=== PATIENT | male | born 1985 | race Caucasian/White ===

== ENCOUNTER 2019-08-29 10:37 | Emergency (ER) | payer MEDICAID ==
[2019-08-29 10:56] VITALS: BP 169/105
[2019-08-29 11:19] LABS: APPEARANCE,URINE SLIGHTLY-CLOUDY; BILIRUBIN,URINE NEGATIVE (NEGATIVE); COLOR,URINE AMBER; GLUCOSE, URINE NEGATIVE (NEGATIVE); KETONES,URINE TRACE mg/dL (NEGATIVE); LEUKOCYTE ESTERASE,URINE NEGATIVE (NEGATIVE); NITRITE,URINE NEGATIVE (NEGATIVE); PROTEIN,URINE 30 mg/dL (NEGATIVE); URINE SPECIFIC GRAVITY 1.034
[2019-08-29 11:44] LABS: ABSOLUTE BASOPHILS # (AUTO) 0.1 10^3/uL (0.0-0.2); ABSOLUTE MONOCYTES (AUTO) 0.5 10^3/uL (0.1-1.4); ABSOLUTE NEUT (AUTO) 3.7 10^3/uL (1.7-8.2); BASOPHILS % (AUTO) 1.1 % (0-2); EOSINOPHILS % (AUTO) 0.6 % (0-6); HEMATOCRIT 36.6 % (37.9-51.0); HEMOGLOBIN 12.3 g/dL (13.5-17.0); LYMPHOCYTES % (AUTO) 31.4 % (13-45); MEAN CORPUSCULAR HEMOGLOBIN 26.5 pg (27.0-33.4); MEAN CORPUSCULAR HGB CONC 33.7 g/dL (32.0-36.0); MEAN CORPUSCULAR VOLUME 79 fl (80-97); MONOCYTES % (AUTO) 8.4 % (3-13); PLATELET COUNT 278 10^3/uL (150-450); RED BLOOD COUNT 4.65 10^6/uL (4.35-5.55); RED CELL DISTRIBUTION WIDTH 13.4 % (11.5-14.0); SEGMENTED NEUTROPHILS % (AUTO) 58.5 % (42-78); TOTAL CELLS COUNTED % (AUTO) 100 %; WHITE BLOOD COUNT 6.3 10^3/uL (4.0-10.5)
[2019-08-29 12:00] LABS: URINE BARBITURATES SCREEN NEGATIVE; URINE BENZODIAZEPINES SCREEN NEGATIVE; URINE COCAINE SCREEN NEGATIVE; URINE MARIJUANA (THC) SCREEN NEGATIVE; URINE PHENCYCLIDINE SCREEN NEGATIVE
[2019-08-29 12:03] LABS: ALBUMIN 4.1 g/dL (3.5-5.0); ALKALINE PHOSPHATASE 97 U/L (38-126); ASPARTATE AMINO TRANSFERASE 21 U/L (17-59); BILIRUBIN,TOTAL 0.4 mg/dL (0.2-1.3); BLOOD UREA NITROGEN 15 mg/dL (7-20); CALCIUM 9.1 mg/dL (8.4-10.2); CARBON DIOXIDE 30 mmol/L (22-30); CHLORIDE 107 mmol/L (98-107); GLUCOSE 103 mg/dL (75-110); TOTAL PROTEIN 7.4 g/dL (6.3-8.2)
[2019-08-29 12:06] LABS: ANION GAP 4 (5-19)
[2019-08-29 12:16] LABS: URINE METHADONE SCREEN UNCONFIRMED POSITIVE
--- NOTE | 2019-08-29 13:00 | ER Document Report ---
Entered by KYA BURTON SCRIBE 08/29/19 1125 Acting as scribe for:MILAGROS WAY MD ED General - General Chief Complaint: Flank Pain Stated Complaint: FLANK PAIN Time Seen by Provider: 08/29/19 11:04 Primary Care Provider: KALYAN KU [NO SILVIA MD] - Follow up as needed Information source: Patient Notes: This 34-year-old male with hypertension presents to the emergency department complaining of his "right kidney being cold to touch" for a year and a half. Patient said that his "whole body can be warm but kidneys are cold". Patient describes the pain as in the lower back bilaterally. Patient reports headache and depression. Patient denies difficulty swallowing, fever and chills. Patient said that he has been depressed, has not taken his medications or seen a physician since his mother 2 years ago. Patient denies suicide ideation. 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 Patient states that he is clean "for the most part". Patient said that he was only here because his girlfriend checked in and told him to get checked for his chronic issue. - Related Data Allergies/Adverse Reactions: Penicillins Allergy (Verified 07/18/12 18:08) Past Medical History - General Information source: Patient - Social History Smoking Status: Current Every Day Smoker Cigarette use (# per day): Yes Chew tobacco use (# tins/day): No Frequency of alcohol use: None Drug Abuse: Heroin Lives with: Spouse/Significant other Family History: None, DM Patient has homicidal ideation: No - Past Medical History Cardiac Medical History: Reports: Hx Hypertension - Not taking medications Psychiatric Medical History: Reports: Hx Depression Surgical Hx: Negative - Immunizations Hx Diphtheria, Pertussis, Tetanus Vaccination: Yes Review of Systems - Review of Systems Constitutional: See HPI. denies: Chills, Fever EENT: See HPI. denies: Difficulty swallowing Cardiovascular: No symptoms reported Respiratory: No symptoms reported Gastrointestinal: No symptoms reported Genitourinary: No symptoms reported Male Genitourinary: No symptoms reported Musculoskeletal: See HPI, Back pain Skin: No symptoms reported Hematologic/Lymphatic: No symptoms reported Neurological/Psychological: See HPI, Depression, Headaches. denies: Suicidal ideation -: Yes All other systems reviewed and negative Physical Exam - Vital signs Vitals: Temp Pulse Resp BP Pulse Ox 98.5 F 108 H 20 169/105 H 99 08/29/19 10:55 08/29/19 10:55 08/29/19 10:55 08/29/19 10:55 08/29/19 10:55 - Notes Notes: Physical Exam: General: Alert, appears well. HEENT: Normocephalic. Atraumatic. PERRL. Extraocular movements intact. Oropharynx clear. Neck: Supple. Non-tender. Respiratory: No respiratory distress. Clear and equal breath sounds bilaterally. Cardiovascular: Regular rate and rhythm. Abdominal: Normal Inspection. Non-tender. No distension. Normal Bowel Sounds. Back: No gross abnormalities. Extremities: Moves all four extremities. Upper extremities: Normal inspection. Normal ROM. Lower extremities: Normal inspection. No edema. Normal ROM. Neurological: Normal cognition. AAOx4. Normal speech. Psychological: Normal affect. Normal Mood. Skin: Warm. Dry. Normal color. Course - Re-evaluation Re-evalutation: 08/29/19 12:46 No signs of distress, resting comfortably. - Vital Signs Vital signs: Temp Pulse Resp BP Pulse Ox 98.5 F 108 H 20 169/105 H 99 08/29/19 11:11 08/29/19 10:55 08/29/19 10:55 08/29/19 10:55 08/29/19 10:55 08/29/19 12:46 Systolic diastolic hypertension. Patient has noncompliance on blood pressure medicine pulse 180 afebrile pulse ox 99% within normal limits. - Laboratory Result Diagrams: 08/29/19 11:30 08/29/19 11:30 Laboratory results interpreted by me: 08/29/19 08/29/19 08/29/19 11:00 11:30 11:30 Hgb 12.3 L Hct 36.6 L MCV 79 L MCH 26.5 L Anion Gap 4 L Urine Protein 30 H Urine Ketones TRACE H Urine Urobilinogen 2.0 H Discharge - Discharge Clinical Impression: Right flank discomfort, Left flank discomfort, Hypertension Disposition: AGAINST MEDICAL ADVICE Referrals: LOCALMD,NO [NO LOCAL MD] - Follow up as needed I personally performed the services described in the documentation, reviewed and edited the documentation which was dictated to the scribe in my presence, and it accurately records my words and actions.
== END 2019-08-29 12:35 | disposition left against medical advice (07) ==
LOC: ER 10:37
DX: R10.9 Unspecified abdominal pain (principal); I10 Essential (primary) hypertension; Z91.14 Patient's other noncompliance with medication regimen; M54.5 Low back pain; R51 Headache; F32.9 Major depressive disorder, single episode, unspecified; F17.210 Nicotine dependence, cigarettes, uncomplicated; F11.10 Opioid abuse, uncomplicated; Z79.891 Long term (current) use of opiate analgesic; Z88.0 Allergy status to penicillin
CPT/HCPCS: 36415; 80053; 80307; 81001; 85025; 99284

== ENCOUNTER 2020-01-15 07:05 | Emergency (ER) | payer MEDICAID ==
--- NOTE | 2020-01-15 08:17 | ER Document Report ---
ED Extremity Problem, Lower - General Chief Complaint: Ankle Pain Stated Complaint: ANKLE PAIN Time Seen by Provider: 01/15/20 08:11 Notes: CHIEF COMPLAINT: Left ankle and left third finger injury 2 days ago HPI: 34-year-old male presenting for evaluation of left ankle and foot pain left third finger pain secondary to fall after tripping in a [place] in his yard. Has been ambulatory despite the discomfort. Has taken ibuprofen at home. ROS: See HPI - all other systems were reviewed and are otherwise negative Constitutional: no fever Eyes: no drainage, no blurred vision ENT: no runny nose, no sore throat Cardiovascular: no chest pain Resp: no SOB, no cough GI: no vomiting, no diarrhea, no abdominal pain : no dysuria Integumentary: no rash Allergy: no hives Musculoskeletal: + extremity pain or swelling Neurological: no numbness/tingling, no weakness MEDICATIONS: I agree with the patient medications as charted by the RN. ALLERGIES: I agree with the allergies as charted by the RN. PAST MEDICAL HISTORY/PAST SURGICAL HISTORY: Reviewed and agree as charted by RN. SOCIAL HISTORY: Reviewed and agree as charted by RN. FAMILY HISTORY: No significant familial comorbid conditions directly related to patient complaint EXAM: Reviewed vital signs as charted by RN. CONSTITUTIONAL: Alert and oriented and responds appropriately to questions. Well-appearing; well-nourished HEAD: Normocephalic; atraumatic EYES: Conjunctivae clear, sclerae non-icteric ENT: normal nose; no rhinorrhea; moist mucous membranes NECK: Supple without meningismus CARD: RRR; no murmurs, no clicks, no rubs, no gallops; symmetric distal pulses RESP: Normal chest excursion without splinting or tachypnea; breath sounds clear and equal bilaterally; no wheezes, no rhonchi, no rales, pulse oximetry 90% on room air not hypoxic ABD/GI: Normal bowel sounds; non-distended; soft, non-tender, no rebound, no guarding; no palpable organomegaly or masses. BACK: The back appears normal and is non-tender to palpation, there is no CVA tenderness EXT: There is 2+ soft tissue edema over the left foot. There is tenderness on palpation over the entire dorsal left foot. No direct tenderness of the medial or lateral malleolus of the left ankle. Dorsalis pedis and posterior tibial pulses are present in the left foot and ankle. Sensation is intact in the toes with capillary refill less than 3 seconds. There is no proximal fibular pain on palpation of the left lower extremity. There is no visible soft tissue swelling of the left third finger, mild tenderness over the proximal phalanx of the left third finger on palpation with no visible bruising. There is no snuffbox tenderness in the left wrist on palpation SKIN: Normal color for age and race; warm; dry; good turgor; no acute lesions noted NEURO: Moves all extremities equally; Motor and sensory function intact PSYCH: The patient's mood and manner are appropriate. Grooming and personal hygiene are appropriate. MDM: 34-year-old male injury to the left ankle and foot left third finger will obtain x-ray for fracture - Related Data Allergies/Adverse Reactions: Penicillins Allergy (Verified 01/15/20 07:52) Past Medical History - Social History Smoking Status: Current Every Day Smoker Chew tobacco use (# tins/day): No Frequency of alcohol use: Rare Drug Abuse: None Family History: None, DM Patient has homicidal ideation: No - Past Medical History Cardiac Medical History: Reports: Hx Hypertension - Not taking medications Psychiatric Medical History: Reports: Hx Depression - Immunizations Hx Diphtheria, Pertussis, Tetanus Vaccination: Yes Physical Exam - Vital signs Vitals: Temp Pulse Resp BP Pulse Ox 98.4 F 115 H 17 121/63 94 01/15/20 07:13 01/15/20 07:13 01/15/20 07:13 01/15/20 07:13 01/15/20 07:13 Course - Re-evaluation Re-evalutation: 01/15/20 09:06 X-ray imaging of the ankle foot and left hand do not show evidence of fracture on my review. Likely an ankle sprain and finger sprain will place in splints for comfort, pain management, follow-up orthopedics - Vital Signs Vital signs: Temp Pulse Resp BP Pulse Ox 98.4 F 115 H 17 121/63 94 01/15/20 07:53 01/15/20 07:13 01/15/20 07:13 01/15/20 07:13 01/15/20 07:13 Procedures - Immobilization Left Ankle Time completed: 09:06 Pre-Proc Neuro Vasc Exam: Normal Immobilizer type: Ankle stirrup, Crutches Performed by: PCT Post-Proc Neuro Vasc Exam: Normal, Unchanged from pre-exam Alignment checked and good: Yes Left Finger 3rd digit Time completed: 09:07 Pre-Proc Neuro Vasc Exam: Normal Immobilizer type: Finger splint (Static) Performed by: PCT Post-Proc Neuro Vasc Exam: Normal, Unchanged from pre-exam Alignment checked and good: Yes Discharge - Discharge Clinical Impression: Fall Qualifiers: Encounter type: initial encounter Qualified Code(s): W19.XXXA - Unspecified fall, initial encounter Left ankle sprain Qualifiers: Encounter type: initial encounter Involved ligament of ankle: unspecified ligament Qualified Code(s): S93.402A - Sprain of unspecified ligament of left ankle, initial encounter Sprain of finger of left hand Qualifiers: Encounter type: initial encounter Finger: middle finger Sprain of finger site: metacarpophalangeal joint Qualified Code(s): S63.653A - Sprain of metacarpophalangeal joint of left middle finger, initial encounter Condition: Stable Disposition: HOME, SELF-CARE Additional Instructions: Ice and elevate the foot and ankle is much as possible. Use the ankle splint and crutches limited weightbearing over the next 3 to 5 days. Then begin weightbearing as tolerated. X-ray imaging did not show definitive evidence of a fracture or broken bone today. Take the Voltaren consistently for pain. Follow-up closely with orthopedics for further evaluation call for appointment Prescriptions: Diclofenac Sodium [Voltaren 50 Mg Tablet.] 50 mg PO BID #20 tablet. Referrals: BNE PRIDE JR, DO [ACTIVE PROVISIONAL STAFF] - Follow up as needed
[2020-01-15] MEDS ORDERED: HYDROCODONE/ACETAMINOPHEN 5-325 MG TABLET PO ONE (09:05)
--- NOTE | 2020-01-15 09:41 | RADIOLOGY REPORT (SQ) ---
EXAM DESCRIPTION: ANKLE LEFT COMPLETE; FOOT LEFT COMPLETE IMAGES COMPLETED DATE/TIME: 01/15/2020 8:47 am REASON FOR STUDY: ankle and foot injury; ankle injury COMPARISON: None. NUMBER OF VIEWS: Six views. TECHNIQUE: AP, lateral, and oblique radiographic images acquired of the left foot ankle. LIMITATIONS: None. FINDINGS: MINERALIZATION: Normal. BONES: No acute fracture or dislocation. No worrisome bone lesions. JOINTS: No effusions. SOFT TISSUES: Ankle swelling. No foreign body. OTHER: No other significant finding. IMPRESSION: No fracture. TECHNICAL DOCUMENTATION: JOB ID: [id number] 2010 [employer]- All Rights Reserved Reading location - IP/workstation name: [email or web address]
--- NOTE | 2020-01-15 09:41 | RADIOLOGY REPORT (SQ) ---
EXAM DESCRIPTION: HAND LEFT 3 VIEWS IMAGES COMPLETED DATE/TIME: 01/15/2020 8:47 am REASON FOR STUDY: ankle foot and hand injury with left hand pain COMPARISON: 02/13/2007 EXAM PARAMETERS: NUMBER OF VIEWS: Three views. TECHNIQUE: AP, lateral and oblique radiographic images acquired of the left hand. LIMITATIONS: None. FINDINGS: MINERALIZATION: Normal. BONES: No acute fracture or dislocation. No worrisome bone lesions. JOINTS: No effusions. SOFT TISSUES: No soft tissue swelling. No foreign body. OTHER: No other significant finding. IMPRESSION: NEGATIVE STUDY OF THE LEFT HAND. NO RADIOGRAPHIC EVIDENCE OF ACUTE INJURY. TECHNICAL DOCUMENTATION: JOB ID: [id number] 2010 [employer]- All Rights Reserved Reading location - IP/workstation name: [email or web address]
--- NOTE | 2020-01-15 09:41 | RADIOLOGY REPORT (SQ) ---
EXAM DESCRIPTION: ANKLE LEFT COMPLETE; FOOT LEFT COMPLETE IMAGES COMPLETED DATE/TIME: 01/15/2020 8:47 am REASON FOR STUDY: ankle and foot injury; ankle injury COMPARISON: None. NUMBER OF VIEWS: Six views. TECHNIQUE: AP, lateral, and oblique radiographic images acquired of the left foot ankle. LIMITATIONS: None. FINDINGS: MINERALIZATION: Normal. BONES: No acute fracture or dislocation. No worrisome bone lesions. JOINTS: No effusions. SOFT TISSUES: Ankle swelling. No foreign body. OTHER: No other significant finding. IMPRESSION: No fracture. TECHNICAL DOCUMENTATION: JOB ID: [id number] 2010 [employer]- All Rights Reserved Reading location - IP/workstation name: [email or web address]
[2020-01-15 09:51] VITALS: BP 117/71
== END 2020-01-15 09:51 | disposition home or self-care (01) ==
LOC: ER 07:05
DX: S93.402A Sprain of unspecified ligament of left ankle, initial encounter (principal); S63.653A Sprain of metacarpophalangeal joint of left middle finger, initial encounter; M79.672 Pain in left foot; W01.0XXA Fall on same level from slipping, tripping and stumbling without subsequent striking against object, initial encounter; F17.200 Nicotine dependence, unspecified, uncomplicated; I10 Essential (primary) hypertension; Z88.0 Allergy status to penicillin
CPT/HCPCS: 99284

== ENCOUNTER 2020-01-22 14:55 | Inpatient (IN) | payer MEDICAID ==
--- NOTE | 2020-01-22 16:24 | ER Document Report ---
ED Extremity Problem, Upper - General Chief Complaint: Flank Pain Stated Complaint: SHOULDER PAIN,LOWER BACK PAIN, Time Seen by Provider: 01/22/20 16:17 Mode of Arrival: Wheelchair Information source: Patient Notes: 34-year-old male presented to ED for complaint of right shoulder and bilateral kidney pain. He also had a fever of 102.7 and EMS they gave him Tylenol 975 and the EMS temperature is now 98.1. He is very diaphoretic from his fever breaking. He states he is very malnourished has not been eating properly. He states he also injured his shoulder right shoulder last night when his girlfriend and her boyfriend came into the house because they knew he was by himself. He states when he swung it them he somehow injured his right shoulder. He states when they found out that he has started going back to the methadone clinic and they want to know if he was really going to the methadone clinic. He states he knew he was by himself so they came in his house and he had to khari them out. I have greeted and performed a rapid initial assessment of this patient. A comprehensive ED assessment and evaluation of the patient, analysis of test results and completion of medical decision making process will be conducted by an additional ED providers. - Related Data Allergies/Adverse Reactions: Penicillins Allergy (Verified 01/15/20 07:52) Past Medical History - Social History Family History: None, DM - Past Medical History Cardiac Medical History: Reports: Hx Hypertension - Not taking medications Psychiatric Medical History: Reports: Hx Depression - Immunizations Hx Diphtheria, Pertussis, Tetanus Vaccination: Yes Physical Exam - Vital signs Vitals: Temp Pulse Resp BP Pulse Ox 98.1 F 101 H 20 110/58 L 97 01/22/20 15:12 01/22/20 15:12 01/22/20 15:12 01/22/20 15:12 01/22/20 15:12 Course - Vital Signs Vital signs: Temp Pulse Resp BP Pulse Ox 98.1 F 101 H 20 110/58 L 97 01/22/20 15:12 01/22/20 15:12 01/22/20 15:12 01/22/20 15:12 01/22/20 15:12
--- NOTE | 2020-01-22 16:25 | ER Document Report ---
ED Medical Screen (RME) - General Chief Complaint: Flank Pain Stated Complaint: SHOULDER PAIN,LOWER BACK PAIN, Time Seen by Provider: 01/22/20 16:17 Mode of Arrival: Wheelchair Notes: 34-year-old male presented to ED for complaint of right shoulder and bilateral kidney pain. He also had a fever of 102.7 and EMS they gave him Tylenol 975 and the EMS temperature is now 98.1. He is very diaphoretic from his fever anthony aking. He states he is very malnourished has not been eating properly. He states he also injured his shoulder right shoulder last night when his girlfriend and her boyfriend came into the house because they knew he was by himself. He states when he swung it them he somehow injured his right shoulder. He states when they found out that he has started going back to the methadone clinic and they want to know if he was really going to the methadone clinic. He states he knew he was by himself so they came in his house and he had to khari them out. I have greeted and performed a rapid initial assessment of this patient. A comprehensive ED assessment and evaluation of the patient, analysis of test results and completion of medical decision making process will be conducted by an additional ED providers. - Related Data Allergies/Adverse Reactions: Penicillins Allergy (Verified 01/15/20 07:52) Past Medical History - Past Medical History Cardiac Medical History: Reports: Hx Hypertension - Not taking medications Psychiatric Medical History: Reports: Hx Depression - Immunizations Hx Diphtheria, Pertussis, Tetanus Vaccination: Yes Physical Exam - Vital signs Vitals: Temp Pulse Resp BP Pulse Ox 98.1 F 101 H 20 110/58 L 97 01/22/20 15:12 01/22/20 15:12 01/22/20 15:12 01/22/20 15:12 01/22/20 15:12 Course - Vital Signs Vital signs: Temp Pulse Resp BP Pulse Ox 98.1 F 101 H 20 110/58 L 97 01/22/20 16:18 01/22/20 15:12 01/22/20 15:12 01/22/20 15:12 01/22/20 15:12
--- NOTE | 2020-01-22 17:46 | RADIOLOGY REPORT (SQ) ---
EXAM DESCRIPTION: CHEST SINGLE VIEW IMAGES COMPLETED DATE/TIME: 01/22/2020 5:04 pm REASON FOR STUDY: fever COMPARISON: None. EXAM PARAMETERS: NUMBER OF VIEWS: One view. TECHNIQUE: Single frontal radiographic view of the chest acquired. RADIATION DOSE: NA LIMITATIONS: None. FINDINGS: LUNGS AND PLEURA: There are patchy areas of opacification in the right mid and lower lung grajeda and to a lesser degree in the left base. MEDIASTINUM AND HILAR STRUCTURES: No masses. Contour normal. HEART AND VASCULAR STRUCTURES: Heart normal in size. Normal vasculature. BONES: No acute findings. HARDWARE: None in the chest. OTHER: No other significant finding. IMPRESSION: Multicentric opacification the lungs. Likely multicentric pneumonia. Recommend follow- up after treatment. TECHNICAL DOCUMENTATION: JOB ID: [id number] 2010 [employer]- All Rights Reserved Reading location - IP/workstation name: [email or web address]
--- NOTE | 2020-01-22 18:03 | EKG REPORT ---
SEVERITY:- NORMAL ECG - SINUS RHYTHM BASELINE ARTEFACT : Confirmed by: Jordi Allison MD 22-Jan-2020 18:02:28
[2020-01-22] MEDS: NORMAL SALINE 1000 ML 1,000 ML IV PRN ×2 (18:19→19:13)
[2020-01-22 18:54] LABS: A TYPE INFLUENZA AG NEGATIVE (NEGATIVE); B INFLUENZA AG NEGATIVE (NEGATIVE)
[2020-01-22 19:05] LABS: INTERNATIONAL RATION (INR) 1.35; PROTHROMBIN TIME 16.8 SEC (11.4-15.4)
[2020-01-22 19:09] LABS: ABSOLUTE LYMPHOCYTES (AUTO) 0.9 10^3/uL (0.5-4.7); ABSOLUTE MONOCYTES (AUTO) 0.9 10^3/uL (0.1-1.4); ABSOLUTE NEUT (AUTO) 8.2 10^3/uL (1.7-8.2); BASOPHILS % (AUTO) 0.3 % (0-2); EOSINOPHILS % (AUTO) 0.4 % (0-6); LYMPHOCYTES % (AUTO) 8.6 % (13-45); MEAN CORPUSCULAR HEMOGLOBIN 26.1 pg (27.0-33.4); MEAN CORPUSCULAR HGB CONC 34.4 g/dL (32.0-36.0); MEAN CORPUSCULAR VOLUME 76 fl (80-97); MONOCYTES % (AUTO) 9.1 % (3-13); PLATELET COUNT 101 10^3/uL (150-450); RED BLOOD COUNT 3.83 10^6/uL (4.35-5.55); RED CELL DISTRIBUTION WIDTH 14.2 % (11.5-14.0); SEGMENTED NEUTROPHILS % (AUTO) 81.6 % (42-78); TOTAL CELLS COUNTED % (AUTO) 100 %
[2020-01-22 19:33] LABS: ALBUMIN 2.4 g/dL (3.5-5.0); ALKALINE PHOSPHATASE 226 U/L (38-126); ANION GAP 9 (5-19); ASPARTATE AMINO TRANSFERASE 109 U/L (17-59); BILIRUBIN,DIRECT 0.4 mg/dL (0.0-0.4); BILIRUBIN,TOTAL 0.9 mg/dL (0.2-1.3); BLOOD UREA NITROGEN 17 mg/dL (7-20); CALCIUM 7.5 mg/dL (8.4-10.2); CARBON DIOXIDE 30 mmol/L (22-30); CHLORIDE 91 mmol/L (98-107); GLUCOSE 100 mg/dL (75-110); POTASSIUM 3.4 mmol/L (3.6-5.0); TOTAL PROTEIN 6.4 g/dL (6.3-8.2)
[2020-01-22] MEDS ORDERED: CALCIUM GLUCONATE 1000 MG/10 ML INJ IV ONE (19:39)
[2020-01-22] MEDS ORDERED: VANCOMYCIN HCL INJ 1000 MG VIAL IV ONE (19:39)
--- NOTE | 2020-01-22 20:43 | RADIOLOGY REPORT (SQ) ---
CT CHEST, ABDOMEN, AND PELVIS HISTORY: Flank pain. Pneumonia. COMPARISON: None. TECHNIQUE: CT scan of the chest, abdomen, and pelvis without IV contrast. This exam was performed according to our departmental dose-optimization program, which includes automated exposure control, adjustment of the mA and/or kV according to patient size and/or use of iterative reconstruction technique. FINDINGS: There are multiple collaterals scattered cavitary nodules throughout both lungs, with the largest lesion in the left lung base measuring 4.7 x 2.9 cm. There are also scattered areas of alteration and groundglass opacity predominantly in the right lower lobe. Trace bilateral pleural effusions but no pneumothorax. Normal heart size without pericardial effusion. The liver, spleen, pancreas, gallbladder, adrenal glands, and kidneys are unremarkable. No obstructing urinary stones are seen. The pelvic organs are also unremarkable. No bowel obstruction or inflammation. No intraperitoneal free fluid, free air, or adenopathy. The aorta is normal in caliber. No acute bony findings are seen. No abnormal body wall hernia. IMPRESSION: 1. Multiple bilateral cavitary nodules throughout both lungs with the largest measuring 4.7 cm and the left lower lobe. This may represent disseminated bacterial or tuberculous infection, immunologic sequela, or neoplastic disease. 2. No urinary stones or hydronephrosis.
[2020-01-22 20:45] LABS: URINE BARBITURATES SCREEN NEGATIVE; URINE BENZODIAZEPINES SCREEN NEGATIVE; URINE COCAINE SCREEN NEGATIVE; URINE MARIJUANA (THC) SCREEN NEGATIVE; URINE METHADONE SCREEN NEGATIVE; URINE PHENCYCLIDINE SCREEN NEGATIVE
[2020-01-22 20:46] LABS: URINE AMPHETAMINES SCREEN UNCONFIRMED POSITIVE
[2020-01-22 20:57] LABS: VENOUS BLOOD BASE EXCESS 3.9 mmol/L; VENOUS BLOOD HCO3 30.4 mmol/L (20-32); VENOUS BLOOD PCO2 52.1 mmHg (35-63); VENOUS BLOOD PH 7.38 (7.30-7.42)
[2020-01-22] MEDS ORDERED: POTASSIUM CHLORIDE 20 MEQ PACKET PO ONE ×2 (21:21→23:06)
[2020-01-22] MEDS ORDERED: ACETAMINOPHEN 325 MG TABLET PO ONE (21:28)
--- NOTE | 2020-01-22 21:33 | ER Document Report ---
ED General - General Chief Complaint: Flank Pain Stated Complaint: SHOULDER PAIN,LOWER BACK PAIN, Time Seen by Provider: 01/22/20 16:17 Mode of Arrival: Wheelchair Notes: Patient is a 34-year-old male who presents emergency department with a chief complaint of right shoulder and bilateral kidney pain. Patient states that he has a history of IV drug use. Patient states that he is currently on methadone. Patient states that he had relapsed and ended up taking some heroin. Denies using it IV. States that he snorted it. Denies any contact with anybody who tested positive for COVID-19. Patient was brought in via EMS. He had a temperature of 102. He was given Tylenol. - Related Data Allergies/Adverse Reactions: Penicillins Allergy (Verified 01/15/20 07:52) Past Medical History - Social History Smoking Status: Current Every Day Smoker Family History: None, DM Patient has homicidal ideation: No - Past Medical History Cardiac Medical History: Reports: Hx Hypertension - Not taking medications Psychiatric Medical History: Reports: Hx Depression - Immunizations Hx Diphtheria, Pertussis, Tetanus Vaccination: Yes Review of Systems - Review of Systems Notes: REVIEW OF SYSTEMS: CONSTITUTIONAL : Denies recent illness. Denies recent unintentional weight loss. Denies fever, chills, or sweats. EENT: Denies eye, ear, throat, or mouth pain, discharge, or symptoms. Denies nasal or sinus congestion. CARDIOVASCULAR: Denies chest pain. RESPIRATORY: See HPI. GASTROINTESTINAL: Denies nausea, vomiting, and diarrhea. Denies abdominal pain. Denies constipation. GENITOURINARY: Denies difficulty urinating, burning, blood in urine, urgency or frequency. MUSCULOSKELETAL: See HPI. Denies joint pain or swelling. SKIN: Denies rash, itchiness, or lesions HEMATOLOGIC : Denies easy bruising or bleeding. LYMPHATIC: Denies swollen, painful, enlarged glands. NEUROLOGICAL: Denies no numbness or tingling denies weakness. Denies headache. Denies altered mental status. Denies alteration in speech. PSYCHIATRIC: Denies stress, anxiety, alteration in sleep patterns, or depression. All other systems reviewed and negative. Physical Exam - Vital signs Vitals: Temp Pulse Resp BP Pulse Ox 98.1 F 101 H 20 110/58 L 97 01/22/20 15:12 01/22/20 15:12 01/22/20 15:12 01/22/20 15:12 01/22/20 15:12 - Notes Notes: PHYSICAL EXAMINATION: GENERAL: Appears well, healthy, well-nourished, no acute distress. HEAD: Normocephalic, atraumatic. EYES: PERRL, conjunctiva normal, all extraocular movements intact, sclera nonicteric ENT: Moist mucous membranes. NECK: Supple, no noticeable swelling, redness, rash. Normal range of motion. LUNGS: Diminished breath sounds throughout all lung grajeda. CARDIOVASCULAR: S1-S2, regular rate, regular rhythm. Radial pulses 2+, normal. ABDOMEN: Normoactive bowel sounds. Soft, nontender, no guarding, no rebound tenderness, and no masses palpated. EXTREMITIES: Normal strength and range of motion, no pitting or edema. No cyanosis. NEUROLOGICAL: Moves all extremities upon command. Strength 5/5 in all extremities. PSYCH: Normal mood, normal affect. SKIN: Warm, dry. No rash, lesions, ulcerations noted. Normal skin turgor. BACK: Bilateral CVA tenderness noted. Course - Re-evaluation Re-evalutation: 01/22/20 21:34 Patient shows cavitary lesions noted on his CT, concerning for tuberculosis. We will also test him for COVID-19. I spoke with Dr. Hensley, the radiologist. I asked him if he was able to see any evidence of an epidural abscess. He states that based off the - Vital Signs Vital signs: Temp Pulse Resp BP Pulse Ox 99.7 F 88 13 123/61 95 01/22/20 22:44 01/22/20 22:44 01/22/20 22:44 01/22/20 22:44 01/22/20 22:44 - Laboratory Result Diagrams: 01/22/20 18:14 01/22/20 18:14 Laboratory results interpreted by me: 01/22/20 01/22/20 01/22/20 18:14 18:14 18:14 RBC 3.83 L Hgb 10.0 L Hct 29.0 L MCV 76 L MCH 26.1 L RDW 14.2 H Plt Count 101 L Lymph % (Auto) 8.6 L Seg Neutrophils % 81.6 H PT 16.8 H Sodium 130.2 L Potassium 3.4 L Chloride 91 L Calcium 7.5 L AST 109 H ALT 82 H Alkaline Phosphatase 226 H Albumin 2.4 L Discharge - Discharge Clinical Impression: Suspected COVID-19 virus infection, Suspected tuberculosis, Malaise and fatigue Fever Qualifiers: Fever type: unspecified Qualified Code(s): R50.9 - Fever, unspecified Condition: Fair Disposition: ADMITTED INPATIENT Admitting Provider: Dr. Nobles Unit Admitted: Medical Floor - Covid rule out
[2020-01-22] MEDS ORDERED: ONDANSETRON HCL INJ/PF 4 MG/2 ML SDV IV PRN (22:27)
[2020-01-22] MEDS ORDERED: FAMOTIDINE 20 MG TABLET PO ONE (23:00)
--- NOTE | 2020-01-22 23:04 | PDOC H&P ---
History of Present Illness Admission Date/PCP: 01/22/20 22:49 Patient complains of: Cough, fever, chest pain. Right shoulder pain History of Present Illness: MARIA L PA is a 34 year old male with a history of IV drug use currently in recovery at methadone clinic now presents to the ER complaining of right shoulder pain after he swung his arm yesterday. On further questioning patient also states that he has been having cough productive of blood-streaked sputum for the past 3 weeks. He also endorses pleuritic chest pain bilaterally with exertional shortness of breath. Patient also has associated subjective fever night sweats, loss of appetite and he states that he lost about 40 pounds in the past 3 weeks. He states that he generally feels weak. He denies any nausea, vomiting, diarrhea, dysuria, hematuria, yellowish discoloration of thigh or any skin rash. Has no orthopnea, PND, leg swelling. Denies any recent sick contact history. He states that he is currently in recovery for opioid use and following up with methadone clinic the past 6-month but he has not relapsed recently and he snorted heroin but denies any IV drug use the past few weeks. Past Medical History Cardiac Medical History: Reports: Hypertension - Not taking medications Psychiatric Medical History: Reports: Depression Social History Information Source: Patient Lives with: Friend Smoking Status: Current Every Day Smoker Hx Recreational Drug Use: Yes Drugs: Heroin - Advance Directive Resuscitation Status: Full Code Family History Family History: None, DM Parental Family History Reviewed: Yes Children Family History Reviewed: Yes Sibling(s) Family History Reviewed.: Yes Medication/Allergy Home Medications: Ibuprofen [Motrin 800 mg Tablet] 800 mg PO TID #30 tablet 07/18/12 No Home Medications 07/18/12 Diclofenac Sodium [Voltaren 50 Mg Tablet.] 50 mg PO BID #20 tablet. 01/15/20 Allergies/Adverse Reactions: Penicillins Allergy (Verified 01/15/20 07:52) Review of Systems Constitutional: PRESENT: as per HPI Eyes: ABSENT: visual disturbances Ears: ABSENT: hearing changes Nose, Mouth, and Throat: ABSENT: as per HPI, headache(s), mouth pain, sore throat, vertigo, other Cardiovascular: ABSENT: chest pain, dyspnea on exertion, edema, orthropnea, palpitations Respiratory: PRESENT: as per HPI Gastrointestinal: ABSENT: abdominal pain, constipation, diarrhea, hematemesis, hematochezia, nausea, vomiting Genitourinary: ABSENT: dysuria, hematuria Musculoskeletal: PRESENT: as per HPI Integumentary: ABSENT: rash, wounds Endocrine: ABSENT: cold intolerance, heat intolerance, polydipsia, polyuria Hematologic/Lymphatic: ABSENT: easy bleeding, easy bruising Physical Exam Vital Signs: Temp Pulse Resp BP Pulse Ox 99.7 F 88 13 123/61 95 01/22/20 22:44 01/22/20 22:44 01/22/20 22:44 01/22/20 22:44 01/22/20 22:44 Intake & Output 01/21/20 01/22/20 01/23/20 06:59 06:59 06:59 Intake Total 189 Balance 189 Weight 74.8 kg Additional comments: GENERAL APPEARANCE: Acutely sick looking but not in respiratory distress HEENT: Normocephalic and atraumatic. No scleral icterus. Dry oral mucosa NECK: Supple. No lymphadenopathy.No carotid bruit. No JVD CHEST: Symmetric. Nontender to palpation. LUNGS: Breath sounds are equal and clear bilaterally. No wheezes, rhonchi, or rales. HEART: Regular rate and rhythm with normal S1 and S2. No murmurs, gallops, or rubs. ABDOMEN: Flat, soft, normoactive bowel sounds, liver palpable 3 cm below right costal margin. No splenomegaly appreciated. Nontender to palpation, no CVA tenderness EXTREMITIES: No cyanosis, clubbing, or edema. MUSCULOSKELETAL: Has right shoulder pain and tenderness with limitation of movement but no swelling or deformity noted PSYCHIATRIC: The patient is awake, alert, and oriented x3. Recent and remote memory is intact. Appropriate mood and affect. SKIN: Warm, dry, and well perfused. No lesions or rashes are noted. NEUROLOGIC: No focal sensory or motor deficits are noted. Results Laboratory Results: 01/22/20 18:14 01/22/20 18:14 01/22/20 01/22/20 01/22/20 18:14 18:14 20:20 WBC 10.0 RBC 3.83 L Hgb 10.0 L Hct 29.0 L MCV 76 L MCH 26.1 L MCHC 34.4 RDW 14.2 H Plt Count 101 L Seg Neutrophils % 81.6 H VBG pH 7.38 VBG pCO2 52.1 VBG HCO3 30.4 VBG Base Excess 3.9 Sodium 130.2 L Potassium 3.4 L Chloride 91 L Carbon Dioxide 30 Anion Gap 9 BUN 17 Creatinine 0.64 Est GFR ( Amer) > 60 Glucose 100 Lactic Acid Calcium 7.5 L Total Bilirubin 0.9 AST 109 H Alkaline Phosphatase 226 H Total Protein 6.4 Albumin 2.4 L 01/22/20 20:20 WBC RBC Hgb Hct MCV MCH MCHC RDW Plt Count Seg Neutrophils % VBG pH VBG pCO2 VBG HCO3 VBG Base Excess Sodium Potassium Chloride Carbon Dioxide Anion Gap BUN Creatinine Est GFR ( Amer) Glucose Lactic Acid 0.8 Calcium Total Bilirubin AST Alkaline Phosphatase Total Protein Albumin 01/22/20 18:14 Troponin I < 0.012 Impressions: Chest X-Ray 01/22/20 16:26 IMPRESSION: Multicentric opacification the lungs. Likely multicentric pneumonia. Recommend follow-up after treatment. Chest CT 01/22/20 19:42 IMPRESSION: 1. Multiple bilateral cavitary nodules throughout both lungs with the largest measuring 4.7 cm and the left lower lobe. This may represent disseminated bacterial or tuberculous infection, immunologic sequela, or neoplastic disease. 2. No urinary stones or hydronephrosis. Abdomen/Pelvis CT 01/22/20 19:43 IMPRESSION: 1. Multiple bilateral cavitary nodules throughout both lungs with the largest measuring 4.7 cm and the left lower lobe. This may represent disseminated bacterial or tuberculous infection, immunologic sequela, or neoplastic disease. 2. No urinary stones or hydronephrosis. Assessment and Plan - Diagnosis (1) Cavitary pneumonia Is this a current diagnosis for this admission?: Yes Plan: Patient presents with 3 weeks duration of cough with streaked sputum Has constitutional symptoms including significant weight loss CT chest with significant for multiple bilateral nodular cavitary lesions with the largest being 4.7 cm on the left lower lobe suggesting possible TB/related bacterial infection/immunologic process Started patient on vancomycin for staph coverage, is also on IV Levaquin We will continue work-up for TB, fungal infection On droplet isolation (2) Suspected tuberculosis Is this a current diagnosis for this admission?: Yes Plan: Patient presents with 3 weeks duration of cough with hemoptysis Has constitutional symptoms including significant weight loss, night sweat and subjective fever CT chest shows multiple bilateral cavitary lesions We will obtain sputum AFB x3 with AFB culture Ordered QuantiFERON gold, Histoplasma antibody and HIV test Patient may need work-up for malignancy, infective endocarditis and/or immunologic phenomenon like granulomatosis with polyangiitis if work-up for TB is negative (3) Hypokalemia Is this a current diagnosis for this admission?: Yes Plan: Serum potassium on presentation was 3.4 Gave oral potassium chloride 40 mEq Continue monitoring serum electrolytes (4) Transaminitis Is this a current diagnosis for this admission?: Yes Plan: Patient has elevated enzymes: AST/ALT/alk phos => 109/82/226 We will obtain hepatitis panel (5) History of intravenous drug use in remission Is this a current diagnosis for this admission?: Yes Plan: Currently in remission per patient report Following up with methadone Encouraged him to continue abstaining from illicit drug use (6) Hypoalbuminemia Is this a current diagnosis for this admission?: Yes - Time Time Spent with patient: 35 or more minutes Total Critical Time (Minutes): 50 Smoking Cessation Education: 3 to 10 minutes Medications reviewed and adjusted accordingly: Yes Anticipated Discharge Disposition: Home, Self Care Anticipated Discharge Timeframe: within 72 hours - Inpatient Certification Medical Necessity: Need Close Monitoring Due to Risk of Patient Decompensation, Need For IV Fluids, Need for IV Antibiotics Post Hospital Care: D/C or Transfer Summary
[2020-01-22] MEDS ORDERED: VANCOMYCIN HCL 0 MG in DEXTROSE 5%-WATER 250 ML IV NR (23:15)
[2020-01-23] MEDS ORDERED: VANCOMYCIN HCL INJ 1000 MG VIAL IV PRN (00:14)
[2020-01-23] MEDS ORDERED: VANCOMYCIN HCL 750 MG in DEXTROSE 5%-WATER 250 ML IV ONE (00:15)
[2020-01-23] MEDS: ACETAMINOPHEN 325 MG TABLET PO PRN ×2 (03:14→22:52)
[2020-01-23 03:41] LABS: ABSOLUTE LYMPHOCYTES (AUTO) 0.7 10^3/uL (0.5-4.7); ABSOLUTE MONOCYTES (AUTO) 0.7 10^3/uL (0.1-1.4); ABSOLUTE NEUT (AUTO) 7.4 10^3/uL (1.7-8.2); BASOPHILS % (AUTO) 0.3 % (0-2); EOSINOPHILS % (AUTO) 0.5 % (0-6); HEMATOCRIT 28.6 % (37.9-51.0); HEMOGLOBIN 9.9 g/dL (13.5-17.0); LYMPHOCYTES % (AUTO) 7.7 % (13-45); MEAN CORPUSCULAR HEMOGLOBIN 26.1 pg (27.0-33.4); MEAN CORPUSCULAR HGB CONC 34.6 g/dL (32.0-36.0); MEAN CORPUSCULAR VOLUME 75 fl (80-97); MONOCYTES % (AUTO) 7.7 % (3-13); SEGMENTED NEUTROPHILS % (AUTO) 83.8 % (42-78); TOTAL CELLS COUNTED % (AUTO) 100 %; WHITE BLOOD COUNT 8.8 10^3/uL (4.0-10.5)
[2020-01-23] MEDS ORDERED: LEVOFLOXACIN 750 MG/D5W RTU 750 MG/150 ML RTUPB IV ONE (04:00)
[2020-01-23 04:05] LABS: PLATELET COUNT 94 10^3/uL (150-450)
[2020-01-23 04:25] LABS: ALBUMIN 2.2 g/dL (3.5-5.0); ALKALINE PHOSPHATASE 198 U/L (38-126); ANION GAP 6 (5-19); ASPARTATE AMINO TRANSFERASE 73 U/L (17-59); BILIRUBIN,DIRECT 0.3 mg/dL (0.0-0.4); BILIRUBIN,TOTAL 0.6 mg/dL (0.2-1.3); BLOOD UREA NITROGEN 14 mg/dL (7-20); CALCIUM 7.5 mg/dL (8.4-10.2); CARBON DIOXIDE 28 mmol/L (22-30); CHLORIDE 99 mmol/L (98-107); GLUCOSE 117 mg/dL (75-110); POTASSIUM 3.5 mmol/L (3.6-5.0); TOTAL PROTEIN 6.1 g/dL (6.3-8.2)
[2020-01-23] MEDS ORDERED: RINGERS SOLUTION,LACTATED 1,000 ML IV ONE (09:00)
--- NOTE | 2020-01-23 09:17 | RADIOLOGY REPORT (SQ) ---
EXAM DESCRIPTION: SHOULDER RIGHT 2 OR MORE VIEWS IMAGES COMPLETED DATE/TIME: 01/23/2020 9:05 am REASON FOR STUDY: Right shoulder pain COMPARISON: None. NUMBER OF VIEWS: Three views. TECHNIQUE: Internal rotation, external rotation, and Y view images acquired of the right shoulder. LIMITATIONS: None. FINDINGS: MINERALIZATION: Normal. BONES: No acute fracture. No worrisome bone lesions. JOINTS: No dislocation. VISUALIZED LUNGS AND RIBS: Numerous bilateral pulmonary nodules as demonstrated on recent CT. SOFT TISSUES: No radiopaque foreign body. OTHER: No other significant finding. IMPRESSION: No acute findings in the shoulder. Numerous right-sided pulmonary nodules. TECHNICAL DOCUMENTATION: JOB ID: [id number] 2010 [employer]- All Rights Reserved Reading location - IP/workstation name: [email or web address]
[2020-01-23] MEDS: FAMOTIDINE 20 MG TABLET PO SCH ×2 (09:39→23:26)
[2020-01-23] MEDS: NICOTINE 21 MG/24 HR PATCH.TD24 TD SCH (09:44)
[2020-01-23] MEDS: ENOXAPARIN SODIUM INJ 40 MG/0.4 ML DISP.SYRIN SUBCUT SCH (09:44)
[2020-01-23] MEDS ORDERED: BUPRENORPHINE HCL 2 MG SUBLINGUAL TABLET SL SCH (10:00)
[2020-01-23] MEDS ORDERED: VANCOMYCIN HCL 0 MG in DEXTROSE 5%-WATER 250 ML IV NR (10:45)
--- NOTE | 2020-01-23 13:03 | Progress Note ---
Provider Note Provider Note: ID Consult Note- I was asked to review the patient's chart and chest x-ray and CT scan of chest and to make recommendations. Patient is a 34 yo male with a history of IVDA. He has blood cultures growing MRSA. CT scan shows multiple small 1-2 cm cavitary lesions in the periphery consistent with septic pulmonary emboli. He is currently receiving vancomycin. Assessment: 1. 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 Blood cultures growing MRSA. 2. History of IVDA. Recommendations: 1. Continue vancomycin. Check vancomycin RICHARD; if RICHARD >1, consider changing to daptomycin. Target trough RICHARD to 15 mcg/ml. 2. Repeat blood cultures to document clearance of bacteremia. 3. TTE to rule out tricuspid valve endocarditis. 4. Monitor for back pain. If he has localized back pain, would get MRI. 5. Plan for at least 4 weeks of antibiotics. Niko Posadas MD Pager: [phone]
[2020-01-23] MEDS ORDERED: VANCOMYCIN HCL 1,250 MG in DEXTROSE 5%-WATER 250 ML IV SCH (14:00)
[2020-01-23] MEDS: VANCOMYCIN HCL 1,250 MG in DEXTROSE 5%-WATER 250 ML IV SCH ×2 (15:00→22:55)
--- NOTE | 2020-01-23 16:42 | XCELERA REPORT ---
[address] [address] Transthoracic Echocardiogram Report Name: MARIA L PA Age: 34 yrs Gender: Male : 1985 Patient Status: Inpatient Patient Location: [facility]^A Study Date: 01/23/2020 02:36 PM Height: 68 in Weight: 164 lb BSA: 1.9 m2 Procedure: A complete two-dimensional transthoracic echocardiogram was performed (2D, M-mode, spectral and color flow Doppler). The study was technically adequate with some images being suboptimal in quality. Reason For Study: Ssupect infectious endocarditis Ordering Physician: MADDIE AMOS Performed By: Julissa Butcher Interpretation Summary The left ventricle is grossly normal size. Left ventricular systolic function is normal. The Ejection Fraction estimate is 60-65%. Doppler measurements suggest normal left ventricular diastolic function. The left ventricular wall motion is normal. There is a mobile, echo dense mass measuring 3.12 cm x 1.98 cm localized to the ventricular side of the tricuspid valve consistent with a vegetation. Trace MR, mild to moderate TR, trace PI. Mild pulmonary hypertension with pressures between 44 and 49 mmHg. Minimal, hemodynamically insignificant pericardial effusion. No prior studies for comparison. MMode/2D Measurements & Calculations RVDd: 3.4 cm LVIDd: 4.8 cm FS: 46.3 % Ao root diam: 2.9 cm IVSd: 2.2 cm LVIDs: 2.6 cm EDV(Teich): 106.9 ml Ao root area: 6.6 cm2 LVPWd: 1.0 cm ESV(Teich): 24.0 ml LA dimension: 3.6 cm EF(Teich): 77.6 % Doppler Measurements & Calculations MV E max amparo: MV P1/2t max amparo: Ao V2 max: LV V1 max P.9 cm/sec 80.2 cm/sec 122.8 cm/sec 5.1 mmHg MV A max amparo: MV P1/2t: 73.1 msec Ao max PG: LV V1 max: 64.8 cm/sec MVA(P1/2t): 3.0 cm2 6.0 mmHg 112.6 cm/sec MV E/A: 1.2 MV dec slope: 321.3 cm/sec2 MV dec time: 0.24 sec PA V2 max: PI end-d amparo: TR max amparo: MV P1/2t-pr_phl: 109.1 cm/sec 157.5 cm/sec 310.8 cm/sec 73.1 msec PA max PG: TR max P.8 mmHg 38.6 mmHg Left Ventricle The left ventricle is grossly normal size. Left ventricular systolic function is normal. The Ejection Fraction estimate is 60-65%. Doppler measurements suggest normal left ventricular diastolic function. The left ventricular wall motion is normal. Right Ventricle The right ventricle is mildly dilated. The right ventricular systolic function is normal. Atria The right atrium is normal. The left atrial size is normal. There is no Doppler evidence for an interatrial shunt. Mitral Valve The mitral valve is normal in structure and function. There is no vegetation seen on the mitral valve. There is no mitral valve stenosis. There is a trace amount of mitral regurgitation. Aortic Valve The aortic valve is normal in structure and functions normally. There is no aortic valvular vegetation. There is no aortic valve stenosis. No aortic regurgitation is present. Tricuspid Valve There is a mobile, echo dense mass measuring 3.12 cm x 1.98 cm localized to the ventricular side of the tricuspid valve consistent with a vegetation. There is no tricuspid stenosis. There is a mild to moderate amount of tricuspid regurgitation. Mild pulmonary hypertension with pressures between 44 and 49 mmHg. Pulmonic Valve The pulmonic valve is not well seen, but is grossly normal. There is a trace or physiologic amount of pulmonic regurgitation. Great Vessels The inferior vena cava appeared normal and decreased > 50% with respiration (RAP 5-10 mmHg). Effusions Minimal pericardial effusion. There is no pleural effusion. : MADDIE AMOS Antonio
--- NOTE | 2020-01-23 17:38 | PDOC PROGRESS REPORT ---
Subjective Progress Note for:: 01/23/20 Subjective:: Patient is resting in bed, complains of diffuse body aches and states that he cannot get comfortable. He tells me that he has a history of drug and use. Narcotic use previously treated with methadone and more recently with Subutex. Admits to non-compliance with Subutex noting recent methadone use 01/22/2020. Last IV drug use 01/14/2020. Father admits to sharing needles with his girlfriend. Denies cough, hemoptysis, SOB, CP at this time. Discussed case with patient's nurse. Pt's blood pressures have been steady around 100/60s. O2 sat 100% on room air. His only complaint to her thus far has been pain. No further complaints or concerns. Reason For Visit: PNEUMONIA,RULE OUT TB,RIGHT SHOULDER PAIN Physical Exam Vital Signs: Temp Pulse Resp BP Pulse Ox 98.1 F 81 13 108/62 100 01/23/20 08:51 01/23/20 08:51 01/22/20 22:44 01/23/20 08:51 01/23/20 08:51 Intake & Output 01/22/20 01/23/20 01/24/20 06:59 06:59 06:59 Intake Total 2399 Output Total 200 Balance 2199 Weight 74.8 kg General appearance: PRESENT: well-developed, other - Patient's appears acutely ill without respiratory distress. Head exam: PRESENT: atraumatic, normocephalic Eye exam: PRESENT: conjunctiva pink, EOMI, PERRLA. ABSENT: scleral icterus Mouth exam: PRESENT: dry mucosa, tongue midline Teeth exam: PRESENT: dental caries, poor dentation Neck exam: PRESENT: full ROM. ABSENT: JVD, tenderness Respiratory exam: PRESENT: clear to auscultation jany, symmetrical, unlabored. ABSENT: chest wall tenderness, tachypnea, wheezes Cardiovascular exam: PRESENT: RRR, +S1, +S2. ABSENT: diastolic murmur, systolic murmur Pulses: PRESENT: normal radial pulses GI/Abdominal exam: PRESENT: normal bowel sounds, soft. ABSENT: firm, tenderness Extremities exam: PRESENT: full ROM. ABSENT: clubbing, tenderness Musculoskeletal exam: PRESENT: ambulatory, full ROM, tenderness - Right shoulder pain and tenderness with movement. No deformity noted.. ABSENT: deformity, dislocation Neurological exam: PRESENT: alert, awake, oriented to person, oriented to place, oriented to time, oriented to situation, CN II-XII grossly intact. ABSENT: altered Psychiatric exam: PRESENT: unusual affect Focused psych exam: PRESENT: restlessness Skin exam: PRESENT: dry, intact, warm Results Laboratory Results: 01/23/20 03:30 01/23/20 03:30 01/22/20 01/22/20 01/22/20 18:14 18:14 20:20 WBC 10.0 RBC 3.83 L Hgb 10.0 L Hct 29.0 L MCV 76 L MCH 26.1 L MCHC 34.4 RDW 14.2 H Plt Count 101 L Seg Neutrophils % 81.6 H VBG pH 7.38 VBG pCO2 52.1 VBG HCO3 30.4 VBG Base Excess 3.9 Sodium 130.2 L Potassium 3.4 L Chloride 91 L Carbon Dioxide 30 Anion Gap 9 BUN 17 Creatinine 0.64 Est GFR ( Amer) > 60 Glucose 100 Lactic Acid Calcium 7.5 L Total Bilirubin 0.9 AST 109 H Alkaline Phosphatase 226 H Total Protein 6.4 Albumin 2.4 L 01/22/20 01/22/20 01/23/20 20:20 22:35 03:30 WBC RBC Hgb Hct MCV MCH MCHC RDW Plt Count Seg Neutrophils % VBG pH VBG pCO2 VBG HCO3 VBG Base Excess Sodium Potassium Chloride Carbon Dioxide Anion Gap BUN Creatinine Est GFR ( Amer) Glucose Lactic Acid 0.8 1.5 1.4 Calcium Total Bilirubin AST Alkaline Phosphatase Total Protein Albumin 01/23/20 01/23/20 03:30 03:30 WBC 8.8 RBC 3.80 L Hgb 9.9 L Hct 28.6 L MCV 75 L MCH 26.1 L MCHC 34.6 RDW 14.0 Plt Count 94 L Seg Neutrophils % 83.8 H VBG pH VBG pCO2 VBG HCO3 VBG Base Excess Sodium 132.8 L Potassium 3.5 L Chloride 99 Carbon Dioxide 28 Anion Gap 6 BUN 14 Creatinine 0.51 L Est GFR ( Amer) > 60 Glucose 117 H Lactic Acid Calcium 7.5 L Total Bilirubin 0.6 AST 73 H Alkaline Phosphatase 198 H Total Protein 6.1 L Albumin 2.2 L 01/22/20 22:35 Blood Blood Culture (PCR) - Final Staphylococcus Aureus 01/22/20 20:20 Blood Blood Culture (PCR) - Final Staphylococcus Aureus 01/22/20 18:14 Troponin I < 0.012 Impressions: Chest X-Ray 01/22/20 16:26 IMPRESSION: Multicentric opacification the lungs. Likely multicentric pneumonia. Recommend follow-up after treatment. Chest CT 01/22/20 19:42 IMPRESSION: 1. Multiple bilateral cavitary nodules throughout both lungs with the largest measuring 4.7 cm and the left lower lobe. This may represent disseminated bacterial or tuberculous infection, immunologic sequela, or neoplastic disease. 2. No urinary stones or hydronephrosis. Abdomen/Pelvis CT 01/22/20 19:43 IMPRESSION: 1. Multiple bilateral cavitary nodules throughout both lungs with the largest measuring 4.7 cm and the left lower lobe. This may represent disseminated bacterial or tuberculous infection, immunologic sequela, or neoplastic disease. 2. No urinary stones or hydronephrosis. Shoulder X-Ray 01/23/20 09:00 IMPRESSION: No acute findings in the shoulder. Numerous right-sided pulmonary nodules. Assessment and Plan - Diagnosis (1) Infectious endocarditis Qualifiers: Infective endocarditis organism: bacterial Chronicity: acute Qualified Code(s): I33.0 - Acute and subacute infective endocarditis Is this a current diagnosis for this admission?: Yes Plan: History of IVDU Meets modified Adam criteria with 2 major - 01/22/2020 positive blood culture MRSA x2. - Echocardiogram normal for tricuspid valve vegetation measuring 3.12 cm x 1.9 cm with mild to moderate tricuspid regurg. ID consulted, appreciate recommendations notes reviewed case discussed. - Continue vancomycin at least 4 weeks. (Therapy initiated 01/23/2020) - Target trough 15. - Consider Daptomycin if RICHARD >1 (2) Bacteremia due to Staphylococcus aureus Is this a current diagnosis for this admission?: Yes Plan: 01/22/2020 positive blood culture MRSA x2. Cnt vanc as above (3) Right shoulder pain Qualifiers: Chronicity: acute Qualified Code(s): M25.511 - Pain in right shoulder Is this a current diagnosis for this admission?: Yes Plan: Initial c/o on presentation R shoulder pain Without deformity or swelling Limited ROM on exam secondary to pain R upper extremity MRI pending - R/o osteomylitis given hx IVDU, endocarditis, septic pulmonary emboli (4) Cavitary pneumonia Is this a current diagnosis for this admission?: Yes Plan: ID consulted, appreciate recommendations, note reviewed, case discussed. 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 Blood cultures positive MRSA with history of IV drug abuse. Continue with vancomycin as above. (5) Suspected tuberculosis Is this a current diagnosis for this admission?: Yes Plan: Tuberculosis less likely due to findings discussed above. AFB culture and smear pending TB Gold pending Otherwise no further TB workup indicated at this time (6) Malaise and fatigue Is this a current diagnosis for this admission?: Yes Plan: Likely secondary to infective endocarditis. Treat as above. (7) Hypokalemia Is this a current diagnosis for this admission?: Yes Plan: Serum potassium on presentation was 3.4 Tx'd with 60 meq potassium PO Continue monitoring serum electrolytes (8) Transaminitis Is this a current diagnosis for this admission?: Yes Plan: Patient has elevated enzymes: AST/ALT/alk phos => 109/82/226 Hepatitis panel pending (9) Hypoalbuminemia Is this a current diagnosis for this admission?: Yes (10) IVDU (intravenous drug user) Is this a current diagnosis for this admission?: Yes Plan: History of IV drug use most recently used 01/13. Likely cause of tricuspid infective endocarditis, positive MRSA blood cultures. (11) Opioid dependence Qualifiers: Substance use status: uncomplicated Qualified Code(s): F11.20 - Opioid dependence, uncomplicated Is this a current diagnosis for this admission?: Yes Plan: Historically treated with methadone, more recently Subutex 10mg SL daily. - Cnt Subutex therapy (12) Tobacco abuse Is this a current diagnosis for this admission?: Yes Plan: Smokes 1 pack/day. Nicotine patches provided daily. Educated and encouraged patient tobacco cessation. (13) Suspected COVID-19 virus infection Is this a current diagnosis for this admission?: Yes Plan: Less likely given laboratory findings. COVID pending. Remain under isolation precautions - Time Time Spent with patient: 35 or more minutes Smoking Cessation Education: 3 to 10 minutes Medications reviewed and adjusted accordingly: Yes Anticipated Discharge Disposition: Home, Self Care Anticipated Discharge Timeframe: At least 4 week abx therapy
[2020-01-23] MEDS: BUPRENORPHINE HCL 2 MG SUBLINGUAL TABLET SL SCH (17:49)
[2020-01-23] MEDS ORDERED: LEVOFLOXACIN 750 MG/D5W RTU 750 MG/150 ML RTUPB IV SCH (22:00)
--- NOTE | 2020-01-23 22:27 | RADIOLOGY REPORT (SQ) ---
Skull series x-ray three views on 01/23/2020 at 10:04 PM Clinical indications: Evaluate for foreign body pre-MRI COMPARISON: CT head from 09/09/2010 FINDINGS: There is small round radiopaque foreign body lateral to the left inferior orbit. In correlation with the CT this BB is along the superior aspect of the left zygomatic arch. This is close enough to the left eye that this should likely be surgically removed prior to MRI out of an abundance of precautions. No other radiopaque foreign body is noted. There are no fractures. IMPRESSION: Radiopaque foreign body in the left face as above.
[2020-01-24] MEDS: ACETAMINOPHEN 325 MG TABLET PO PRN ×3 (04:59→20:32)
[2020-01-24] MEDS: VANCOMYCIN HCL 1,250 MG in DEXTROSE 5%-WATER 250 ML IV SCH ×3 (04:59→21:07)
[2020-01-24 05:38] LABS: HEPATITS B SURFACE ANTIGEN Negative (Negative)
[2020-01-24] MEDS ORDERED: LEVOFLOXACIN 750 MG/D5W RTU 750 MG/150 ML RTUPB IV SCH (06:00)
[2020-01-24 07:19] LABS: HEPATITIS C VIRUS ANTIBODY 0.2 s/co ratio (0.0-0.9)
[2020-01-24] MEDS ORDERED: POTASSIUM CHLORIDE 10 MEQ TABLET.ER PO ONE (07:52)
[2020-01-24] MEDS ORDERED: INFLUENZA QUAD (6MOS+) 2020-21 VAC 0.5 ML SYR IM ONE (08:00)
[2020-01-24] MEDS: ENOXAPARIN SODIUM INJ 40 MG/0.4 ML DISP.SYRIN SUBCUT SCH (09:20)
[2020-01-24] MEDS: BUPRENORPHINE HCL 2 MG SUBLINGUAL TABLET SL SCH (10:22)
[2020-01-24] MEDS: FAMOTIDINE 20 MG TABLET PO SCH ×2 (10:23→21:05)
[2020-01-24] MEDS: NICOTINE 21 MG/24 HR PATCH.TD24 TD SCH (10:23)
[2020-01-24 12:59] LABS: HEMATOCRIT 29.9 % (37.9-51.0); MEAN CORPUSCULAR HEMOGLOBIN 25.4 pg (27.0-33.4); MEAN CORPUSCULAR HGB CONC 33.4 g/dL (32.0-36.0); MEAN CORPUSCULAR VOLUME 76 fl (80-97); PLATELET COUNT 119 10^3/uL (150-450); RED BLOOD COUNT 3.94 10^6/uL (4.35-5.55); RED CELL DISTRIBUTION WIDTH 14.2 % (11.5-14.0); WHITE BLOOD COUNT 14.3 10^3/uL (4.0-10.5)
[2020-01-24 13:06] LABS: ANION GAP 8 (5-19); BLOOD UREA NITROGEN 20 mg/dL (7-20); CALCIUM 7.8 mg/dL (8.4-10.2); CARBON DIOXIDE 29 mmol/L (22-30); CHLORIDE 96 mmol/L (98-107); GLUCOSE 117 mg/dL (75-110)
[2020-01-24] MEDS ORDERED: NORMAL SALINE 1000 ML 1,000 ML IV ONE (13:53)
[2020-01-24] MEDS: METHADONE HCL 10 MG TABLET PO SCH ×3 (13:58→23:31)
[2020-01-24 15:25] LABS: VANCOMYCIN,TROUGH 16.2 ug/mL (5.0-20.0)
--- NOTE | 2020-01-24 19:18 | PDOC PROGRESS REPORT ---
Subjective Progress Note for:: 01/24/20 Subjective:: Patient is seen on morning rounds. He reports right shoulder pain and back pain. Rates pain 5/5. Pain exacerbated with movement. Pain so significant he is unable to move his right shoulder. Patient tells me that he had an appointment to change subutex rx to methadone this past Sunday (01/20/2020) but was unable to attend due to feeling ill. He tells me the nurse has the providers name and contact number and requests I contact her and change his suboxone to methadone. Historically on 50mg methadone daily. Reports symptoms of withdrawal including full body aches, restlessness, and diaphoresis. Additionally reports multiple episodes of hemoptysis. Otherwise denies chest pain, abdominal pain, NVD, or constipation. Reason For Visit: PNEUMONIA,RULE OUT TB,RIGHT SHOULDER PAIN Physical Exam Vital Signs: Temp Pulse Resp BP Pulse Ox 100.7 F H 96 26 H 130/76 H 94 01/24/20 12:00 01/24/20 12:00 01/24/20 12:00 01/24/20 12:00 01/24/20 12:00 Intake & Output 01/23/20 01/24/20 01/25/20 06:59 06:59 06:59 Intake Total 2399 2990 1510 Output Total 200 925 425 Balance 2199 2065 1085 Weight 74.8 kg 74.8 kg Additional comments: General appearance: PRESENT: well-developed, in moderate distress/pain. Without respiratory distress. Acutely ill. Head exam: PRESENT: atraumatic, normocephalic Eye exam: PRESENT: conjunctiva pink, EOMI, PERRLA. ABSENT: scleral icterus Mouth exam: PRESENT: dry mucosa, tongue midline Teeth exam: PRESENT: dental caries, poor dentation with multiple teeth missing Neck exam: PRESENT: full ROM. ABSENT: JVD, tenderness Respiratory exam: PRESENT: clear to auscultation jany, symmetrical, unlabored. ABSENT: chest wall tenderness, tachypnea, wheezes Cardiovascular exam: PRESENT: RRR, +S1, +S2. ABSENT: diastolic murmur, systolic murmur Pulses: PRESENT: normal radial pulses GI/Abdominal exam: PRESENT: normal bowel sounds, soft. ABSENT: firm, tenderness Extremities exam: PRESENT: full ROM. ABSENT: clubbing, tenderness Musculoskeletal exam: PRESENT: ambulatory, full ROM, tenderness - Right shoulder pain and tenderness with movement. No bruising noted. Pt unable to complete active ROM. Reports pain with passive ROM. ABSENT: deformity, dislocation Back exam: Paraspinal tenderness to palpation. No spinal process TTP. Decreased ROM due to pain. Full ROM all extremities with full strength against resistance. Patient guards all movements secondary to pain. Neurological exam: PRESENT: alert, awake, oriented to person, oriented to place, oriented to time, oriented to situation, CN II-XII grossly intact. ABSENT: altered Psychiatric exam: PRESENT: agitated, cursing and crying during exam Focused psych exam: PRESENT: restlessness Skin exam: PRESENT: intact, warm Results Laboratory Results: 01/24/20 10:05 01/24/20 10:05 01/24/20 01/24/20 01/24/20 10:05 10:05 10:05 WBC 14.3 H RBC 3.94 L Hgb 10.0 L Hct 29.9 L MCV 76 L MCH 25.4 L MCHC 33.4 RDW 14.2 H Plt Count 119 L Sodium Potassium Chloride Carbon Dioxide Anion Gap BUN Creatinine 0.74 Est GFR ( Amer) > 60 Glucose Calcium Magnesium 2.2 01/24/20 10:05 WBC RBC Hgb Hct MCV MCH MCHC RDW Plt Count Sodium 133.2 L Potassium 4.0 Chloride 96 L Carbon Dioxide 29 Anion Gap 8 BUN 20 Creatinine 0.75 Est GFR ( Amer) > 60 Glucose 117 H Calcium 7.8 L Magnesium 01/23/20 17:33 Blood Blood Culture (PCR) - Final Staphylococcus Aureus 01/23/20 17:56 Blood Blood Culture (PCR) - Final Staphylococcus Aureus 01/22/20 17:10 Throat Throat Culture - Final NORMAL ALEX 01/22/20 20:20 Blood Blood Culture (PCR) - Final Staphylococcus Aureus 01/22/20 22:35 Blood Blood Culture (PCR) - Final Staphylococcus Aureus 01/22/20 18:14 Troponin I < 0.012 Impressions: Chest X-Ray 01/22/20 16:26 IMPRESSION: Multicentric opacification the lungs. Likely multicentric pneumonia. Recommend follow-up after treatment. Chest CT 01/22/20 19:42 IMPRESSION: 1. Multiple bilateral cavitary nodules throughout both lungs with the largest measuring 4.7 cm and the left lower lobe. This may represent disseminated bacterial or tuberculous infection, immunologic sequela, or neoplastic disease. 2. No urinary stones or hydronephrosis. Abdomen/Pelvis CT 01/22/20 19:43 IMPRESSION: 1. Multiple bilateral cavitary nodules throughout both lungs with the largest measuring 4.7 cm and the left lower lobe. This may represent disseminated bacterial or tuberculous infection, immunologic sequela, or neoplastic disease. 2. No urinary stones or hydronephrosis. Skull X-Ray 01/23/20 00:00 IMPRESSION: Radiopaque foreign body in the left face as above. Shoulder X-Ray 01/23/20 09:00 IMPRESSION: No acute findings in the shoulder. Numerous right-sided pulmonary nodules. Assessment and Plan - Diagnosis (1) Infectious endocarditis Qualifiers: Infective endocarditis organism: bacterial Chronicity: acute Qualified Code(s): I33.0 - Acute and subacute infective endocarditis Is this a current diagnosis for this admission?: Yes Plan: History of IVDU Meets modified Adam criteria with 2 major - 01/22/2020 positive blood culture MRSA x2. - Echocardiogram normal for tricuspid valve vegetation measuring 3.12 cm x 1.9 cm with mild to moderate tricuspid regurg. ID consulted, appreciate recommendations notes reviewed case discussed. - Continue vancomycin at least 4 weeks. (Therapy initiated 01/23/2020) - Target trough 15. - Consider Daptomycin if RICHARD >1 - Daily BMP for monitoring (2) Bacteremia due to Staphylococcus aureus Is this a current diagnosis for this admission?: Yes Plan: 01/22/2020 positive blood culture MRSA x2. 01/23/2020 positive blood culture MRSA x2. 01/24/2020 BC pending. Cnt vanc as above (3) Right shoulder pain Qualifiers: Chronicity: acute Qualified Code(s): M25.511 - Pain in right shoulder Is this a current diagnosis for this admission?: Yes Plan: Initial c/o on presentation R shoulder pain Without deformity or swelling Limited ROM on exam secondary to pain Unable to obtain MRI (BB in skull) CT RUE with contrast with understanding that imaging will provide limited information - R/o osteomylitis given hx IVDU, endocarditis, septic pulmonary emboli (4) Back pain Qualifiers: Back pain location: low back pain Chronicity: acute Back pain laterality: bilateral Sciatica presence: without sciatica Qualified Code(s): M54.5 - Low back pain Is this a current diagnosis for this admission?: Yes Plan: Lumbar and thoracic CT for evaluation as above Resulting pending. (5) Cavitary pneumonia Is this a current diagnosis for this admission?: Yes Plan: ID consulted, appreciate recommendations, note reviewed, case discussed. 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 Blood cultures positive MRSA with history of IV drug abuse. Continue with vancomycin as above. (6) Suspected tuberculosis Is this a current diagnosis for this admission?: Yes Plan: Tuberculosis less likely due to findings discussed above. AFB culture and smear pending TB Gold pending Otherwise no further TB workup indicated at this time (7) Malaise and fatigue Is this a current diagnosis for this admission?: Yes Plan: Likely secondary to infective endocarditis. Treat as above. (8) IVDU (intravenous drug user) Is this a current diagnosis for this admission?: Yes Plan: History of IV drug use most recently used 01/13. Likely cause of tricuspid infective endocarditis, positive MRSA blood cultures. (9) Opioid dependence Qualifiers: Substance use status: uncomplicated Qualified Code(s): F11.20 - Opioid dependence, uncomplicated Is this a current diagnosis for this admission?: Yes Plan: Historically treated with methadone, more recently Subutex 10mg SL daily. Discontinued Suboxone. Initiate Methadone 20gm PO q6. - Initiate bowel regimen to prevent constipation - Discussed risk of QT prolongation with pt. He is aware and understanding of risk. Patient and myself both agree that benefit > risk. Baseline EKG 01/21 rev iewed. QTc 468. Repeat EKG tomorrow, if stable repeat EKG once weekly. (10) Opioid withdrawal Is this a current diagnosis for this admission?: Yes Plan: Treatment as above. Monitor. (11) Hypokalemia Is this a current diagnosis for this admission?: Yes Plan: Resolved. Monitor daily electrolytes. (12) Transaminitis Is this a current diagnosis for this admission?: Yes Plan: Patient has elevated enzymes: AST/ALT/alk phos => 109/82/226 Hepatitis panel negative. (13) Hypoalbuminemia Is this a current diagnosis for this admission?: Yes (14) Tobacco abuse Is this a current diagnosis for this admission?: Yes Plan: Smokes 1 pack/day. Nicotine patches provided daily. Educated and encouraged patient tobacco cessation. (15) Suspected COVID-19 virus infection Is this a current diagnosis for this admission?: Yes Plan: Less likely given laboratory findings. COVID pending. Remain under isolation precautions - Time Time Spent with patient: 35 or more minutes Smoking Cessation Education: 3 to 10 minutes Medications reviewed and adjusted accordingly: Yes Anticipated Discharge Disposition: Home, Self Care Anticipated Discharge Timeframe: After 4-6 weeks of abx
[2020-01-24] MEDS: NORMAL SALINE 1000 ML 1,000 ML IV PRN (20:30)
--- NOTE | 2020-01-25 02:54 | RADIOLOGY REPORT (SQ) ---
EXAM: CT Lumbar Spine Without Intravenous Contrast EXAM DATE/TIME: 01/25/2020 00:00 CLINICAL HISTORY: The patient is 34 years old and is Male; r/o osteo hx endocarditis back pain TECHNIQUE: Axial computed tomography images of the lumbar spine without intravenous contrast. Sagittal and coronal reformatted images were created and reviewed. This CT exam was performed using one or more of the following dose reduction techniques: automated exposure control, adjustment of the mA and/or kV according to patient size, and/or use of iterative reconstruction technique. COMPARISON: No relevant prior studies available. FINDINGS: VERTEBRAE: Schmorl's nodes visualized at several levels. No acute fracture. Vertebral body alignment is well-maintained. There is no CT evidence of osteomyelitis or discitis. DISCS/SPINAL CANAL/NEURAL FORAMINA: There is mild intervertebral disc height loss and posterior osteophytosis at L5-S1. There is also suggestion of a small broad-based posterior disc bulge at this level, with mild spinal canal narrowing and moderate to severe bilateral neural foraminal narrowing. No significant spinal canal or neural foraminal stenosis appreciated at the remaining levels. Remaining intervertebral disc heights are well-maintained. SOFT TISSUES: No acute findings appreciated in the paravertebral soft tissues. PLEURAL SPACE: Small left pleural effusion noted. KIDNEYS AND URETERS: Small hypodense lesion in the upper pole of the left kidney is suggestive of a cyst. There is nonspecific bilateral perinephric stranding. IMPRESSION: 1. No acute findings visualized in the lumbar spine. No CT evidence of osteomyelitis or discitis. 2. Degenerative changes at L5-S1 with suggestion of mild spinal canal narrowing and moderate to severe bilateral neural foraminal narrowing.
--- NOTE | 2020-01-25 03:05 | RADIOLOGY REPORT (SQ) ---
EXAM: CT Thoracic Spine Without Intravenous Contrast EXAM DATE/TIME: 01/25/2020 1:12 AM CLINICAL HISTORY: The patient is 34 years old and is Male; r/o osteo hx endocarditis back pain TECHNIQUE: Axial computed tomography images of the thoracic spine without intravenous contrast. Sagittal and coronal reformatted images were created and reviewed. This CT exam was performed using one or more of the following dose reduction techniques: automated exposure control, adjustment of the mA and/or kV according to patient size, and/or use of iterative reconstruction technique. COMPARISON: CT chest from 01/22/2020 FINDINGS: VERTEBRAE: Schmorl's nodes visualized at several levels. No acute fractures visualized. Vertebral body alignment is well-maintained. No CT evidence of osteomyelitis. DISCS/SPINAL CANAL/NEURAL FORAMINA: Intervertebral disk heights are well-maintained. There is no CT evidence of discitis. No significant spinal canal stenosis appreciated. SOFT TISSUES: No acute findings visualized in the paravertebral soft tissues. PLEURAL SPACE: Cavitary pulmonary nodules again noted bilaterally, with small bilateral pleural effusions. SPLEEN: There is a partially visualized hypodense lesion in the posteromedial aspect of the spleen, measuring 3.2 cm. This has density of 20 Hounsfield units and is not significantly changed compared to the prior exam. IMPRESSION: 1. No acute findings visualized in the thoracic spine. 2. Hypodense lesion in the spleen which is nonspecific on this exam. Given the history of endocarditis, splenic abscess cannot be excluded. If indicated, contrasted CT could be performed for further evaluation.
--- NOTE | 2020-01-25 03:13 | RADIOLOGY REPORT (SQ) ---
EXAM: CT Right Upper Extremity With Intravenous Contrast EXAM DATE/TIME: 01/25/2020 1:28 AM CLINICAL HISTORY: The patient is 34 years old and is Male; r/o osteo hx endocarditis rt shoulder pain TECHNIQUE: Axial computed tomography images of the right upper extremity with intravenous contrast. Sagittal and coronal reformatted images were created and reviewed. This CT exam was performed using one or more of the following dose reduction techniques: automated exposure control, adjustment of the mA and/or kV according to patient size, and/or use of iterative reconstruction technique. COMPARISON: CT chest from 01/22/2020 FINDINGS: BONES/JOINTS: Mild degenerative change at the acromioclavicular joint. No CT evidence of osteomyelitis. No acute fracture or dislocation. SOFT TISSUES: No significant inflammatory changes appreciated within the soft tissues about the shoulder. No obvious abscess visualized. Gynecomastia is noted on the right. PLEURAL SPACE: Multiple cavitary nodules again visualized in the right lung. Compared to the prior study, there is interval worsening of areas of consolidation in the right lower lobe. There is a small right pleural effusion. IMPRESSION: 1. No acute findings visualized at the right shoulder. 2. Multiple cavitary nodules again visualized in the right lung. Compared to the prior study, there is interval worsening of areas of consolidation in the right lower lobe. There is also a small right pleural effusion.
[2020-01-25] MEDS: VANCOMYCIN HCL 1,250 MG in DEXTROSE 5%-WATER 250 ML IV SCH (05:23)
[2020-01-25] MEDS: METHADONE HCL 10 MG TABLET PO SCH ×4 (05:23→23:39)
[2020-01-25] MEDS: NORMAL SALINE 1000 ML 1,000 ML IV PRN ×2 (07:07→22:47)
[2020-01-25 07:30] LABS: HEMATOCRIT 25.8 % (37.9-51.0); HEMOGLOBIN 8.8 g/dL (13.5-17.0); MEAN CORPUSCULAR HEMOGLOBIN 25.6 pg (27.0-33.4); MEAN CORPUSCULAR HGB CONC 34.1 g/dL (32.0-36.0); MEAN CORPUSCULAR VOLUME 75 fl (80-97); PLATELET COUNT 148 10^3/uL (150-450); RED BLOOD COUNT 3.43 10^6/uL (4.35-5.55); RED CELL DISTRIBUTION WIDTH 14.6 % (11.5-14.0); WHITE BLOOD COUNT 15.6 10^3/uL (4.0-10.5)
[2020-01-25 07:50] LABS: ANION GAP 8 (5-19); BLOOD UREA NITROGEN 30 mg/dL (7-20); CALCIUM 7.3 mg/dL (8.4-10.2); CARBON DIOXIDE 25 mmol/L (22-30); CHLORIDE 98 mmol/L (98-107); GLUCOSE 90 mg/dL (75-110); POTASSIUM 4.3 mmol/L (3.6-5.0)
[2020-01-25] MEDS ORDERED: NORMAL SALINE 1000 ML 1,000 ML IV PRN (08:17)
[2020-01-25] MEDS: ACETAMINOPHEN 325 MG TABLET PO PRN ×2 (08:38→18:46)
[2020-01-25] MEDS: SENNOSIDES/DOCUSATE 8.6-50 MG 1 EACH TABLET PO SCH (11:06)
[2020-01-25] MEDS: FAMOTIDINE 20 MG TABLET PO SCH (11:06)
[2020-01-25] MEDS: NICOTINE 21 MG/24 HR PATCH.TD24 TD SCH (11:07)
[2020-01-25] MEDS: POLYETHYLENE GLYCOL 3350 POWDER 17 GM/1 PACKET PO SCH (11:07)
[2020-01-25] MEDS: HEPARIN SOD (PORCINE) 5,000 UNIT/ML 1 ML VIAL SUBCUT SCH ×3 (14:29→22:46)
[2020-01-25] MEDS ORDERED: NORMAL SALINE 1000 ML 1,000 ML IV ONE (16:01)
[2020-01-25 16:57] LABS: AMORPHOUS SEDIMENT,URINE TRACE /HPF; APPEARANCE,URINE CLOUDY; BILIRUBIN,URINE NEGATIVE (NEGATIVE); COLOR,URINE AMBER; GLUCOSE, URINE NEGATIVE (NEGATIVE); KETONES,URINE NEGATIVE (NEGATIVE); LEUKOCYTE ESTERASE,URINE NEGATIVE (NEGATIVE); NITRITE,URINE NEGATIVE (NEGATIVE); PROTEIN,URINE 30 mg/dL (NEGATIVE); URINE SPECIFIC GRAVITY 1.026; UROBILINOGEN,URINE NEGATIVE mg/dL (<2.0)
[2020-01-25] MEDS: LIDOCAINE 5% (700 MG) TRANSDERMAL ADH..PATCH TP SCH (17:22)
[2020-01-25] MEDS ORDERED: VANCOMYCIN HCL 1,250 MG in DEXTROSE 5%-WATER 250 ML IV SCH ×2 (18:00→22:00)
[2020-01-25 18:20] LABS: URINE CREATININE 110.1 mg/dL (24-392)
[2020-01-25 18:22] LABS: URINE SODIUM < 5 mmol/L (30-90)
[2020-01-25] MEDS ORDERED: NORMAL SALINE 1000 ML 2,000 ML IV ONE (18:34)
--- NOTE | 2020-01-25 19:09 | PDOC PROGRESS REPORT ---
Subjective Progress Note for:: 01/25/20 Subjective:: Patient resting in bed. Reports relief of withdrawal symptoms with methadone. Continues to have back pain but not as severe. Chest pain, cough and shortness of breath persist though improved. Denies hemoptysis. Last bowel movement x3 days ago. Requests suppository for treatment. Producing urine frequently. No concerns per nursing. Reason For Visit: PNEUMONIA,RULE OUT TB,RIGHT SHOULDER PAIN Physical Exam Vital Signs: Temp Pulse Resp BP Pulse Ox 98.3 F 98 20 120/66 98 01/25/20 16:00 01/25/20 16:00 01/25/20 16:00 01/25/20 16:00 01/25/20 16:00 Intake & Output 01/24/20 01/25/20 01/26/20 06:59 06:59 06:59 Intake Total 2990 3676 1225 Output Total 925 1150 175 Balance 2065 2526 1050 Weight 74.8 kg 74.8 kg Additional comments: General appearance: PRESENT: well-developed, in moderate distress/pain. Without respiratory distress. Acutely ill. Head exam: PRESENT: atraumatic, normocephalic Eye exam: PRESENT: conjunctiva pink, EOMI, PERRLA. ABSENT: scleral icterus Mouth exam: PRESENT: dry mucosa, tongue midline Teeth exam: PRESENT: dental caries, poor dentation with multiple teeth missing Neck exam: PRESENT: full ROM. ABSENT: JVD, tenderness Respiratory exam: PRESENT: clear to auscultation jany, symmetrical, unlabored. ABSENT: chest wall tenderness, tachypnea, wheezes Cardiovascular exam: PRESENT: RRR, +S1, +S2. ABSENT: diastolic murmur, systolic murmur Pulses: PRESENT: normal radial pulses GI/Abdominal exam: PRESENT: normal bowel sounds, soft. ABSENT: firm, tenderness Extremities exam: PRESENT: full ROM. ABSENT: clubbing, tenderness Musculoskeletal exam: PRESENT: ambulatory, full ROM, tenderness - Right shoulder pain and tenderness with movement. No bruising noted. Pt able to complete passive and active ROM with pain, though less than previous. ABSENT: deformity, dislocation Back exam: Paraspinal tenderness to palpation. No spinal process TTP. Improved ROM. No deformity noted. No warmth. Full ROM all extremities with full strength against resistance. Patient guards all movements secondary to pain. Neurological exam: PRESENT: alert, awake, oriented to person, oriented to place, oriented to time, oriented to situation, CN II-XII grossly intact. ABSENT: altered Psychiatric exam: PRESENT: agitated Focused psych exam: PRESENT: restlessness Skin exam: PRESENT: intact, warm Results Laboratory Results: 01/25/20 06:45 01/25/20 06:45 01/25/20 01/25/20 01/25/20 06:45 06:45 09:27 WBC 15.6 H RBC 3.43 L Hgb 8.8 L Hct 25.8 L MCV 75 L MCH 25.6 L MCHC 34.1 RDW 14.6 H Plt Count 148 L Sodium 131.0 L Potassium 4.3 Chloride 98 Carbon Dioxide 25 Anion Gap 8 BUN 30 H Creatinine 1.27 H Est GFR ( Amer) > 60 Glucose 90 Lactic Acid 0.9 Calcium 7.3 L Magnesium 2.1 Urine Color Urine Appearance Urine pH Ur Specific [place] Urine Protein Urine Glucose (UA) Urine Ketones Urine Blood Urine Nitrite Ur Leukocyte Esterase Urine WBC (Auto) 01/25/20 16:34 WBC RBC Hgb Hct MCV MCH MCHC RDW Plt Count Sodium Potassium Chloride Carbon Dioxide Anion Gap BUN Creatinine Est GFR ( Amer) Glucose Lactic Acid Calcium Magnesium Urine Color AKIL Urine Appearance CLOUDY Urine pH 5.0 Ur Specific [place] 1.026 Urine Protein 30 H Urine Glucose (UA) NEGATIVE Urine Ketones NEGATIVE Urine Blood SMALL H Urine Nitrite NEGATIVE Ur Leukocyte Esterase NEGATIVE Urine WBC (Auto) 1 01/22/20 20:20 Blood Blood Culture (PCR) - Final Staphylococcus Aureus 01/22/20 22:35 Blood Blood Culture (PCR) - Final Staphylococcus Aureus 01/22/20 22:35 Blood Blood Culture - Final Staphylococcus Aureus 01/23/20 17:56 Blood Blood Culture (PCR) - Final Staphylococcus Aureus 01/23/20 17:33 Blood Blood Culture (PCR) - Final Staphylococcus Aureus 01/24/20 14:35 Blood Blood Culture (PCR) - Final Staphylococcus Aureus 01/24/20 14:45 Blood Blood Culture (PCR) - Final Staphylococcus Aureus 01/22/20 18:14 Troponin I < 0.012 Impressions: Chest X-Ray 01/22/20 16:26 IMPRESSION: Multicentric opacification the lungs. Likely multicentric pneumonia. Recommend follow-up after treatment. Chest CT 01/22/20 19:42 IMPRESSION: 1. Multiple bilateral cavitary nodules throughout both lungs with the largest measuring 4.7 cm and the left lower lobe. This may represent disseminated bacterial or tuberculous infection, immunologic sequela, or neoplastic disease. 2. No urinary stones or hydronephrosis. Abdomen/Pelvis CT 01/22/20 19:43 IMPRESSION: 1. Multiple bilateral cavitary nodules throughout both lungs with the largest measuring 4.7 cm and the left lower lobe. This may represent disseminated bacterial or tuberculous infection, immunologic sequela, or neoplastic disease. 2. No urinary stones or hydronephrosis. Skull X-Ray 01/23/20 00:00 IMPRESSION: Radiopaque foreign body in the left face as above. Shoulder X-Ray 01/23/20 09:00 IMPRESSION: No acute findings in the shoulder. Numerous right-sided pulmonary nodules. Lumbar Spine CT 01/25/20 00:00 IMPRESSION: 1. No acute findings visualized in the lumbar spine. No CT evidence of osteomyelitis or discitis. 2. Degenerative changes at L5-S1 with suggestion of mild spinal canal narrowing and moderate to severe bilateral neural foraminal narrowing. Thoracic Spine CT 01/25/20 00:00 IMPRESSION: 1. No acute findings visualized in the thoracic spine. 2. Hypodense lesion in the spleen which is nonspecific on this exam. Given the history of endocarditis, splenic abscess cannot be excluded. If indicated, contrasted CT could be performed for further evaluation. Upper Extremity CT 01/25/20 00:00 IMPRESSION: 1. No acute findings visualized at the right shoulder. 2. Multiple cavitary nodules again visualized in the right lung. Compared to the prior study, there is interval worsening of areas of consolidation in the right lower lobe. There is also a small right pleural effusion. Assessment and Plan - Diagnosis (1) Infectious endocarditis Qualifiers: Infective endocarditis organism: bacterial Chronicity: acute Qualified Code(s): I33.0 - Acute and subacute infective endocarditis Is this a current diagnosis for this admission?: Yes Plan: History of IVDU Meets modified Adam criteria with 2 major - 01/22/2020 positive blood culture MRSA x2. - Echocardiogram normal for tricuspid valve vegetation measuring 3.12 cm x 1.9 cm with mild to moderate tricuspid regurg. Pt with persistent bactermia and climbing WBC count regardless of current vanc therapy (1250mg q8hr) Case discussed with Dr. Posadas, infectious disease. - Susceptible to Vanc, with RICHARD 1 - Vanc trough 16.2, peak 44.3 - Acute onset ALANIS - Hold vanc. Repeat trough. If <20 restart vanc at current dose of 1250mg, change frequency to q12hr. - Continue vancomycin at least 4 weeks. (Therapy initiated 01/23/2020) - Monitor daily BMP. Infectious disease to place consult note tomorrow. (2) Bacteremia due to Staphylococcus aureus Is this a current diagnosis for this admission?: Yes Plan: 01/22/2020 positive blood culture MSSA x2. 01/23/2020 positive blood culture MSSA x2. 01/24/2020 positive blood culture MSSA x2 01/25/2020 culture pending (3) Acute kidney injury Is this a current diagnosis for this admission?: Yes Plan: BUN/Creatinine 17/04.. Pt continues to produce urine. Strict I&Os. Hx recent contrast and vanc therapy. Initiate and continue with aggressive IVF. - Vanc therapy as discussed above. Repeat BMP this evening. Continue daily BMP. Avoid all nephritoxic medications. (4) Right shoulder pain Qualifiers: Chronicity: acute Qualified Code(s): M25.511 - Pain in right shoulder Is this a current diagnosis for this admission?: Yes Plan: Initial c/o on presentation R shoulder pain Without deformity or swelling Limited ROM on exam secondary to pain Unable to obtain MRI (BB in skull) CT RUE without signs osteo (5) Back pain Qualifiers: Back pain location: low back pain Chronicity: acute Back pain laterality: bilateral Sciatica presence: without sciatica Qualified Code(s): M54.5 - Low back pain Is this a current diagnosis for this admission?: Yes Plan: Lumbar and thoracic CT witohut evidence osteo Lidocaine patch Tylenol KPad (6) Cavitary pneumonia Is this a current diagnosis for this admission?: Yes Plan: ID consulted, appreciate recommendations, note reviewed, case discussed. 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 Blood cultures positive MRSA with history of IV drug abuse. Continue with vancomycin as above. (7) Suspected tuberculosis Is this a current diagnosis for this admission?: Yes Plan: Tuberculosis less likely due to findings discussed above. AFB culture and smear pending TB Gold pending Otherwise no further TB workup indicated at this time (8) Malaise and fatigue Is this a current diagnosis for this admission?: Yes Plan: Improving. Likely secondary to infective endocarditis. Treat as above. (9) IVDU (intravenous drug user) Is this a current diagnosis for this admission?: Yes Plan: History of IV drug use most recently used 01/13. Likely cause of tricuspid infective endocarditis, positive MRSA blood cultures. (10) Opioid dependence Qualifiers: Substance use status: uncomplicated Qualified Code(s): F11.20 - Opioid dependence, uncomplicated Is this a current diagnosis for this admission?: Yes Plan: Historically treated with methadone, more recently Subutex 10mg SL daily. Discontinued Suboxone. Continue Methadone 20gm PO q6. - Initiate bowel regimen to prevent constipation - Discussed risk of QT prolongation with pt. He is aware and understanding of risk. Patient and myself both agree that benefit > risk. Baseline EKG 01/21 reviewed. QTc 468. Repeat EKG tomorrow, if stable repeat EKG once weekly. (11) Opioid withdrawal Is this a current diagnosis for this admission?: Yes Plan: Treatment as above. Monitor. (12) Hypokalemia Is this a current diagnosis for this admission?: Yes Plan: Resolved. Monitor daily electrolytes. (13) Transaminitis Is this a current diagnosis for this admission?: Yes Plan: Patient has elevated enzymes: AST/ALT/alk phos => 109/82/226 Hepatitis panel negative. (14) Hypoalbuminemia Is this a current diagnosis for this admission?: Yes (15) Tobacco abuse Is this a current diagnosis for this admission?: Yes Plan: Smokes 1 pack/day. Nicotine patches provided daily. Educated and encouraged patient tobacco cessation. (16) Suspected COVID-19 virus infection Is this a current diagnosis for this admission?: Yes Plan: COVID negative. - Time Time Spent with patient: 35 or more minutes Smoking Cessation Education: 3 to 10 minutes Medications reviewed and adjusted accordingly: Yes Anticipated Discharge Disposition: Home, Self Care Anticipated Discharge Timeframe: 4-6 weeks
[2020-01-25 19:21] LABS: ANION GAP 7 (5-19); BLOOD UREA NITROGEN 35 mg/dL (7-20); CARBON DIOXIDE 24 mmol/L (22-30); CHLORIDE 98 mmol/L (98-107); GLUCOSE 111 mg/dL (75-110); POTASSIUM 4.4 mmol/L (3.6-5.0)
[2020-01-25 19:26] LABS: VANCOMYCIN,TROUGH 26.2 ug/mL (5.0-20.0)
[2020-01-26] MEDS: NORMAL SALINE 1000 ML 1,000 ML IV PRN ×3 (03:26→22:39)
[2020-01-26] MEDS: ACETAMINOPHEN 325 MG TABLET PO PRN ×3 (04:15→22:34)
[2020-01-26] MEDS: METHADONE HCL 10 MG TABLET PO SCH ×4 (05:34→23:02)
[2020-01-26] MEDS: HEPARIN SOD (PORCINE) 5,000 UNIT/ML 1 ML VIAL SUBCUT SCH ×3 (05:35→22:34)
[2020-01-26 05:58] LABS: HEMATOCRIT 22.7 % (37.9-51.0); MEAN CORPUSCULAR HEMOGLOBIN 25.5 pg (27.0-33.4); MEAN CORPUSCULAR HGB CONC 33.9 g/dL (32.0-36.0); MEAN CORPUSCULAR VOLUME 75 fl (80-97); PLATELET COUNT 175 10^3/uL (150-450); RED BLOOD COUNT 3.01 10^6/uL (4.35-5.55); RED CELL DISTRIBUTION WIDTH 14.3 % (11.5-14.0); WHITE BLOOD COUNT 13.7 10^3/uL (4.0-10.5)
[2020-01-26 06:14] LABS: HEMOGLOBIN 7.7 g/dL (13.5-17.0)
[2020-01-26 06:21] LABS: ANION GAP 8 (5-19); BLOOD UREA NITROGEN 37 mg/dL (7-20); CARBON DIOXIDE 19 mmol/L (22-30); CHLORIDE 105 mmol/L (98-107); GLUCOSE 95 mg/dL (75-110); POTASSIUM 4.3 mmol/L (3.6-5.0)
[2020-01-26 09:07] LABS: ABSOLUTE RETICS # 0.023 10^6/uL (0.028-0.122); RETICULOCYTE COUNT (AUTO) 0.68 % (0.66-2.85)
[2020-01-26 09:29] LABS: VANCOMYCIN,TROUGH 14.2 ug/mL (5.0-20.0)
[2020-01-26 09:31] LABS: ALBUMIN 1.9 g/dL (3.5-5.0); ALKALINE PHOSPHATASE 217 U/L (38-126); ASPARTATE AMINO TRANSFERASE 41 U/L (17-59); BILIRUBIN,DIRECT 0.4 mg/dL (0.0-0.4); BILIRUBIN,TOTAL 0.8 mg/dL (0.2-1.3); TOTAL PROTEIN 5.8 g/dL (6.3-8.2)
[2020-01-26] MEDS: NICOTINE 21 MG/24 HR PATCH.TD24 TD SCH (09:42)
[2020-01-26 09:43] LABS: ERYTHROCYTE SEDIMENTATION RATE 67 mm/hr (0-15)
[2020-01-26] MEDS: POLYETHYLENE GLYCOL 3350 POWDER 17 GM/1 PACKET PO SCH (09:49)
[2020-01-26] MEDS: LIDOCAINE 5% (700 MG) TRANSDERMAL ADH..PATCH TP SCH (09:49)
[2020-01-26] MEDS: SENNOSIDES/DOCUSATE 8.6-50 MG 1 EACH TABLET PO SCH (09:49)
[2020-01-26] MEDS ORDERED: VANCOMYCIN HCL INJ 1000 MG VIAL IV SCH (10:00)
[2020-01-26 10:10] LABS: C-REACTIVE PROTEIN 310.4 mg/L (<10.0); IRON(TIBC) < 10.1 ug/dL (49-181)
[2020-01-26] MEDS ORDERED: CALCIUM GLUC IN NACL, ISO-OSM 1 GM/50 ML RTUPB IV ONE (10:15)
[2020-01-26] MEDS ORDERED: BISACODYL 10 MG SUPP.RECT PR PRN (10:20)
[2020-01-26 10:34] LABS: FOLATE 8.89 ng/mL (>2.76)
[2020-01-26] MEDS ORDERED: VANCOMYCIN HCL 1,250 MG in DEXTROSE 5%-WATER 250 ML IV SCH (14:00)
[2020-01-26] MEDS ORDERED: NAFCILLIN SODIUM INJ 2 GM VIAL IV SCH (17:15)
--- NOTE | 2020-01-26 17:16 | Progress Note ---
Provider Note Provider Note: [facility] ID follow-up note: Patient not examined. Chart reviewed, including previous ID consultation by my colleague Dr. Niko Posadas. Since last ID evaluation patient continues to spike low-grade temperatures and has a rising leukocytosis to 13,000 as well as an ALANIS to 1.5 after IV contrast and elevated vancomycin levels. He has had imaging of the right shoulder that has been limited as an MRI cannot be done but CT scan with contrast without significant findings aside from impressive pulmonary septic emboli and inc reasing consolidation with effusion. His blood cultures actually demonstrate MSSA after final speciation and sensitivity. Initially called as MRSA on rapid molecular, but this does not appear to be the case. Assessment/recommendations: 1. High-grade persistent MSSA bacteremia and tricuspid valve endocarditis in a patient with injection drug use. No signs of heart failure but impressive embolic burden in the lungs. 2. Diffuse joint pain most notably in the right shoulder and lower lumbar region with negative CT imaging of these areas. 3. Rising leukocytosis 4. ALANIS and elevated vancomycin levels At this juncture would discontinue vancomycin and inquire about penicillin allergy. If this allergy is remote would challenge with nafcillin 12 g/day continuous infusion. If this is described as a rash during adulthood would challenge with amoxicillin 250 mg p.o. x1 and if tolerates after 2 hours would challenge with nafcillin 12 g/day continuous infusion. If patient develops a rash on nafcillin would change to cefazolin 2 g IV every 8 hours. If this was a type I mediated hypersensitivity reaction (anaphylaxis) would recommend daptomycin 8 mg/kg IV daily after checking baseline CPK. If bacteremia is persisted on daptomycin, would need to add ceftaroline. Please obtain a CBC with differential to better describe his leukocytosis as eosinophilic AIN due to vancomycin is possible. If leukocytosis increases further would repeat CT chest to evaluate for empyema necessitans which he is at high risk for. If this is unrevealing he may end up needing a tagged WBC scan. MRI imaging c annot be done. He will need 6 weeks of IV therapy after blood cultures clear.
[2020-01-26] MEDS ORDERED: NORMAL SALINE 1000 ML 3,000 ML IV ONE (18:38)
--- NOTE | 2020-01-26 18:46 | PDOC PROGRESS REPORT ---
Subjective Date:: 01/26/20 Subjective:: Patient in bed. Continues to complain of full body aches with focused pain in the right shoulder and lower back. Continues to experience hemoptysis. Continues to produce urine though denies bowel movement. He is requesting suppository laxative. Otherwise denies fever, chills, chest pain, shortness of breath, abdominal pain, nausea vomiting diarrhea. No concerns per nursing. Reason For Visit: PNEUMONIA,RULE OUT TB,RIGHT SHOULDER PAIN Physical Exam Vital Signs: Temp Pulse Resp BP Pulse Ox 99.0 F 84 19 111/96 H 100 01/26/20 10:00 01/26/20 08:55 01/26/20 08:55 01/26/20 08:55 01/26/20 08:55 Intake & Output 01/25/20 01/26/20 01/27/20 06:59 06:59 06:59 Intake Total 3676 5425 Output Total 1150 575 Balance 2526 4850 Weight 74.8 kg 68.8 kg Additional comments: General appearance: PRESENT: well-developed, in moderate distress/pain. Without respiratory distress. Acutely ill. Head exam: PRESENT: atraumatic, normocephalic Eye exam: PRESENT: conjunctiva pink, EOMI, PERRLA. ABSENT: scleral icterus Mouth exam: PRESENT: dry mucosa, tongue midline Teeth exam: PRESENT: dental caries, poor dentation with multiple teeth missing Neck exam: PRESENT: full ROM. ABSENT: JVD, tenderness Respiratory exam: PRESENT: clear to auscultation jany, symmetrical, unlabored. ABSENT: chest wall tenderness, tachypnea, wheezes Cardiovascular exam: PRESENT: RRR, +S1, +S2. ABSENT: diastolic murmur, systolic murmur Pulses: PRESENT: normal radial pulses GI/Abdominal exam: PRESENT: normal bowel sounds, soft. ABSENT: firm, tenderness Extremities exam: PRESENT: full ROM. ABSENT: clubbing, tenderness Musculoskeletal exam: PRESENT: ambulatory, full ROM, right shoulder is TTP consistent with muscular skeletal pain. No bruising noted. Pt able to complete passive and active ROM with pain, though less than previous. ABSENT: deformity, dislocation Back exam: Full range of motion all extremities the patient limits this second milagros to full body aches. Neurological exam: PRESENT: alert, awake, oriented to person, oriented to place, oriented to time, oriented to situation, CN II-XII grossly intact. ABSENT: altered Psychiatric exam: PRESENT: agitated Focused psych exam: PRESENT: restlessness Skin exam: PRESENT: intact, warm Results Laboratory Results: 01/26/20 05:35 01/25/20 01/26/20 01/26/20 18:45 05:35 05:35 WBC 13.7 H RBC 3.01 L Hgb 7.7 L Hct 22.7 L MCV 75 L MCH 25.5 L MCHC 33.9 RDW 14.3 H Plt Count 175 Retic Count (auto) Sodium 129.2 L 132.4 L Potassium 4.4 4.3 Chloride 98 105 Carbon Dioxide 24 19 L Anion Gap 7 8 BUN 35 H 37 H Creatinine 1.60 H 1.51 H Est GFR ( Amer) 59 L > 60 Glucose 111 H 95 Calcium 7.0 L* 7.0 L* Ionized Calcium Jean Phosphorus Magnesium 2.1 Iron TIBC Ferritin Total Bilirubin AST Alkaline Phosphatase C-Reactive Protein Total Protein Albumin Vitamin B12 Folate PTH Intact Blood Type Antibody Screen 01/26/20 01/26/20 01/26/20 08:50 08:50 08:50 WBC RBC Hgb Hct MCV MCH MCHC RDW Plt Count Retic Count (auto) Sodium Potassium Chloride Carbon Dioxide Anion Gap BUN Creatinine Est GFR ( Amer) Glucose Calcium Ionized Calcium Jean 1.08 L Phosphorus Magnesium Iron < 10.1 L TIBC 138 L Ferritin 541.00 H Total Bilirubin 0.8 AST 41 Alkaline Phosphatase 217 H C-Reactive Protein 310.4 H Total Protein 5.8 L Albumin 1.9 L Vitamin B12 458.0 Folate 8.89 PTH Intact Blood Type Antibody Screen 01/26/20 01/26/20 01/26/20 08:50 08:50 08:50 WBC RBC Hgb Hct MCV MCH MCHC RDW Plt Count Retic Count (auto) 0.68 Sodium Potassium Chloride Carbon Dioxide Anion Gap BUN Creatinine Est GFR ( Amer) Glucose Calcium Ionized Calcium Jean Phosphorus 5.5 H Magnesium Iron TIBC Ferritin Total Bilirubin AST Alkaline Phosphatase C-Reactive Protein Total Protein Albumin Vitamin B12 Folate PTH Intact Blood Type A POSITIVE Antibody Screen NEGATIVE 01/26/20 13:41 WBC RBC Hgb Hct MCV MCH MCHC RDW Plt Count Retic Count (auto) Sodium Potassium Chloride Carbon Dioxide Anion Gap BUN Creatinine Est GFR ( Amer) Glucose Calcium Ionized Calcium Jean Phosphorus Magnesium Iron TIBC Ferritin Total Bilirubin AST Alkaline Phosphatase C-Reactive Protein Total Protein Albumin Vitamin B12 Folate PTH Intact 34.7 Blood Type Antibody Screen 01/22/20 20:20 Blood Blood Culture (PCR) - Final Staphylococcus Aureus 01/25/20 18:45 Blood Blood Culture (PCR) - Final Staphylococcus Aureus 01/24/20 14:35 Blood Blood Culture (PCR) - Final Staphylococcus Aureus 01/24/20 14:45 Blood Blood Culture (PCR) - Final Staphylococcus Aureus 01/23/20 17:56 Blood Blood Culture (PCR) - Final Staphylococcus Aureus 01/23/20 17:56 Blood Blood Culture - Final Staphylococcus Aureus 01/23/20 17:33 Blood Blood Culture (PCR) - Final Staphylococcus Aureus 01/23/20 17:33 Blood Blood Culture - Final Staphylococcus Aureus 01/22/20 22:35 Blood Blood Culture (PCR) - Final Staphylococcus Aureus 01/22/20 22:35 Blood Blood Culture - Final Staphylococcus Aureus 01/22/20 18:14 Troponin I < 0.012 Impressions: Chest X-Ray 01/22/20 16:26 IMPRESSION: Multicentric opacification the lungs. Likely multicentric pneumonia. Recommend follow-up after treatment. Chest CT 01/22/20 19:42 IMPRESSION: 1. Multiple bilateral cavitary nodules throughout both lungs with the largest measuring 4.7 cm and the left lower lobe. This may represent disseminated bacterial or tuberculous infection, immunologic sequela, or neoplastic disease. 2. No urinary stones or hydronephrosis. Abdomen/Pelvis CT 01/22/20 19:43 IMPRESSION: 1. Multiple bilateral cavitary nodules throughout both lungs with the largest measuring 4.7 cm and the left lower lobe. This may represent disseminated bacterial or tuberculous infection, immunologic sequela, or neoplastic disease. 2. No urinary stones or hydronephrosis. Skull X-Ray 01/23/20 00:00 IMPRESSION: Radiopaque foreign body in the left face as above. Shoulder X-Ray 01/23/20 09:00 IMPRESSION: No acute findings in the shoulder. Numerous right-sided pulmonary nodules. Lumbar Spine CT 01/25/20 00:00 IMPRESSION: 1. No acute findings visualized in the lumbar spine. No CT evidence of osteomyelitis or discitis. 2. Degenerative changes at L5-S1 with suggestion of mild spinal canal narrowing and moderate to severe bilateral neural foraminal narrowing. Thoracic Spine CT 01/25/20 00:00 IMPRESSION: 1. No acute findings visualized in the thoracic spine. 2. Hypodense lesion in the spleen which is nonspecific on this exam. Given the history of endocarditis, splenic abscess cannot be excluded. If indicated, contrasted CT could be performed for further evaluation. Upper Extremity CT 01/25/20 00:00 IMPRESSION: 1. No acute findings visualized at the right shoulder. 2. Multiple cavitary nodules again visualized in the right lung. Compared to the prior study, there is interval worsening of areas of consolidation in the right lower lobe. There is also a small right pleural effusion. Assessment and Plan - Diagnosis (1) Infectious endocarditis Qualifiers: Infective endocarditis organism: bacterial Chronicity: acute Qualified Code(s): I33.0 - Acute and subacute infective endocarditis Is this a current diagnosis for this admission?: Yes Plan: History of IVDU Meets modified Adam criteria with 2 major - Consistently positive blood MSSA cultures admission date 01/22/2020 - Echocardiogram normal for tricuspid valve vegetation measuring 3.12 cm x 1.9 cm with mild to moderate tricuspid regurg. - Evidence of multiple septic emboli lungs Received treatment with vancomycin with dosing as per pharmacy 01/22/2020 to 01/25/2020. - Stopped vanc therapy due to elvated vanc trough and onset of ALANIS Pt with persistent bactermia, low-grade fever and climbing WBC count regardless of vanc therapy (1250mg q8hr) Case discussed with Dr. Rodriguez, infectious disease. Note reviewed. - Discontinue vanc - Initiate Nafcillin 12g/day IV q4 (Date initiated 01/26/2020) - Continue therapy for 6 weeks after blood culture cleared (2) Bacteremia due to Staphylococcus aureus Is this a current diagnosis for this admission?: Yes Plan: 01/22/2020 positive blood culture MSSA x2. 01/23/2020 positive blood culture MSSA x2. 01/24/2020 positive blood culture MSSA x2 01/25/2020 culture blood culture MSSA x2 01/25 Repeat culture pending Treatment as above (3) Cavitary pneumonia Is this a current diagnosis for this admission?: Yes Plan: ID consulted, appreciate recommendations, note reviewed, case discussed. 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 Consider repeat CT chest to evaluate for empyema if leukocytosis continues to increase. If unrevealing consider tagged WBC scan. (4) Acute kidney injury Is this a current diagnosis for this admission?: Yes Plan: BUN/Creatinine 30/1.27 -> 37/1.51 Producing urine. Strict I&Os. Hx recent contrast and vanc therapy. Initiate and continue with aggressive IVF. Continue daily BMP. Avoid all nephritoxic medications. (5) Right shoulder pain Qualifiers: Chronicity: acute Qualified Code(s): M25.511 - Pain in right shoulder Is this a current diagnosis for this admission?: Yes Plan: Unable to obtain MRI (BB in skull) CT RUE without signs osteo. Consider tagged WBC. (6) Back pain Qualifiers: Back pain location: low back pain Chronicity: acute Back pain laterality: bilateral Sciatica presence: without sciatica Qualified Code(s): M54.5 - Low back pain Is this a current diagnosis for this admission?: Yes Plan: Lumbar and thoracic CT witohut evidence osteo. Lidocaine patch. Tylenol. KPad (7) Microcytic hypochromic anemia Is this a current diagnosis for this admission?: Yes Plan: Hgb downward trend since admission. HGB 7.7 morning labs. Type and screen ordered. Iron studies ordered. Transfuse if <7.0. (8) Hypovitaminosis D Is this a current diagnosis for this admission?: Yes Plan: Vitamin D <12.8. Cause of hypocalcemia 7.0. Tx Vitamin D 50,000 once weekly. (9) Hypocalcemia Is this a current diagnosis for this admission?: Yes Plan: Secondary to above. Value corrected due to low albumin = 8.4. Tx: 1gm calcium gluconate IV (10) IVDU (intravenous drug user) Is this a current diagnosis for this admission?: Yes Plan: History of IV drug use most recently used 01/13. Cause of tricuspid infective endocarditis, positive MSSA blood cultures. (11) Opioid dependence Qualifiers: Substance use status: uncomplicated Qualified Code(s): F11.20 - Opioid dependence, uncomplicated Is this a current diagnosis for this admission?: Yes Plan: Historically treated with methadone, more recently Subutex 10mg SL daily. Discontinued Suboxone. Increased methadone to 30 mg every 6 hours. - SR laxative provided for constipation. - Discussed risk of QT prolongation with pt. He is aware and understanding of risk. Patient and myself both agree that benefit > risk. Baseline EKG 01/21 reviewed. QTc 468. Repeat EKG tomorrow, if stable repeat EKG once weekly. (12) Opioid withdrawal Is this a current diagnosis for this admission?: Yes Plan: Resolved. (13) Hypokalemia Is this a current diagnosis for this admission?: Yes Plan: Resolved. Monitor daily electrolytes. (14) Transaminitis Is this a current diagnosis for this admission?: Yes Plan: Patient has elevated enzymes: AST/ALT/alk phos => 109/82/226. Hepatitis panel negative. (15) Hypoalbuminemia Is this a current diagnosis for this admission?: Yes (16) Tobacco abuse Is this a current diagnosis for this admission?: Yes (17) Malaise and fatigue Is this a current diagnosis for this admission?: Yes Plan: As above. (18) Suspected COVID-19 virus infection Is this a current diagnosis for this admission?: Yes (19) Suspected tuberculosis Is this a current diagnosis for this admission?: Yes Plan: Ruled out. No further attention needed at this time. - Time Time Spent with patient: 35 or more minutes Smoking Cessation Education: 3 to 10 minutes Medications reviewed and adjusted accordingly: Yes Anticipated Discharge Disposition: Home, Self Care Anticipated Discharge Timeframe: >4 weeks
[2020-01-26] MEDS: NAFCILLIN SODIUM 2 GM in DEXTROSE 5%-WATER 100 ML IV SCH (22:35)
[2020-01-26] MEDS: PHARMACY COMMUNICATION ORDER MC SCH (22:35)
[2020-01-27] MEDS: NAFCILLIN SODIUM 2 GM in DEXTROSE 5%-WATER 100 ML IV SCH ×6 (02:39→22:02)
[2020-01-27] MEDS: NORMAL SALINE 1000 ML 1,000 ML IV PRN ×2 (05:59→22:02)
[2020-01-27] MEDS: METHADONE HCL 10 MG TABLET PO SCH ×3 (06:00→16:59)
[2020-01-27] MEDS: HEPARIN SOD (PORCINE) 5,000 UNIT/ML 1 ML VIAL SUBCUT SCH ×3 (06:00→22:02)
[2020-01-27] MEDS: ACETAMINOPHEN 325 MG TABLET PO PRN ×3 (06:01→22:01)
[2020-01-27 06:15] LABS: ABSOLUTE BASOPHILS # (AUTO) 0.1 10^3/uL (0.0-0.2); ABSOLUTE EOSINOPHILS # (AUTO) 0.1 10^3/uL (0.0-0.6); ABSOLUTE LYMPHOCYTES (AUTO) 1.2 10^3/uL (0.5-4.7); ABSOLUTE MONOCYTES (AUTO) 0.9 10^3/uL (0.1-1.4); ABSOLUTE NEUT (AUTO) 10.9 10^3/uL (1.7-8.2); BASOPHILS % (AUTO) 0.5 % (0-2); EOSINOPHILS % (AUTO) 0.4 % (0-6); HEMATOCRIT 24.3 % (37.9-51.0); HEMOGLOBIN 8.2 g/dL (13.5-17.0); LYMPHOCYTES % (AUTO) 9.3 % (13-45); MEAN CORPUSCULAR HEMOGLOBIN 25.7 pg (27.0-33.4); MEAN CORPUSCULAR HGB CONC 33.6 g/dL (32.0-36.0); MEAN CORPUSCULAR VOLUME 76 fl (80-97); MONOCYTES % (AUTO) 7.1 % (3-13); PLATELET COUNT 242 10^3/uL (150-450); RED BLOOD COUNT 3.18 10^6/uL (4.35-5.55); RED CELL DISTRIBUTION WIDTH 14.6 % (11.5-14.0); SEGMENTED NEUTROPHILS % (AUTO) 82.7 % (42-78); TOTAL CELLS COUNTED % (AUTO) 100 %; WHITE BLOOD COUNT 13.2 10^3/uL (4.0-10.5)
[2020-01-27 06:36] LABS: ANION GAP 6 (5-19); BLOOD UREA NITROGEN 40 mg/dL (7-20); CALCIUM 7.1 mg/dL (8.4-10.2); CARBON DIOXIDE 22 mmol/L (22-30); CHLORIDE 107 mmol/L (98-107); GLUCOSE 81 mg/dL (75-110); POTASSIUM 4.8 mmol/L (3.6-5.0)
[2020-01-27] MEDS ORDERED: ERGOCALCIFEROL (VITAMIN D2) 50000 UNIT (1.25 MG) CAPSULE PO SCH (08:00)
[2020-01-27] MEDS: NICOTINE 21 MG/24 HR PATCH.TD24 TD SCH (09:55)
[2020-01-27] MEDS: LIDOCAINE 5% (700 MG) TRANSDERMAL ADH..PATCH TP SCH (11:10)
--- NOTE | 2020-01-27 11:30 | PDOC PROGRESS REPORT ---
Subjective Date:: 01/27/20 Subjective:: Patient does not appear to be comfortable. He reports that he feels poorly in g eneral. He is still having hemoptysis. Reason For Visit: PNEUMONIA,RULE OUT TB,RIGHT SHOULDER PAIN Physical Exam Vital Signs: Temp Pulse Resp BP Pulse Ox 99.1 F 71 16 123/68 97 01/27/20 08:52 01/27/20 06:59 01/27/20 06:59 01/27/20 06:59 01/27/20 06:59 Intake & Output 01/26/20 01/27/20 01/28/20 06:59 06:59 06:59 Intake Total 5425 7571 Output Total 575 1175 Balance 4850 6396 Weight 68.8 kg 73.6 kg General appearance: PRESENT: cooperative, mild distress - Mild to moderate distress, well-developed Head exam: PRESENT: atraumatic, normocephalic Eye exam: PRESENT: conjunctiva pink. ABSENT: scleral icterus Ear exam: PRESENT: normal external ear exam. ABSENT: bleeding, drainage Respiratory exam: PRESENT: decreased breath sounds - At bases, symmetrical, unlabored. ABSENT: rales, rhonchi, tachypnea, wheezes Cardiovascular exam: PRESENT: RRR, +S1, +S2. ABSENT: bradycardia, diastolic murmur, irregular rhythm, systolic murmur, tachycardia GI/Abdominal exam: PRESENT: normal bowel sounds, soft. ABSENT: distended, guarding, tenderness Rectal exam: PRESENT: deferred Gentrourinary exam: ABSENT: indwelling catheter Extremities exam: ABSENT: pedal edema Musculoskeletal exam: PRESENT: ambulatory. ABSENT: deformity Neurological exam: PRESENT: alert, awake, oriented to person, oriented to place, oriented to time, oriented to situation, CN II-XII grossly intact. ABSENT: altered Psychiatric exam: PRESENT: flat affect. ABSENT: agitated, anxious Focused psych exam: ABSENT: delusional, paranoid, restlessness Skin exam: PRESENT: dry, normal color, warm. ABSENT: rash Results Laboratory Results: 01/27/20 05:49 01/27/20 05:49 01/26/20 01/26/20 01/26/20 08:50 13:41 17:39 WBC RBC Hgb Hct MCV MCH MCHC RDW Plt Count Seg Neutrophils % Sodium Potassium Chloride Carbon Dioxide Anion Gap BUN Creatinine 1.64 H Est GFR ( Amer) 58 L Glucose Calcium Phosphorus 5.5 H Magnesium PTH Intact 34.7 01/27/20 01/27/20 05:49 05:49 WBC 13.2 H RBC 3.18 L Hgb 8.2 L Hct 24.3 L MCV 76 L MCH 25.7 L MCHC 33.6 RDW 14.6 H Plt Count 242 Seg Neutrophils % 82.7 H Sodium 135.0 L Potassium 4.8 Chloride 107 Carbon Dioxide 22 Anion Gap 6 BUN 40 H Creatinine 1.54 H Est GFR ( Amer) > 60 Glucose 81 Calcium 7.1 L Phosphorus Magnesium 2.3 PTH Intact 01/24/20 14:45 Blood Blood Culture (PCR) - Final Staphylococcus Aureus 01/24/20 14:45 Blood Blood Culture - Final Staphylococcus Aureus 01/24/20 14:35 Blood Blood Culture (PCR) - Final Staphylococcus Aureus 01/24/20 14:35 Blood Blood Culture - Final Staphylococcus Aureus 01/25/20 18:45 Blood Blood Culture (PCR) - Final Staphylococcus Aureus 01/25/20 18:30 Blood Blood Culture (PCR) - Final Staphylococcus Aureus 01/22/20 20:20 Blood Blood Culture (PCR) - Final Staphylococcus Aureus 01/22/20 20:20 Blood Blood Culture - Final Staphylococcus Aureus 01/23/20 17:56 Blood Blood Culture (PCR) - Final Staphylococcus Aureus 01/23/20 17:56 Blood Blood Culture - Final Staphylococcus Aureus 01/23/20 17:33 Blood Blood Culture (PCR) - Final Staphylococcus Aureus 01/23/20 17:33 Blood Blood Culture - Final Staphylococcus Aureus 01/22/20 18:14 Troponin I < 0.012 Impressions: Chest X-Ray 01/22/20 16:26 IMPRESSION: Multicentric opacification the lungs. Likely multicentric pneumonia. Recommend follow-up after treatment. Chest CT 01/22/20 19:42 IMPRESSION: 1. Multiple bilateral cavitary nodules throughout both lungs with the largest measuring 4.7 cm and the left lower lobe. This may represent disseminated bacterial or tuberculous infection, immunologic sequela, or neoplastic disease. 2. No urinary stones or hydronephrosis. Abdomen/Pelvis CT 01/22/20 19:43 IMPRESSION: 1. Multiple bilateral cavitary nodules throughout both lungs with the largest measuring 4.7 cm and the left lower lobe. This may represent disseminated bacterial or tuberculous infection, immunologic sequela, or neoplastic disease. 2. No urinary stones or hydronephrosis. Skull X-Ray 01/23/20 00:00 IMPRESSION: Radiopaque foreign body in the left face as above. Shoulder X-Ray 01/23/20 09:00 IMPRESSION: No acute findings in the shoulder. Numerous right-sided pulmonary nodules. Lumbar Spine CT 01/25/20 00:00 IMPRESSION: 1. No acute findings visualized in the lumbar spine. No CT evidence of osteomyelitis or discitis. 2. Degenerative changes at L5-S1 with suggestion of mild spinal canal narrowing and moderate to severe bilateral neural foraminal narrowing. Thoracic Spine CT 01/25/20 00:00 IMPRESSION: 1. No acute findings visualized in the thoracic spine. 2. Hypodense lesion in the spleen which is nonspecific on this exam. Given the history of endocarditis, splenic abscess cannot be excluded. If indicated, contrasted CT could be performed for further evaluation. Upper Extremity CT 01/25/20 00:00 IMPRESSION: 1. No acute findings visualized at the right shoulder. 2. Multiple cavitary nodules again visualized in the right lung. Compared to the prior study, there is interval worsening of areas of consolidation in the right lower lobe. There is also a small right pleural effusion. Assessment and Plan - Diagnosis (1) Infectious endocarditis Qualifiers: Infective endocarditis organism: bacterial Chronicity: acute Qualified Code(s): I33.0 - Acute and subacute infective endocarditis Is this a current diagnosis for this admission?: Yes (2) Bacteremia due to Staphylococcus aureus Is this a current diagnosis for this admission?: Yes (3) Cavitary pneumonia Is this a current diagnosis for this admission?: Yes (4) Acute kidney injury Is this a current diagnosis for this admission?: Yes (5) Back pain Qualifiers: Back pain location: low back pain Chronicity: acute Back pain laterality: bilateral Sciatica presence: without sciatica Qualified Code(s): M54.5 - Low back pain Is this a current diagnosis for this admission?: Yes (6) Right shoulder pain Qualifiers: Chronicity: acute Qualified Code(s): M25.511 - Pain in right shoulder Is this a current diagnosis for this admission?: Yes (7) Microcytic hypochromic anemia Is this a current diagnosis for this admission?: Yes (8) Hypocalcemia Is this a current diagnosis for this admission?: Yes (9) Hypovitaminosis D Is this a current diagnosis for this admission?: Yes (10) Hypokalemia Is this a current diagnosis for this admission?: Yes (11) IVDU (intravenous drug user) Is this a current diagnosis for this admission?: Yes (12) Opioid dependence Qualifiers: Substance use status: uncomplicated Qualified Code(s): F11.20 - Opioid dependence, uncomplicated Is this a current diagnosis for this admission?: Yes (13) Opioid withdrawal Is this a current diagnosis for this admission?: Yes (14) Hypoalbuminemia Is this a current diagnosis for this admission?: Yes (15) Transaminitis Is this a current diagnosis for this admission?: Yes (16) Tobacco abuse Is this a current diagnosis for this admission?: Yes (17) Malaise and fatigue Is this a current diagnosis for this admission?: Yes (18) Suspected COVID-19 virus infection Is this a current diagnosis for this admission?: Yes (19) Suspected tuberculosis Is this a current diagnosis for this admission?: Yes - Plan Summary Summary: (1) Infectious endocarditis Qualifiers: Infective endocarditis organism: bacterial Chronicity: acute Qualified Code(s): I33.0 - Acute and subacute infective endocarditis Is this a current diagnosis for this admission?: Yes Plan: History of IVDU Meets modified Adam criteria with 2 major - Consistently positive blood MSSA cultures admission date 01/22/2020 - Echocardiogram normal for tricuspid valve vegetation measuring 3.12 cm x 1.9 cm with mild to moderate tricuspid regurg. - Evidence of multiple septic emboli lungs Received treatment with vancomycin with dosing as per pharmacy 01/22/2020 to 01/25/2020. - Stopped vanc therapy due to elvated vanc trough and onset of ALANIS Pt with persistent bactermia, low-grade fever and climbing WBC count regardless of vanc therapy (1250mg q8hr) Case discussed with Dr. Rodriguez, infectious disease. Note reviewed. - Discontinue vanc - Initiate Nafcillin 12g/day IV q4 (Date initiated 01/26/2020) - Continue therapy for 6 weeks after blood culture cleared With septic emboli the patient may need a longer course of antibiotic treatment (2) Bacteremia due to Staphylococcus aureus Is this a current diagnosis for this admission?: Yes Plan: 01/22/2020 positive blood culture MSSA x2. 01/23/2020 positive blood culture MSSA x2. 01/24/2020 positive blood culture MSSA x2 01/25/2020 culture blood culture MSSA x2 01/25 Repeat culture pending Treatment as above Tolerating nafcillin (3) Cavitary pneumonia Is this a current diagnosis for this admission?: Yes Plan: ID consulted, appreciate recommendations, note reviewed, case discussed. 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 Consider repeat CT chest to evaluate for empyema if leukocytosis continues to increase. If unrevealing consider tagged WBC scan. Will order CT scan today as patient continues to have hemoptysis (4) Acute kidney injury Is this a current diagnosis for this admission?: Yes Plan: BUN/Creatinine 30/1.27 -> 37/1.51 Producing urine. Strict I&Os. Hx recent contrast and vanc therapy. Initiate and continue with aggressive IVF. Continue daily BMP. Avoid all nephritoxic medications. Creatinine improving. Monitor labs. (5) Right shoulder pain Qualifiers: Chronicity: acute Qualified Code(s): M25.511 - Pain in right shoulder Is this a current diagnosis for this admission?: Yes Plan: Unable to obtain MRI (BB in skull) CT RUE without signs osteo. Consider tagged WBC. (6) Back pain Qualifiers: Back pain location: low back pain Chronicity: acute Back pain laterality: bilateral Sciatica presence: without sciatica Qualified Code(s): M54.5 - Low back pain Is this a current diagnosis for this admission?: Yes Plan: Lumbar and thoracic CT witohut evidence osteo. Lidocaine patch. Tylenol. KPad (7) Microcytic hypochromic anemia Is this a current diagnosis for this admission?: Yes Plan: Hgb downward trend since admission. HGB 7.7 morning labs. Type and screen ordered. Iron studies ordered. Transfuse if <7.0. Hemoglobin is slightly lower today. With increasing hemoptysis will reconsider transfusion. (8) Hypovitaminosis D Is this a current diagnosis for this admission?: Yes Plan: Vitamin D <12.8. Cause of hypocalcemia 7.0. Tx Vitamin D 50,000 once weekly. (9) Hypocalcemia Is this a current diagnosis for this admission?: Yes Plan: Secondary to above. Value corrected due to low albumin = 8.4. Tx: 1gm calcium gluconate IV Continue to monitor calcium. Also consider low albumin (10) IVDU (intravenous drug user) Is this a current diagnosis for this admission?: Yes Plan: History of IV drug use most recently used 01/13. Cause of tricuspid infective endocarditis, positive MSSA blood cultures. (11) Opioid dependence Qualifiers: Substance use status: uncomplicated Qualified Code(s): F11.20 - Opioid dependence, uncomplicated Is this a current diagnosis for this admission?: Yes Plan: Historically treated with methadone, more recently Subutex 10mg SL daily. Discontinued Suboxone. Increased methadone to 30 mg every 6 hours. - SR laxative provided for constipation. - Discussed risk of QT prolongation with pt. He is aware and understanding of risk. Patient and myself both agree that benefit > risk. Baseline EKG 01/21 reviewed. QTc 468. Repeat EKG tomorrow, if stable repeat EKG once weekly. (12) Opioid withdrawal Is this a current diagnosis for this admission?: Yes Plan: Resolved. (13) Hypokalemia Is this a current diagnosis for this admission?: Yes Plan: Resolved. Monitor daily electrolytes. (14) Transaminitis Is this a current diagnosis for this admission?: Yes Plan: Patient has elevated enzymes: AST/ALT/alk phos => 109/82/226. Hepatitis panel negative. (15) Hypoalbuminemia Is this a current diagnosis for this admission?: Yes (16) Tobacco abuse Is this a current diagnosis for this admission?: Yes (17) Malaise and fatigue Is this a current diagnosis for this admission?: Yes Plan: As above. (18) Suspected COVID-19 virus infection Is this a current diagnosis for this admission?: Yes Serology negative. COVID-19 ruled out. (19) Suspected tuberculosis Is this a current diagnosis for this admission?: Yes Plan: Ruled out. No further attention needed at this time. - Time Time Spent with patient: 15-24 minutes Medications reviewed and adjusted accordingly: Yes Anticipated Discharge Disposition: Home with Home Health Anticipated Discharge Timeframe: At least 1 more week
--- NOTE | 2020-01-27 14:47 | RADIOLOGY REPORT (SQ) ---
EXAM DESCRIPTION: CT CHEST WITHOUT IMAGES COMPLETED DATE/TIME: 01/27/2020 2:08 pm REASON FOR STUDY: Worsening hemoptysis COMPARISON: 01/22/2020 TECHNIQUE: CT scan performed of the chest without intravenous contrast. Images reviewed with lung, soft tissue and bone windows. Reconstructed coronal and sagittal MPR images reviewed. All images st ored on PACS. All CT scanners at this facility use dose modulation, iterative reconstruction, and/or weight based d osing when appropriate to reduce radiation dose to as low as reasonably achievable (ALARA). [facility]: Dose Right [facility]: CareDose [facility]: Dose Right [facility]: Teradose 4D [facility]: Smart EPIS RADIATION DOSE: CT Rad equipment meets quality standard of care and radiation dose reduction techniq ues were employed. CTDIvol: 12.9 mGy. DLP: 562 mGy-cm. mGy. LIMITATIONS: No technical limitations. FINDINGS: LUNGS AND PLEURA: Multiple pulmonary nodules are once again seen. Most of these exhibit l ess cavitation than on the earlier study. These are peripheral generally. There is a solid pleural- based nodule on the right on image 49 that measures 19 x 18 mm. This is unchanged. There is an irre gular partially solid pleural base mass on the left that measures 19.2 x 24.8 mm that is larger. The re is a large right pleural effusion and a moderate left pleural effusion. There appears to be consi derable airspace disease in the right lower lobe. HILAR AND MEDIASTINAL STRUCTURES: No identified masses or abnormal nodes. No obvious aneurysm. HEART AND VASCULAR STRUCTURES: No aneurysm. No pericardial effusion. UPPER ABDOMEN: Hepatosplenomegaly. THYROID AND OTHER SOFT TISSUES: No masses. No adenopathy. BONES: No significant finding. HARDWARE: None in the chest. OTHER: No other significant findings. IMPRESSION: 1. Multiple generally peripheral pulmonary nodules are seen. These are less cavitary t pascal on the earlier study. Many of these are larger. There is a large right pleural effusion and mod erate left pleural effusion. There is considerable airspace disease in the right lower lobe, pneumon ia versus atelectasis. The overall appearance suggests an atypical infectious/ inflammatory process versus neoplasm. 2. Hepatosplenomegaly. TECHNICAL DOCUMENTATION: JOB ID: [id number] Quality ID # [id number]: Final reports with documentation of one or more dose reduction techniques (e.g., Au tomated exposure control, adjustment of the mA and/or kV according to patient size, use of iterative reconstruction technique) 2010 [employer]- All Rights Reserved Reading location - IP/workstation name: [email or web address]
[2020-01-27] MEDS: PHARMACY COMMUNICATION ORDER MC SCH (22:03)
[2020-01-28] MEDS: METHADONE HCL 10 MG TABLET PO SCH ×4 (00:21→17:05)
[2020-01-28] MEDS: NAFCILLIN SODIUM 2 GM in DEXTROSE 5%-WATER 100 ML IV SCH ×6 (02:46→21:40)
[2020-01-28] MEDS: ACETAMINOPHEN 325 MG TABLET PO PRN ×2 (06:31→18:08)
[2020-01-28] MEDS: HEPARIN SOD (PORCINE) 5,000 UNIT/ML 1 ML VIAL SUBCUT SCH ×3 (06:31→21:39)
[2020-01-28] MEDS: NORMAL SALINE 1000 ML 1,000 ML IV PRN ×3 (06:32→17:11)
[2020-01-28 07:45] LABS: HEMATOCRIT 22.5 % (37.9-51.0); MEAN CORPUSCULAR HEMOGLOBIN 25.8 pg (27.0-33.4); MEAN CORPUSCULAR HGB CONC 33.8 g/dL (32.0-36.0); MEAN CORPUSCULAR VOLUME 76 fl (80-97); PLATELET COUNT 300 10^3/uL (150-450); RED BLOOD COUNT 2.95 10^6/uL (4.35-5.55); RED CELL DISTRIBUTION WIDTH 14.6 % (11.5-14.0)
[2020-01-28 08:02] LABS: ANION GAP 10 (5-19); BLOOD UREA NITROGEN 36 mg/dL (7-20); CALCIUM 7.1 mg/dL (8.4-10.2); CARBON DIOXIDE 17 mmol/L (22-30); CHLORIDE 109 mmol/L (98-107); GLUCOSE 83 mg/dL (75-110); POTASSIUM 4.6 mmol/L (3.6-5.0)
[2020-01-28 08:51] LABS: ABSOLUTE LYMPHOCYTES# (MANUAL) 1.7 10^3/uL (0.5-4.7); ABSOLUTE MONOCYTES # (MANUAL) 0.5 10^3/uL (0.1-1.4); BAND NEUTROPHILS % (MANUAL) 1 % (3-5); BASOPHILS % (MANUAL) 0 % (0-2); EOSINOPHILS % (MANUAL) 0 % (0-6); LYMPHOCYTES % (MANUAL) 14 % (13-45); MONOCYTES % (MANUAL) 4 % (3-13); SEGMENTED NEUTROPHILS % (MAN) 81 % (42-78); TOTAL CELLS COUNTED 100
[2020-01-28 08:54] LABS: ANISOCYTOSIS SLIGHT; HYPOCHROMASIA 1+
[2020-01-28 08:56] LABS: PLATELET COMMENT ADEQUATE; POLYCHROMASIA 1+
[2020-01-28 09:00] LABS: HEMOGLOBIN 7.6 g/dL (13.5-17.0)
[2020-01-28] MEDS: LIDOCAINE 5% (700 MG) TRANSDERMAL ADH..PATCH TP SCH (10:14)
[2020-01-28] MEDS: NICOTINE 21 MG/24 HR PATCH.TD24 TD SCH (10:15)
--- NOTE | 2020-01-28 13:38 | PDOC PROGRESS REPORT ---
Subjective Date:: 01/28/20 Subjective:: Patient complaining of significant pain with coughing or movement. Reason For Visit: PNEUMONIA,RULE OUT TB,RIGHT SHOULDER PAIN Physical Exam Vital Signs: Temp Pulse Resp BP Pulse Ox 97.8 F 98 20 128/62 H 98 01/28/20 09:00 01/28/20 12:00 01/28/20 12:00 01/28/20 12:00 01/28/20 12:00 Intake & Output 01/27/20 01/28/20 01/29/20 06:59 06:59 06:59 Intake Total 7571 3498 1000 Output Total 1175 1450 Balance 6396 2048 1000 Weight 73.6 kg 76.4 kg General appearance: PRESENT: other - Well-developed 34-year-old male in moderate distress resting in bed Head exam: PRESENT: atraumatic, normocephalic Eye exam: PRESENT: conjunctiva pale. ABSENT: scleral icterus Ear exam: PRESENT: normal external ear exam. ABSENT: bleeding, drainage Mouth exam: PRESENT: moist, tongue midline Respiratory exam: PRESENT: chest wall tenderness, decreased breath sounds - At bases right greater than left, symmetrical, tachypnea. ABSENT: rales, rhonchi, wheezes Cardiovascular exam: PRESENT: RRR, +S1, +S2. ABSENT: bradycardia, diastolic murmur, irregular rhythm, systolic murmur, tachycardia GI/Abdominal exam: PRESENT: normal bowel sounds, soft. ABSENT: distended, guarding, tenderness Rectal exam: PRESENT: deferred Gentrourinary exam: ABSENT: indwelling catheter Extremities exam: ABSENT: pedal edema Musculoskeletal exam: PRESENT: ambulatory, other - Clearly in significant discomfort with moving and coughing.. ABSENT: deformity, dislocation Neurological exam: PRESENT: alert, awake, oriented to person, oriented to place, oriented to time, oriented to situation, CN II-XII grossly intact. ABSENT: altered Psychiatric exam: PRESENT: appropriate affect. ABSENT: agitated, anxious Focused psych exam: ABSENT: delusional, paranoid, restlessness Skin exam: PRESENT: dry, pallor, warm Results Laboratory Results: 01/28/20 07:20 01/28/20 07:20 01/26/20 01/28/20 01/28/20 08:50 07:20 07:20 WBC 12.0 H RBC 2.95 L Hgb 7.6 L Hct 22.5 L MCV 76 L MCH 25.8 L MCHC 33.8 RDW 14.6 H Plt Count 300 Seg Neutrophils % Not Reportable Sodium 135.7 L Potassium 4.6 Chloride 109 H Carbon Dioxide 17 L Anion Gap 10 BUN 36 H Creatinine 1.71 H Est GFR ( Amer) 55 L Glucose 83 Calcium 7.1 L Magnesium 2.3 Blood Type A POSITIVE Antibody Screen NEGATIVE 01/25/20 05:46 Sputum AFB Smear Concentration - Final 01/25/20 05:46 Sputum Acid Fast Bacilli Smear - Final 01/25/20 18:30 Blood Blood Culture (PCR) - Final Staphylococcus Aureus 01/25/20 18:30 Blood Blood Culture - Final Staphylococcus Aureus 01/25/20 18:45 Blood Blood Culture (PCR) - Final Staphylococcus Aureus 01/25/20 18:45 Blood Blood Culture - Final Staphylococcus Aureus 01/24/20 14:45 Blood Blood Culture (PCR) - Final Staphylococcus Aureus 01/24/20 14:45 Blood Blood Culture - Final Staphylococcus Aureus 01/24/20 14:35 Blood Blood Culture (PCR) - Final Staphylococcus Aureus 01/24/20 14:35 Blood Blood Culture - Final Staphylococcus Aureus 01/22/20 18:14 Troponin I < 0.012 Impressions: Chest X-Ray 01/22/20 16:26 IMPRESSION: Multicentric opacification the lungs. Likely multicentric pneumonia. Recommend follow-up after treatment. Abdomen/Pelvis CT 01/22/20 19:43 IMPRESSION: 1. Multiple bilateral cavitary nodules throughout both lungs with the largest measuring 4.7 cm and the left lower lobe. This may represent disseminated bacterial or tuberculous infection, immunologic sequela, or neoplastic disease. 2. No urinary stones or hydronephrosis. Skull X-Ray 01/23/20 00:00 IMPRESSION: Radiopaque foreign body in the left face as above. Shoulder X-Ray 01/23/20 09:00 IMPRESSION: No acute findings in the shoulder. Numerous right-sided pulmonary nodules. Lumbar Spine CT 01/25/20 00:00 IMPRESSION: 1. No acute findings visualized in the lumbar spine. No CT evidence of osteomyelitis or discitis. 2. Degenerative changes at L5-S1 with suggestion of mild spinal canal narrowing and moderate to severe bilateral neural foraminal narrowing. Thoracic Spine CT 01/25/20 00:00 IMPRESSION: 1. No acute findings visualized in the thoracic spine. 2. Hypodense lesion in the spleen which is nonspecific on this exam. Given the history of endocarditis, splenic abscess cannot be excluded. If indicated, contrasted CT could be performed for further evaluation. Upper Extremity CT 01/25/20 00:00 IMPRESSION: 1. No acute findings visualized at the right shoulder. 2. Multiple cavitary nodules again visualized in the right lung. Compared to the prior study, there is interval worsening of areas of consolidation in the right lower lobe. There is also a small right pleural effusion. Chest CT 01/27/20 00:00 IMPRESSION: 1. Multiple generally peripheral pulmonary nodules are seen. These are less cavitary than on the earlier study. Many of these are larger. There is a large right pleural effusion and moderate left pleural effusion. There is considerable airspace disease in the right lower lobe, pneumonia versus atelectasis. The overall appearance suggests an atypical infectious/ in flammatory process versus neoplasm. 2. Hepatosplenomegaly. Assessment and Plan - Diagnosis (1) Infectious endocarditis Qualifiers: Infective endocarditis organism: bacterial Chronicity: acute Qualified Code(s): I33.0 - Acute and subacute infective endocarditis Is this a current diagnosis for this admission?: Yes (2) Bacteremia due to Staphylococcus aureus Is this a current diagnosis for this admission?: Yes (3) Cavitary pneumonia Is this a current diagnosis for this admission?: Yes (4) Acute kidney injury Is this a current diagnosis for this admission?: Yes (5) Back pain Qualifiers: Back pain location: low back pain Chronicity: acute Back pain laterality: bilateral Sciatica presence: without sciatica Qualified Code(s): M54.5 - Low back pain Is this a current diagnosis for this admission?: Yes (6) Right shoulder pain Qualifiers: Chronicity: acute Qualified Code(s): M25.511 - Pain in right shoulder Is this a current diagnosis for this admission?: Yes (7) Microcytic hypochromic anemia Is this a current diagnosis for this admission?: Yes (8) Hypocalcemia Is this a current diagnosis for this admission?: Yes (9) Hypovitaminosis D Is this a current diagnosis for this admission?: Yes (10) Hypokalemia Is this a current diagnosis for this admission?: Yes (11) IVDU (intravenous drug user) Is this a current diagnosis for this admission?: Yes (12) Opioid dependence Qualifiers: Substance use status: uncomplicated Qualified Code(s): F11.20 - Opioid dependence, uncomplicated Is this a current diagnosis for this admission?: Yes (13) Opioid withdrawal Is this a current diagnosis for this admission?: Yes (14) Hypoalbuminemia Is this a current diagnosis for this admission?: Yes (15) Transaminitis Is this a current diagnosis for this admission?: Yes (16) Tobacco abuse Is this a current diagnosis for this admission?: Yes (17) Malaise and fatigue Is this a current diagnosis for this admission?: Yes (18) Suspected COVID-19 virus infection Is this a current diagnosis for this admission?: Yes (19) Suspected tuberculosis Is this a current diagnosis for this admission?: Yes - Plan Summary Summary: (1) Infectious endocarditis Qualifiers: Infective endocarditis organism: bacterial Chronicity: acute Qualified Code(s): I33.0 - Acute and subacute infective endocarditis Is this a current diagnosis for this admission?: Yes Plan: History of IVDU Meets modified Adam criteria with 2 major - Consistently positive blood MSSA cultures admission date 01/22/2020 - Echocardiogram normal for tricuspid valve vegetation measuring 3.12 cm x 1.9 cm with mild to moderate tricuspid regurg. - Evidence of multiple septic emboli lungs Received treatment with vancomycin with dosing as per pharmacy 01/22/2020 to 01/25/2020. - Stopped vanc therapy due to elvated vanc trough and onset of ALANIS Pt with persistent bactermia, low-grade fever and climbing WBC count regardless of vanc therapy (1250mg q8hr) Case discussed with Dr. Rodriguez, infectious disease. Note reviewed. - Discontinue vanc - Initiate Nafcillin 12g/day IV q4 (Date initiated 01/26/2020) - Continue therapy for 6 weeks after blood culture cleared With septic emboli the patient may need a longer course of antibiotic treatment 01/28/2020-tolerating nafcillin. (2) Bacteremia due to Staphylococcus aureus Is this a current diagnosis for this admission?: Yes Plan: 01/22/2020 positive blood culture MSSA x2. 01/23/2020 positive blood culture MSSA x2. 01/24/2020 positive blood culture MSSA x2 01/25/2020 culture blood culture MSSA x2 01/25 Repeat culture pending Treatment as above Tolerating nafcillin 01/28/2020-plus positive blood cultures 01/25/2020. Multiple cultures drawn since then. None have been positive. (3) Cavitary pneumonia Is this a current diagnosis for this admission?: Yes Plan: ID consulted, appreciate recommendations, note reviewed, case discussed. 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 Consider repeat CT chest to evaluate for empyema if leukocytosis continues to increase. If unrevealing consider tagged WBC scan. Will order CT scan today as patient continues to have hemoptysis 01/28/2020-CT scan revealed bilateral effusions. Much larger on the right. Discussed with Dr. Lake. Patient will be getting a chest tube in the morning. We will know if it is a parapneumonic effusion or empyema. (4) Acute kidney injury Is this a current diagnosis for this admission?: Yes Plan: BUN/Creatinine 30/1.27 -> 37/1.51 Producing urine. Strict I&Os. Hx recent contrast and vanc therapy. Initiate and continue with aggressive IVF. Continue daily BMP. Avoid all nephritoxic medications. Creatinine improving. Monitor labs. 01/28/2020-serum creatinine bumped slightly. We will continue IV fluids but encourage the patient to drink more liquids. (5) Right shoulder pain Qualifiers: Chronicity: acute Qualified Code(s): M25.511 - Pain in right shoulder Is this a current diagnosis for this admission?: Yes Plan: Unable to obtain MRI (BB in skull) CT RUE without signs osteo. Consider tagged WBC. 01/28/2020-once chest tube is in place and the patient has some relief that we will likely order a tagged white cell study. (6) Back pain Qualifiers: Back pain location: low back pain Chronicity: acute Back pain laterality: bilateral Sciatica presence: without sciatica Qualified Code(s): M54.5 - Low back pain Is this a current diagnosis for this admission?: Yes Plan: Lumbar and thoracic CT witohut evidence osteo. Lidocaine patch. Tylenol. KPad 01/28/2020-K pad ineffective. Some lumbar disc disease especially at L5-S1 with significant narrowing of the bilateral foramen. Certainly not a surgical candidate or candidate for any intervention at this time due to his infection. (7) Microcytic hypochromic anemia Is this a current diagnosis for this admission?: Yes Plan: Hgb downward trend since admission. HGB 7.7 morning labs. Type and screen ordered. Iron studies ordered. Transfuse if <7.0. Hemoglobin is slightly lower today. With increasing hemoptysis will reconsider transfusion. 01/28/2020-hemoglobin was 7.6 with ongoing hemoptysis. The patient will be having a procedure tomorrow. At this time I did opt to transfuse 1 unit of packed red blood cells. (8) Hypovitaminosis D Is this a current diagnosis for this admission?: Yes Plan: Vitamin D <12.8. Cause of hypocalcemia 7.0. Tx Vitamin D 50,000 once weekly. 01/28/2020-continue vitamin D (9) Hypocalcemia Is this a current diagnosis for this admission?: Yes Plan: Secondary to above. Value corrected due to low albumin = 8.4. Tx: 1gm calcium gluconate IV Continue to monitor calcium. Also consider low albumin 01/28/2020-calcium bicarbonate added at this time. Monitor electrolytes. (10) IVDU (intravenous drug user) Is this a current diagnosis for this admission?: Yes Plan: History of IV drug use most recently used 01/13. Cause of tricuspid infective endocarditis, positive MSSA blood cultures. (11) Opioid dependence Qualifiers: Substance use status: uncomplicated Qualified Code(s): F11.20 - Opioid dependence, uncomplicated Is this a current diagnosis for this admission?: Yes Plan: Historically treated with methadone, more recently Subutex 10mg SL daily. Discontinued Suboxone. Increased methadone to 30 mg every 6 hours. - SR laxative provided for constipation. - Discussed risk of QT prolongation with pt. He is aware and understanding of risk. Patient and myself both agree that benefit > risk. Baseline EKG 01/21 reviewed. QTc 468. Repeat EKG tomorrow, if stable repeat EKG once weekly. 01/28/2020-due to multiple cofactors contributing to his pain I did initiate 1 mg of Dilaudid IV every 6 hours if needed. (12) Opioid withdrawal Is this a current diagnosis for this admission?: Yes Plan: Resolved. (13) Hypokalemia Is this a current diagnosis for this admission?: Yes Plan: Resolved. Monitor daily electrolytes. (14) Transaminitis Is this a current diagnosis for this admission?: Yes Plan: Patient has elevated enzymes: AST/ALT/alk phos => 109/82/226. Hepatitis panel negative. (15) Hypoalbuminemia Is this a current diagnosis for this admission?: Yes (16) Tobacco abuse Is this a current diagnosis for this admission?: Yes (17) Malaise and fatigue Is this a current diagnosis for this admission?: Yes Plan: As above. (18) Suspected COVID-19 virus infection Is this a current diagnosis for this admission?: Yes Serology negative. COVID-19 ruled out. (19) Suspected tuberculosis Is this a current diagnosis for this admission?: Yes Plan: Ruled out. No further attention needed at this time. 01/28/2020- The patient requested that I go back up to his room to further discuss his current condition. In fact brought a computer on wheels into the room and we reviewed his imaging studies. This included the most recent CT scan of the chest as well as elbow x-ray and lumbar spine films. He truly appreciates the depth of his illness. We discussed the multiple treatment options and at this point insertion of the chest tube is primary. Once that is in and helping resolve the fluid collection then consider a tagged white blood cell study. He cannot have an MRI due to foreign object in his eye. Certainly the changes on imaging of the lumbar spine would account for significant back pain. I did increase the pain medicine as noted above. - Time Time Spent with patient: 25-34 minutes Medications reviewed and adjusted accordingly: Yes Anticipated Discharge Disposition: Unknown Anticipated Discharge Timeframe: Likely 1-2 more weeks
[2020-01-28] MEDS ORDERED: ONDANSETRON HCL INJ/PF 4 MG/2 ML SDV IV PRN (15:00)
--- NOTE | 2020-01-28 16:25 | RADIOLOGY REPORT (SQ) ---
EXAM DESCRIPTION: PICC INSERTION IMAGES COMPLETED DATE/TIME: 01/28/2020 3:54 pm REASON FOR STUDY: Lost access COMPARISON: None. FLUOROSCOPY TIME: 0.17 minutes 2 images saved to PACS. TECHNIQUE: Fluoroscopic and ultrasound guided PICC placement. LIMITATIONS: None. PROCEDURE: After written consent and assessment were obtained, the patient was brought into the fluo roscopy room and placed supine on the table. Ultrasound evaluation of potential access sites were per formed. After successfully identifying a patent left basilic vein, the left arm was prepped and drape d in a sterile fashion along with the ultrasound probe. The entry site was anesthetized with 1% lidoc stepan. A 21 gauge 7 cm needle was advanced through the skin and into the basilic vein under live ultra sound guidance. An ultrasound image was saved to PACS confirming access site. A .018 guide wire was then inserted through the needle and into the venous system. The needle was then removed and an 11 b lade scalpel was used to make a 1cm skin incision. A 5 fr peel-away sheath was advanced over the wir e and into the venous system. A measurement was then made using the existing wire and live fluoroscop ic guidance. The wire was then removed and trimmed. The PICC was advanced through the peel-away sheat h and into the venous system. The peel-away sheath was removed and the catheter was adhered to the pa tients arm with a stat lock. The catheter was then aspirated and flushed and a sterile bandage was pl aced over the access site. A fluoroscopic spot image was saved to PACS confirming the catheter tip w ithin the superior vena cava. IMPRESSION: SUCCESSFUL PLACEMENT OF A 5 FR DUAL LUMEN 37 cm CM PICC IN THE LEFT BASILIC VEIN. COMMENT: Patient medication list reviewed: Yes- Quality ID# [id number]:Eligible professional attests to doc umenting in the medical record they obtained, updated, or reviewed the patient's current medications. . Quality ID 145: Final reports for procedures using fluoroscopy that document radiation exposure josé mary, or exposure time and number of fluorographic images (if radiation exposure indices are not avail able) Quality ID #[id number]: The patient was prepped and draped using maximum sterile barrier technique including cap, mask, sterile gown, sterile gloves, a large sterile sheet, hand hygiene, and 2% Chlorhexidine fo r cutaneous antisepsis. When ultrasound is used, sterile ultrasound techniques are followed requiring sterile gel and sterile probes. TECHNICAL DOCUMENTATION: JOB ID: [id number] 2010 [employer]- All Rights Reserved Reading location - IP/workstation name: [email or web address]
[2020-01-28] MEDS: FERROUS SULFATE 325 MG TABLET PO SCH (17:05)
[2020-01-28] MEDS: HYDROMORPHONE HCL INJ/PF 2 MG/ML AMPULE IV PRN (18:07)
[2020-01-28] MEDS ORDERED: RINGERS SOLUTION,LACTATED 1,000 ML IV PRN (18:25)
--- NOTE | 2020-01-28 18:58 | Progress Note ---
Provider Note Provider Note: 01/28/2020 6:57 PM Patient just spiked a fever of over 102F. I have ordered new blood cultures and will give a single dose of ibuprofen (still with renal insufficiency) and add IV fluids.
[2020-01-28] MEDS: RINGERS SOLUTION,LACTATED 1,000 ML IV PRN ×2 (19:02→21:44)
[2020-01-28] MEDS ORDERED: IBUPROFEN 800 MG TABLET PO ONE (19:30)
[2020-01-28] MEDS: NORMAL SALINE 10 ML SDV (SCHEDULED) IV SCH (21:40)
[2020-01-28] MEDS: CALCIUM CARBONATE 500 MG TAB.CHEW PO SCH (21:41)
[2020-01-28] MEDS: PHARMACY COMMUNICATION ORDER MC SCH (21:41)
[2020-01-28 22:40] LABS: HEMATOCRIT 21.3 % (37.9-51.0); MEAN CORPUSCULAR HGB CONC 31.9 g/dL (32.0-36.0); PLATELET COUNT 280 10^3/uL (150-450); RED BLOOD COUNT 2.62 10^6/uL (4.35-5.55); RED CELL DISTRIBUTION WIDTH 15.3 % (11.5-14.0); WHITE BLOOD COUNT 11.6 10^3/uL (4.0-10.5)
[2020-01-28 22:44] LABS: MEAN CORPUSCULAR VOLUME 82 fl (80-97)
[2020-01-28 23:03] LABS: ABSOLUTE LYMPHOCYTES# (MANUAL) 1.3 10^3/uL (0.5-4.7); BAND NEUTROPHILS % (MANUAL) 2 % (3-5); BASOPHILS % (MANUAL) 0 % (0-2); EOSINOPHILS % (MANUAL) 1 % (0-6); LYMPHOCYTES % (MANUAL) 11 % (13-45); MONOCYTES % (MANUAL) 9 % (3-13); SEGMENTED NEUTROPHILS % (MAN) 77 % (42-78); TOTAL CELLS COUNTED 100
[2020-01-28 23:04] LABS: ANISOCYTOSIS 1+; BURR CELLS 2+; PLATELET COMMENT ADEQUATE; POIKILOCYTOSIS 2+
[2020-01-28 23:23] LABS: HEMOGLOBIN 6.8 g/dL (13.5-17.0)
[2020-01-29] MEDS: ACETAMINOPHEN 325 MG TABLET PO PRN (00:27)
[2020-01-29] MEDS: METHADONE HCL 10 MG TABLET PO SCH ×5 (00:27→18:26)
[2020-01-29] MEDS: NAFCILLIN SODIUM 2 GM in DEXTROSE 5%-WATER 100 ML IV SCH ×6 (04:03→21:37)
[2020-01-29] MEDS: RINGERS SOLUTION,LACTATED 1,000 ML IV PRN ×3 (05:14→21:38)
[2020-01-29] MEDS: HEPARIN SOD (PORCINE) 5,000 UNIT/ML 1 ML VIAL SUBCUT SCH ×3 (07:33→21:36)
[2020-01-29 08:42] LABS: HEMATOCRIT 24.3 % (37.9-51.0); MEAN CORPUSCULAR HEMOGLOBIN 26.3 pg (27.0-33.4); MEAN CORPUSCULAR HGB CONC 32.8 g/dL (32.0-36.0); MEAN CORPUSCULAR VOLUME 80 fl (80-97); PLATELET COUNT 307 10^3/uL (150-450); RED BLOOD COUNT 3.02 10^6/uL (4.35-5.55); RED CELL DISTRIBUTION WIDTH 15.6 % (11.5-14.0); WHITE BLOOD COUNT 13.1 10^3/uL (4.0-10.5)
[2020-01-29 09:18] LABS: ABSOLUTE LYMPHOCYTES# (MANUAL) 0.8 10^3/uL (0.5-4.7); ABSOLUTE MONOCYTES # (MANUAL) 0.5 10^3/uL (0.1-1.4); BASOPHILS % (MANUAL) 0 % (0-2); EOSINOPHILS % (MANUAL) 0 % (0-6); LYMPHOCYTES % (MANUAL) 6 % (13-45); MONOCYTES % (MANUAL) 4 % (3-13); PLATELET COMMENT ADEQUATE; SEGMENTED NEUTROPHILS % (MAN) 90 % (42-78); TOTAL CELLS COUNTED 100
[2020-01-29 09:19] LABS: ANISOCYTOSIS SLIGHT; TOXIC VACUOLATION PRESENT
[2020-01-29 09:20] LABS: PLATELET LARGE PRESENT
[2020-01-29 09:38] LABS: ANION GAP 8 (5-19); BLOOD UREA NITROGEN 31 mg/dL (7-20); CALCIUM 7.1 mg/dL (8.4-10.2); CARBON DIOXIDE 19 mmol/L (22-30); CHLORIDE 109 mmol/L (98-107); GLUCOSE 72 mg/dL (75-110); POTASSIUM 4.4 mmol/L (3.6-5.0)
[2020-01-29] MEDS: NICOTINE 21 MG/24 HR PATCH.TD24 TD SCH (10:06)
[2020-01-29] MEDS: FERROUS SULFATE 325 MG TABLET PO SCH ×2 (10:07→17:29)
[2020-01-29] MEDS: LIDOCAINE 5% (700 MG) TRANSDERMAL ADH..PATCH TP SCH (10:07)
[2020-01-29] MEDS: CALCIUM CARBONATE 500 MG TAB.CHEW PO SCH ×4 (10:07→21:36)
[2020-01-29] MEDS: NORMAL SALINE 10 ML SDV (SCHEDULED) IV SCH ×2 (10:07→21:37)
[2020-01-29] MEDS: HYDROMORPHONE HCL INJ/PF 2 MG/ML AMPULE IV PRN ×2 (10:23→21:36)
--- NOTE | 2020-01-29 10:57 | PDOC PROGRESS REPORT ---
Subjective Date:: 01/29/20 Subjective:: Patient reports getting good relief with 1 mg Dilaudid as needed dosing. Currently on nasal cannula oxygen. Still feels poorly. The patient will be having a chest tube placed later today. He remains with extremely poor appetite. Reason For Visit: PNEUMONIA,RULE OUT TB,RIGHT SHOULDER PAIN Physical Exam Vital Signs: Temp Pulse Resp BP Pulse Ox 98.7 F 73 16 132/79 H 97 01/29/20 06:31 01/29/20 06:31 01/29/20 06:31 01/29/20 06:31 01/29/20 06:31 Intake & Output 01/28/20 01/29/20 01/30/20 06:59 06:59 06:59 Intake Total 3498 4360 Output Total 1450 400 Balance 2048 3960 Weight 76.4 kg 79.3 kg General appearance: PRESENT: cooperative, mild distress - Mild to moderate distress, well-developed Head exam: PRESENT: atraumatic, normocephalic Eye exam: PRESENT: conjunctiva pale. ABSENT: scleral icterus Ear exam: PRESENT: normal external ear exam. ABSENT: bleeding, drainage Respiratory exam: PRESENT: decreased breath sounds - Right base to mid lung and left base, symmetrical, unlabored. ABSENT: rales, rhonchi, tachypnea, wheezes Cardiovascular exam: PRESENT: RRR, +S1, +S2, systolic murmur - 2/6. ABSENT: bradycardia, diastolic murmur, irregular rhythm, tachycardia GI/Abdominal exam: PRESENT: normal bowel sounds, soft. ABSENT: distended, guarding, tenderness Rectal exam: PRESENT: deferred Gentrourinary exam: ABSENT: indwelling catheter Extremities exam: ABSENT: joint swelling, pedal edema Musculoskeletal exam: PRESENT: ambulatory, normal inspection. ABSENT: deformity, dislocation Neurological exam: PRESENT: alert, awake, oriented to person, oriented to place, oriented to time, oriented to situation, CN II-XII grossly intact. ABSENT: altered Psychiatric exam: PRESENT: appropriate affect - Affect reflects his current discomfort. ABSENT: agitated, anxious Focused psych exam: ABSENT: delusional, paranoid, restlessness Skin exam: PRESENT: dry, pallor, warm. ABSENT: rash Results Laboratory Results: 01/29/20 07:34 01/29/20 08:05 01/26/20 01/28/20 01/29/20 08:50 22:20 00:30 WBC 11.6 H RBC 2.62 L Hgb 6.8 L Hct 21.3 L MCV 82 D MCH 26.0 L MCHC 31.9 L RDW 15.3 H Plt Count 280 Seg Neutrophils % Not Reportable Sodium Potassium Chloride Carbon Dioxide Anion Gap BUN Creatinine Est GFR ( Amer) Glucose Calcium Magnesium Blood Type A POSITIVE A POSITIVE Antibody Screen NEGATIVE NEGATIVE 01/29/20 01/29/20 07:34 08:05 WBC 13.1 H RBC 3.02 L Hgb 8.0 L Hct 24.3 L MCV 80 MCH 26.3 L MCHC 32.8 RDW 15.6 H Plt Count 307 Seg Neutrophils % Not Reportable Sodium 135.6 L Potassium 4.4 Chloride 109 H Carbon Dioxide 19 L Anion Gap 8 BUN 31 H Creatinine 1.69 H Est GFR ( Amer) 56 L Glucose 72 L Calcium 7.1 L Magnesium 2.1 Blood Type Antibody Screen 01/25/20 05:46 Sputum AFB Smear Concentration - Final 01/25/20 05:46 Sputum Acid Fast Bacilli Smear - Final 01/25/20 18:30 Blood Blood Culture (PCR) - Final Staphylococcus Aureus 01/25/20 18:30 Blood Blood Culture - Final Staphylococcus Aureus 01/25/20 18:45 Blood Blood Culture (PCR) - Final Staphylococcus Aureus 01/25/20 18:45 Blood Blood Culture - Final Staphylococcus Aureus 01/22/20 18:14 Troponin I < 0.012 Impressions: Chest X-Ray 01/22/20 16:26 IMPRESSION: Multicentric opacification the lungs. Likely multicentric p neumonia. Recommend follow-up after treatment. Abdomen/Pelvis CT 01/22/20 19:43 IMPRESSION: 1. Multiple bilateral cavitary nodules throughout both lungs with the largest measuring 4.7 cm and the left lower lobe. This may represent disseminated bacterial or tuberculous infection, immunologic sequela, or neoplastic disease. 2. No urinary stones or hydronephrosis. Skull X-Ray 01/23/20 00:00 IMPRESSION: Radiopaque foreign body in the left face as above. Shoulder X-Ray 01/23/20 09:00 IMPRESSION: No acute findings in the shoulder. Numerous right-sided pulmonary nodules. Lumbar Spine CT 01/25/20 00:00 IMPRESSION: 1. No acute findings visualized in the lumbar spine. No CT evidence of osteomyelitis or discitis. 2. Degenerative changes at L5-S1 with suggestion of mild spinal canal narrowing and moderate to severe bilateral neural foraminal narrowing. Thoracic Spine CT 01/25/20 00:00 IMPRESSION: 1. No acute findings visualized in the thoracic spine. 2. Hypodense lesion in the spleen which is nonspecific on this exam. Given the history of endocarditis, splenic abscess cannot be excluded. If indicated, contrasted CT could be performed for further evaluation. Upper Extremity CT 01/25/20 00:00 IMPRESSION: 1. No acute findings visualized at the right shoulder. 2. Multiple cavitary nodules again visualized in the right lung. Compared to the prior study, there is interval worsening of areas of consolidation in the right lower lobe. There is also a small right pleural effusion. Chest CT 01/27/20 00:00 IMPRESSION: 1. Multiple generally peripheral pulmonary nodules are seen. These are less cavitary than on the earlier study. Many of these are larger. T here is a large right pleural effusion and moderate left pleural effusion. There is considerable airspace disease in the right lower lobe, pneumonia versus atelectasis. The overall appearance suggests an atypical infectious/ inflammatory process versus neoplasm. 2. Hepatosplenomegaly. PICC Line Insertion 01/28/20 00:00 IMPRESSION: SUCCESSFUL PLACEMENT OF A 5 FR DUAL LUMEN 37 cm CM PICC IN THE LEFT BASILIC VEIN. Assessment and Plan - Diagnosis (1) Parapneumonic effusion Is this a current diagnosis for this admission?: Yes (2) Infectious endocarditis Qualifiers: Infective endocarditis organism: bacterial Chronicity: acute Qualified Code(s): I33.0 - Acute and subacute infective endocarditis Is this a current diagnosis for this admission?: Yes (3) Bacteremia due to Staphylococcus aureus Is this a current diagnosis for this admission?: Yes (4) Cavitary pneumonia Is this a current diagnosis for this admission?: Yes (5) Acute kidney injury Is this a current diagnosis for this admission?: Yes (6) Back pain Qualifiers: Back pain location: low back pain Chronicity: acute Back pain laterality: bilateral Sciatica presence: without sciatica Qualified Code(s): M54.5 - Low back pain Is this a current diagnosis for this admission?: Yes (7) Right shoulder pain Qualifiers: Chronicity: acute Qualified Code(s): M25.511 - Pain in right shoulder Is this a current diagnosis for this admission?: Yes (8) Microcytic hypochromic anemia Is this a current diagnosis for this admission?: Yes (9) Hypocalcemia Is this a current diagnosis for this admission?: Yes (10) Hypovitaminosis D Is this a current diagnosis for this admission?: Yes (11) Hypokalemia Is this a current diagnosis for this admission?: Yes (12) IVDU (intravenous drug user) Is this a current diagnosis for this admission?: Yes (13) Opioid dependence Qualifiers: Substance use status: uncomplicated Qualified Code(s): F11.20 - Opioid dependence, uncomplicated Is this a current diagnosis for this admission?: Yes (14) Opioid withdrawal Is this a current diagnosis for this admission?: Yes (15) Hypoalbuminemia Is this a current diagnosis for this admission?: Yes (16) Transaminitis Is this a current diagnosis for this admission?: Yes (17) Tobacco abuse Is this a current diagnosis for this admission?: Yes (18) Malaise and fatigue Is this a current diagnosis for this admission?: Yes (19) Suspected COVID-19 virus infection Is this a current diagnosis for this admission?: Yes (20) Suspected tuberculosis Is this a current diagnosis for this admission?: Yes - Plan Summary Summary: End of treatment 03/08/2020 (1) Infectious endocarditis Qualifiers: Infective endocarditis organism: bacterial Chronicity: acute Qualified Code(s): I33.0 - Acute and subacute infective endocarditis Is this a current diagnosis for this admission?: Yes Plan: History of IVDU Meets modified Adam criteria with 2 major - Consistently positive blood MSSA cultures admission date 01/22/2020 - Echocardiogram normal for tricuspid valve vegetation measuring 3.12 cm x 1.9 cm with mild to moderate tricuspid regurg. - Evidence of multiple septic emboli lungs Received treatment with vancomycin with dosing as per pharmacy 01/22/2020 to 01/25/2020. - Stopped vanc therapy due to elvated vanc trough and onset of ALANIS Pt with persistent bactermia, low-grade fever and climbing WBC count regardless of vanc therapy (1250mg q8hr) Case discussed with Dr. Rodriguez, infectious disease. Note reviewed. - Discontinue vanc - Initiate Nafcillin 12g/day IV q4 (Date initiated 01/26/2020) - Continue therapy for 6 weeks after blood culture cleared With septic emboli the patient may need a longer course of antibiotic treatment 01/28/2020-tolerating nafcillin. 01/29/2020-blood cultures have been consistently negative since 01/26/2020. 6 weeks from this date puts the end of treatment at 03/08/2020. (2) Bacteremia due to Staphylococcus aureus Is this a current diagnosis for this admission?: Yes Plan: 01/22/2020 positive blood culture MSSA x2. 01/23/2020 positive blood culture MSSA x2. 01/24/2020 positive blood culture MSSA x2 01/25/2020 culture blood culture MSSA x2 01/25 Repeat culture pending Treatment as above Tolerating nafcillin 01/28/2020-plus positive blood cultures 01/25/2020. Multiple cultures drawn since then. None have been positive. 01/29/2020-end of treatment as noted above (3) Cavitary pneumonia Is this a current diagnosis for this admission?: Yes Plan: ID consulted, appreciate recommendations, note reviewed, case discussed. 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 Consider repeat CT chest to evaluate for empyema if leukocytosis continues to increase. If unrevealing consider tagged WBC scan. Will order CT scan today as patient continues to have hemoptysis 01/28/2020-CT scan revealed bilateral effusions. Much larger on the right. Discussed with Dr. Lake. Patient will be getting a chest tube in the morning. We will know if it is a parapneumonic effusion or empyema. 01/29/2020-see parapneumonic effusion below (4) Acute kidney injury Is this a current diagnosis for this admission?: Yes Plan: BUN/Creatinine 30/1.27 -> 37/1.51 Producing urine. Strict I&Os. Hx recent contrast and vanc therapy. Initiate and continue with aggressive IVF. Continue daily BMP. Avoid all nephritoxic medications. Creatinine improving. Monitor labs. 01/28/2020-serum creatinine bumped slightly. We will continue IV fluids but encourage the patient to drink more liquids. 01/29/2020-continue IV fluids monitoring intake and output and renal function closely (5) Right shoulder pain Qualifiers: Chronicity: acute Qualified Code(s): M25.511 - Pain in right shoulder Is this a current diagnosis for this admission?: Yes Plan: Unable to obtain MRI (BB in skull) CT RUE without signs osteo. Consider tagged WBC. 01/28/2020-once chest tube is in place and the patient has some relief that we will likely order a tagged white cell study. (6) Back pain Qualifiers: Back pain location: low back pain Chronicity: acute Back pain laterality: bilateral Sciatica presence: without sciatica Qualified Code(s): M54.5 - Low back pain Is this a current diagnosis for this admission?: Yes Plan: Lumbar and thoracic CT witohut evidence osteo. Lidocaine patch. Tylenol. KPad 01/28/2020-K pad ineffective. Some lumbar disc disease especially at L5-S1 with significant narrowing of the bilateral foramen. Certainly not a surgical candid ate or candidate for any intervention at this time due to his infection. 01/29/2020-reviewed with the patient. Certain the imaging findings could account for his pain. Continue analgesia. (7) Microcytic hypochromic anemia Is this a current diagnosis for this admission?: Yes Plan: Hgb downward trend since admission. HGB 7.7 morning labs. Type and screen ordered. Iron studies ordered. Transfuse if <7.0. Hemoglobin is slightly lower today. With increasing hemoptysis will reconsider transfusion. 01/28/2020-hemoglobin was 7.6 with ongoing hemoptysis. The patient will be having a procedure tomorrow. At this time I did opt to transfuse 1 unit of packed red blood cells. 01/29/2020-the patient in fact had a second unit of packed red blood cells. Continue to monitor hemoglobin/hematocrit. (8) Hypovitaminosis D Is this a current diagnosis for this admission?: Yes Plan: Vitamin D <12.8. Cause of hypocalcemia 7.0. Tx Vitamin D 50,000 once weekly. 01/28/2020-continue vitamin D (9) Hypocalcemia Is this a current diagnosis for this admission?: Yes Plan: Secondary to above. Value corrected due to low albumin = 8.4. Tx: 1gm calcium gluconate IV Continue to monitor calcium. Also consider low albumin 01/28/2020-calcium bicarbonate added at this time. Monitor electrolytes. 01/29/2020-continue oral supplements of calcium and vitamin D. Monitor calcium levels. (10) IVDU (intravenous drug user) Is this a current diagnosis for this admission?: Yes Plan: History of IV drug use most recently used 01/13. Cause of tricuspid infective endocarditis, positive MSSA blood cultures. (11) Opioid dependence Qualifiers: Substance use status: uncomplicated Qualified Code(s): F11.20 - Opioid dependence, uncomplicated Is this a current diagnosis for this admission?: Yes Plan: Historically treated with methadone, more recently Subutex 10mg SL daily. Discontinued Suboxone. Increased methadone to 30 mg every 6 hours. - SR laxative provided for constipation. - Discussed risk of QT prolongation with pt. He is aware and understanding of risk. Patient and myself both agree that benefit > risk. Baseline EKG 01/21 reviewed. QTc 468. Repeat EKG tomorrow, if stable repeat EKG once weekly. 01/28/2020-due to multiple cofactors contributing to his pain I did initiate 1 mg of Dilaudid IV every 6 hours if needed. 01/29/2020-patient reports that 1 mg of IV Dilaudid every 6 hours as needed is very helpful. (12) Opioid withdrawal Is this a current diagnosis for this admission?: Yes Plan: Resolved. (13) Hypokalemia Is this a current diagnosis for this admission?: Yes Plan: Resolved. Monitor daily electrolytes. (14) Transaminitis Is this a current diagnosis for this admission?: Yes Plan: Patient has elevated enzymes: AST/ALT/alk phos => 109/82/226. Hepatitis panel negative. (15) Hypoalbuminemia Is this a current diagnosis for this admission?: Yes (16) Tobacco abuse Is this a current diagnosis for this admission?: Yes (17) Malaise and fatigue Is this a current diagnosis for this admission?: Yes Plan: As above. (18) Suspected COVID-19 virus infection Is this a current diagnosis for this admission?: Yes Serology negative. COVID-19 ruled out. (19) Suspected tuberculosis Is this a current diagnosis for this admission?: Yes Plan: Ruled out. No further attention needed at this time. (20) Parapneumonic effusion [id number] chest tube placed today by Dr. Lake. Appreciate the intervention. He reported cloudy fluid but definitely not empyema. The patient has been on aggressive antibiotic therapy and fluid was not sent for culture. 01/28/2020- The patient requested that I go back up to his room to further discuss his current condition. In fact brought a computer on wheels into the room and we re viewed his imaging studies. This included the most recent CT scan of the chest as well as elbow x-ray and lumbar spine films. He truly appreciates the depth of his illness. We discussed the multiple treatment options and at this point insertion of the chest tube is primary. Once that is in and helping resolve the fluid collection then consider a tagged white blood cell study. He cannot have an MRI due to foreign object in his eye. Certainly the changes on imaging of the lumbar spine would account for significant back pain. I did increase the pain medicine as noted above. - Time Time Spent with patient: 15-24 minutes Medications reviewed and adjusted accordingly: Yes Anticipated Discharge Disposition: Unknown at this time Anticipated Discharge Timeframe: 03/08/2020
[2020-01-29] MEDS ORDERED: PROPOFOL INJ 200 MG/20 ML VIAL IV ONE (12:10)
[2020-01-29] MEDS ORDERED: MIDAZOLAM 2 MG/2 ML INJ ONE ×2 (12:10→13:29)
[2020-01-29] MEDS ORDERED: LIDOCAINE 1% INJ-PF (10 MG/ML) 30 ML SDV ONE (12:10)
[2020-01-29] MEDS ORDERED: FENTANYL CITRATE INJ/PF 100 MCG/2 ML AMPUL ONE (12:10)
--- NOTE | 2020-01-29 14:14 | RADIOLOGY REPORT (SQ) ---
EXAM DESCRIPTION: CHEST SINGLE VIEW IMAGES COMPLETED DATE/TIME: 01/29/2020 2:03 pm REASON FOR STUDY: chest tube insertion COMPARISON: 01/22/2020 EXAM PARAMETERS: NUMBER OF VIEWS: One view. TECHNIQUE: Single frontal radiographic view of the chest acquired. RADIATION DOSE: NA LIMITATIONS: None. FINDINGS: LUNGS AND PLEURA: Patchy opacification in both lungs. MEDIASTINUM AND HILAR STRUCTURES: No masses. Contour normal. HEART AND VASCULAR STRUCTURES: Heart normal in size. Normal vasculature. BONES: No acute findings. HARDWARE: Thoracotomy tube in the right hemithorax extends to the apex. Left-sided PICC extends to t he superior vena cava. OTHER: No other significant finding. IMPRESSION: Cannot exclude multicentric pneumonia. Thoracotomy tube as described. PICC as describe d. TECHNICAL DOCUMENTATION: JOB ID: [id number] 2010 [employer]- All Rights Reserved Reading location - IP/workstation name: [email or web address]
[2020-01-29] MEDS ORDERED: ALTEPLASE INJ 2 MG VIAL (CATH CLEARANCE) IV ONE (21:30)
[2020-01-29] MEDS: PHARMACY COMMUNICATION ORDER MC SCH (21:37)
[2020-01-30] MEDS: NAFCILLIN SODIUM 2 GM in DEXTROSE 5%-WATER 100 ML IV SCH ×6 (02:07→22:44)
[2020-01-30] MEDS: METHADONE HCL 10 MG TABLET PO SCH ×4 (02:07→17:06)
--- NOTE | 2020-01-30 07:14 | Operative Report ---
Nonrecallable Operative Report DATE OF SURGERY: 01/29/20 PREOPERATIVE DIAGNOSIS: Parapneumonic effusion on the right POSTOPERATIVE DIAGNOSIS: Same as above OPERATION: Right sided tube thoracostomy SURGEON: COURTNEY OLVERA ANESTHESIA: LMAC TISSUE REMOVED OR ALTERED: 700 cc of turbid fluid from the right chest COMPLICATIONS: None apparent ESTIMATED BLOOD LOSS: Minimal PROCEDURE: Drains/implants: 32 Lebanese chest tube. Procedure in detail: After informed consent was obtained from the patient, he was laid in the supine position in the preop holding area. After adequate anesthesia was administered, the right chest was prepped and draped in a normal sterile fashion. 1% lidocaine was used to infiltrate the skin of the right chest. An incision was created at the anterior axillary line, just below the level of the nipple. Dissection was carried down to the chest wall using blunt dissection. The chest was entered over top of the rib, bluntly with a Roula clamp. The chest cavity was entered. A finger sweep was performed. A large amount of turbid fluid was identified. A 32 Lebanese chest tube was then directed posteriorly. It was sutured into place using 0 silk suture. A dressing was placed, and the chest tube was attached to Pleur-evac suction. Once attached to suction, approximately 700 cc of turbid fluid was removed from the chest. At this time the procedure was concluded. All sponge, instrument, and needle counts were correct.
--- NOTE | 2020-01-30 07:22 | PDOC CONSULTATION ---
Consultation Consult Date: 01/29/20 Provider Consulted: COURTNEY OLVERA Consult reason:: Large amount of right pleural fluid, in the face of septic emboli and pneumonia History of Present Illness Admission Date/PCP: 01/22/20 22:49 History of Present Illness: MARIA L PA is a 34 year old male seen in consultation at the request of the hospitalist service. This is a patient admitted with septic emboli of the lungs. Per report, the patient has a history of IV drug abuse. He has developed worsening pneumonia on the right side. CT scan performed yesterday shows a large amount of posterior pleural fluid. He reports that his shortness of breath is increasing. He finds it difficult to "catch his breath". The patient does report nausea, fevers, chills, fatigue, malaise. He denies head ache, chest pain, abdominal pain. Past Medical History Cardiac Medical History: Reports: Hypertension - Not taking medications Psychiatric Medical History: Reports: Depression Social History Lives with: Friend Smoking Status: Current Every Day Smoker Cigarettes Packs Per Day: 1 Electronic Cigarette use?: No Frequency of Alcohol Use: None Hx Recreational Drug Use: Yes Drugs: Heroin Hx Prescription Drug Abuse: No - Advance Directive Resuscitation Status: Full Code Family History Family History: None, DM Parental Family History Reviewed: Yes Children Family History Reviewed: Yes Sibling(s) Family History Reviewed.: Yes Medication/Allergy Home Medications: Buprenorphine HCl [Subutex 2 mg Sl Tablet] 10 mg SL DAILY 01/23/20 Allergies/Adverse Reactions: No Known Allergies Allergy (Unverified 01/26/20 18:02) Review of Systems Constitutional: PRESENT: anorexia, chills, fatigue, fever(s), weakness Eyes: ABSENT: visual disturbances Ears: ABSENT: hearing changes Nose, Mouth, and Throat: ABSENT: sore throat Cardiovascular: PRESENT: dyspnea on exertion. ABSENT: chest pain Respiratory: PRESENT: cough, dyspnea Gastrointestinal: PRESENT: nausea, vomiting. ABSENT: abdominal pain, bloating, hematemesis, hematochezia, melena Genitourinary: ABSENT: dysuria Musculoskeletal: ABSENT: back pain Integumentary: ABSENT: pruritus, rash Neurological: PRESENT: dizziness. ABSENT: confusion, convulsions Psychiatric: PRESENT: anxiety Endocrine: ABSENT: cold intolerance, heat intolerance Hematologic/Lymphatic: ABSENT: easy bleeding, easy bruising Physical Exam Vital Signs: Temp Pulse Resp BP Pulse Ox 98.6 F 90 20 128/62 H 96 01/29/20 12:50 01/29/20 12:50 01/29/20 12:50 01/29/20 12:50 01/29/20 12:50 Intake & Output 01/28/20 01/29/20 01/30/20 06:59 06:59 06:59 Intake Total 3498 4360 Output Total 1450 400 Balance 2048 3960 Weight 76.4 kg 79.3 kg General appearance: PRESENT: mild distress - Respiratory Eye exam: PRESENT: EOMI, PERRLA. ABSENT: scleral icterus Mouth exam: PRESENT: moist, neck supple Neck exam: ABSENT: meningismus, tenderness, thyromegaly, tracheal deviation Respiratory exam: PRESENT: rales, tachypnea. ABSENT: unlabored Cardiovascular exam: ABSENT: tachycardia Vascular exam: PRESENT: pallor GI/Abdominal exam: PRESENT: soft. ABSENT: distended, tenderness Rectal exam: PRESENT: deferred Extremities exam: ABSENT: clubbing Musculoskeletal exam: ABSENT: deformity Neurological exam: PRESENT: alert, awake, oriented to person, oriented to place, oriented to time, oriented to situation, CN II-XII grossly intact. ABSENT: motor sensory deficit Psychiatric exam: ABSENT: agitated, anxious, depressed Focused psych exam: ABSENT: delusional Skin exam: ABSENT: cyanosis, erythema, jaundice Results Laboratory Results: 01/29/20 07:34 01/29/20 08:05 01/26/20 01/28/20 01/29/20 08:50 22:20 00:30 WBC 11.6 H RBC 2.62 L Hgb 6.8 L Hct 21.3 L MCV 82 D MCH 26.0 L MCHC 31.9 L RDW 15.3 H Plt Count 280 Seg Neutrophils % Not Reportable Sodium Potassium Chloride Carbon Dioxide Anion Gap BUN Creatinine Est GFR ( Amer) Glucose Calcium Magnesium Blood Type A POSITIVE A POSITIVE Antibody Screen NEGATIVE NEGATIVE 01/29/20 01/29/20 07:34 08:05 WBC 13.1 H RBC 3.02 L Hgb 8.0 L Hct 24.3 L MCV 80 MCH 26.3 L MCHC 32.8 RDW 15.6 H Plt Count 307 Seg Neutrophils % Not Reportable Sodium 135.6 L Potassium 4.4 Chloride 109 H Carbon Dioxide 19 L Anion Gap 8 BUN 31 H Creatinine 1.69 H Est GFR ( Amer) 56 L Glucose 72 L Calcium 7.1 L Magnesium 2.1 Blood Type Antibody Screen 01/25/20 05:46 Sputum AFB Smear Concentration - Final 01/25/20 05:46 Sputum Acid Fast Bacilli Smear - Final 01/25/20 18:30 Blood Blood Culture (PCR) - Final Staphylococcus Aureus 01/25/20 18:30 Blood Blood Culture - Final Staphylococcus Aureus 01/25/20 18:45 Blood Blood Culture (PCR) - Final Staphylococcus Aureus 01/25/20 18:45 Blood Blood Culture - Final Staphylococcus Aureus 01/22/20 18:14 Troponin I < 0.012 Impressions: Chest X-Ray 01/22/20 16:26 IMPRESSION: Multicentric opacification the lungs. Likely multicentric pneumonia. Recommend follow-up after treatment. Abdomen/Pelvis CT 01/22/20 19:43 IMPRESSION: 1. Multiple bilateral cavitary nodules throughout both lungs with the largest measuring 4.7 cm and the left lower lobe. This may represent disseminated bacterial or tuberculous infection, immunologic sequela, or neoplastic disease. 2. No urinary stones or hydronephrosis. Skull X-Ray 01/23/20 00:00 IMPRESSION: Radiopaque foreign body in the left face as above. Shoulder X-Ray 01/23/20 09:00 IMPRESSION: No acute findings in the shoulder. Numerous right-sided pulmonary nodules. Lumbar Spine CT 01/25/20 00:00 IMPRESSION: 1. No acute findings visualized in the lumbar spine. No CT evidence of osteomyelitis or discitis. 2. Degenerative changes at L5-S1 with suggestion of mild spinal canal narrowing and moderate to severe bilateral neural foraminal narrowing. Thoracic Spine CT 01/25/20 00:00 IMPRESSION: 1. No acute findings visualized in the thoracic spine. 2. Hypodense lesion in the spleen which is nonspecific on this exam. Given the history of endocarditis, splenic abscess cannot be excluded. If indicated, contrasted CT could be performed for further evaluation. Upper Extremity CT 01/25/20 00:00 IMPRESSION: 1. No acute findings visualized at the right shoulder. 2. Multiple cavitary nodules again visualized in the right lung. Compared to the prior study, there is interval worsening of areas of consolidation in the right lower lobe. There is also a small right pleural effusion. Chest CT 01/27/20 00:00 IMPRESSION: 1. Multiple generally peripheral pulmonary nodules are seen. These are less cavitary than on the earlier study. Many of these are larger. There is a large right pleural effusion and moderate left pleural effusion. There is considerable airspace disease in the right lower lobe, pneumonia versus atelectasis. The overall appearance suggests an atypical infectious/ inflammatory process versus neoplasm. 2. Hepatosplenomegaly. PICC Line Insertion 01/28/20 00:00 IMPRESSION: SUCCESSFUL PLACEMENT OF A 5 FR DUAL LUMEN 37 cm CM PICC IN THE LEFT BASILIC VEIN. Assessment & Plan - Diagnosis (1) Septic embolism Is this a current diagnosis for this admission?: Yes (2) Parapneumonic effusion Is this a current diagnosis for this admission?: Yes - Plan Summary Plan Summary: 34-year-old male with cavitary lesions in the lung, consistent with septic emboli. He has worsening pneumonia and a large parapneumonic effusion on the right. I been consulted for assistance with his parapneumonic effusion. Plan for chest tube today. We will treat the patient with 6 mg of Cathflo and 5 mL of dornase alpha daily x3 days, in an effort to resolve his parapneumonic effusion. Risks and benefits of the procedure were discussed with the patient. Informed consent was obtained, and all questions were answered.
[2020-01-30] MEDS: HEPARIN SOD (PORCINE) 5,000 UNIT/ML 1 ML VIAL SUBCUT SCH ×3 (07:46→22:59)
[2020-01-30] MEDS: RINGERS SOLUTION,LACTATED 1,000 ML IV PRN ×3 (07:47→22:46)
[2020-01-30] MEDS: HYDROMORPHONE HCL INJ/PF 2 MG/ML AMPULE IV PRN ×3 (08:58→20:30)
[2020-01-30 09:07] LABS: HEMATOCRIT 25.7 % (37.9-51.0); HEMOGLOBIN 8.5 g/dL (13.5-17.0); MEAN CORPUSCULAR HEMOGLOBIN 26.3 pg (27.0-33.4); MEAN CORPUSCULAR VOLUME 80 fl (80-97); PLATELET COUNT 414 10^3/uL (150-450); RED BLOOD COUNT 3.22 10^6/uL (4.35-5.55); RED CELL DISTRIBUTION WIDTH 16.1 % (11.5-14.0)
[2020-01-30 09:24] LABS: ALBUMIN 1.7 g/dL (3.5-5.0); ALKALINE PHOSPHATASE 310 U/L (38-126); ANION GAP 5 (5-19); ASPARTATE AMINO TRANSFERASE 25 U/L (17-59); BILIRUBIN,DIRECT 0.8 mg/dL (0.0-0.4); BLOOD UREA NITROGEN 31 mg/dL (7-20); CALCIUM 7.2 mg/dL (8.4-10.2); CARBON DIOXIDE 21 mmol/L (22-30); CHLORIDE 108 mmol/L (98-107); GLUCOSE 81 mg/dL (75-110); POTASSIUM 4.4 mmol/L (3.6-5.0); TOTAL PROTEIN 5.3 g/dL (6.3-8.2)
[2020-01-30 09:39] LABS: ABSOLUTE LYMPHOCYTES# (MANUAL) 2.1 10^3/uL (0.5-4.7); ABSOLUTE MONOCYTES # (MANUAL) 1.1 10^3/uL (0.1-1.4); BASOPHILS % (MANUAL) 0 % (0-2); EOSINOPHILS % (MANUAL) 0 % (0-6); LYMPHOCYTES % (MANUAL) 13 % (13-45); MONOCYTES % (MANUAL) 7 % (3-13); SEGMENTED NEUTROPHILS % (MAN) 80 % (42-78); TOTAL CELLS COUNTED 100
[2020-01-30 09:40] LABS: ANISOCYTOSIS 1+; BURR CELLS 1+; PLATELET COMMENT ADEQUATE; POIKILOCYTOSIS 1+; POLYCHROMASIA 1+; TEAR DROP CELLS 1+
[2020-01-30 09:41] LABS: C-REACTIVE PROTEIN 172.1 mg/L (<10.0)
[2020-01-30] MEDS ORDERED: DORNASE ALFA NEB 2.5 MG/2.5 ML AMPUL NEB PRN (10:02)
[2020-01-30] MEDS: CALCIUM CARBONATE 500 MG TAB.CHEW PO SCH ×4 (10:13→22:45)
[2020-01-30] MEDS: FERROUS SULFATE 325 MG TABLET PO SCH ×2 (10:13→17:07)
[2020-01-30] MEDS ORDERED: ALTEPLASE INJ 2 MG VIAL (CATH CLEARANCE) IV ONE (10:15)
[2020-01-30] MEDS: NORMAL SALINE 10 ML SDV (SCHEDULED) IV SCH ×2 (10:15→22:58)
[2020-01-30] MEDS: NICOTINE 21 MG/24 HR PATCH.TD24 TD SCH (11:35)
[2020-01-30] MEDS: LIDOCAINE 5% (700 MG) TRANSDERMAL ADH..PATCH TP SCH (11:36)
--- NOTE | 2020-01-30 13:17 | PDOC PROGRESS REPORT ---
Subjective Date:: 01/30/20 Subjective:: 34-year-old male with septic emboli to the lungs, and now with large parapneumon ic effusion on the right (along with right lower lobe pneumonia). Patient has had approximately 100 cc of serosanguineous output since yesterday. He appears to be breathing somewhat easier. He denies abdominal pain, melena, hematochezia, hematemesis. He does report chest pain (at the chest tube site), moderate shortness of breath, fevers, chills, nausea, malaise. Reason For Visit: PNEUMONIA,RULE OUT TB,RIGHT SHOULDER PAIN Physical Exam Vital Signs: Temp Pulse Resp BP Pulse Ox 98.9 F 80 18 132/77 H 99 01/30/20 10:00 01/30/20 08:50 01/30/20 08:50 01/30/20 08:50 01/30/20 08:50 Intake & Output 01/29/20 01/30/20 01/31/20 06:59 06:59 06:59 Intake Total 4360 3300 Output Total 400 2145 Balance 3960 1155 Weight 79.3 kg 79.7 kg General appearance: PRESENT: cooperative Head exam: PRESENT: atraumatic, normocephalic Eye exam: PRESENT: EOMI, PERRLA. ABSENT: scleral icterus Mouth exam: PRESENT: moist, neck supple Neck exam: ABSENT: meningismus, tenderness, thyromegaly, tracheal deviation Respiratory exam: PRESENT: tachypnea - Mild, other - Right-sided chest tube in place. No air leak present. Productive of serosanguineous fluid, approximately 100 cc since chest tube insertion. Cardiovascular exam: ABSENT: tachycardia Vascular exam: PRESENT: pallor GI/Abdominal exam: PRESENT: soft. ABSENT: distended, tenderness Rectal exam: PRESENT: deferred Extremities exam: ABSENT: clubbing Musculoskeletal exam: ABSENT: deformity Neurological exam: PRESENT: alert, awake, oriented to person, oriented to place, oriented to time, oriented to situation Psychiatric exam: ABSENT: anxious Focused psych exam: ABSENT: delusional Skin exam: ABSENT: cyanosis, erythema, jaundice Results Laboratory Results: 01/30/20 07:45 01/30/20 07:45 01/30/20 01/30/20 07:45 07:45 WBC 16.0 H RBC 3.22 L Hgb 8.5 L Hct 25.7 L MCV 80 MCH 26.3 L MCHC 33.0 RDW 16.1 H Plt Count 414 Seg Neutrophils % Not Reportable Sodium 134.3 L Potassium 4.4 Chloride 108 H Carbon Dioxide 21 L Anion Gap 5 BUN 31 H Creatinine 2.03 H Est GFR ( Amer) 45 L Glucose 81 Calcium 7.2 L Magnesium 2.0 Total Bilirubin 1.0 AST 25 Alkaline Phosphatase 310 H C-Reactive Protein 172.1 H Total Protein 5.3 L Albumin 1.7 L 01/27/20 18:30 Sputum Gram Stain - Final 01/27/20 18:30 Sputum Sputum Culture - Final Staphylococcus Aureus C.albicans/C.dubliniensis Normal Deirdre 01/22/20 18:14 Troponin I < 0.012 Impressions: Abdomen/Pelvis CT 01/22/20 19:43 IMPRESSION: 1. Multiple bilateral cavitary nodules throughout both lungs with the largest measuring 4.7 cm and the left lower lobe. This may represent disseminated bacterial or tuberculous infection, immunologic sequela, or neoplastic disease. 2. No urinary stones or hydronephrosis. Skull X-Ray 01/23/20 00:00 IMPRESSION: Radiopaque foreign body in the left face as above. Shoulder X-Ray 01/23/20 09:00 IMPRESSION: No acute findings in the shoulder. Numerous right-sided pulmonary nodules. Lumbar Spine CT 01/25/20 00:00 IMPRESSION: 1. No acute findings visualized in the lumbar spine. No CT evidence of osteomyelitis or discitis. 2. Degenerative changes at L5-S1 with suggestion of mild spinal canal narrowing and moderate to severe bilateral neural foraminal narrowing. Thoracic Spine CT 01/25/20 00:00 IMPRESSION: 1. No acute findings visualized in the thoracic spine. 2. Hypodense lesion in the spleen which is nonspecific on this exam. Given the history of endocarditis, splenic abscess cannot be excluded. If indicated, contrasted CT could be performed for further evaluation. Upper Extremity CT 01/25/20 00:00 IMPRESSION: 1. No acute findings visualized at the right shoulder. 2. Multiple cavitary nodules again visualized in the right lung. Compared to the prior study, there is interval worsening of areas of consolidation in the right lower lobe. There is also a small right pleural effusion. Chest CT 01/27/20 00:00 IMPRESSION: 1. Multiple generally peripheral pulmonary nodules are seen. These are less cavitary than on the earlier study. Many of these are larger. There is a large right pleural effusion and moderate left pleural effusion. There is considerable airspace disease in the right lower lobe, pneumonia versus atelectasis. The overall appearance suggests an atypical infectious/ inflammatory process versus neoplasm. 2. Hepatosplenomegaly. PICC Line Insertion 01/28/20 00:00 IMPRESSION: SUCCESSFUL PLACEMENT OF A 5 FR DUAL LUMEN 37 cm CM PICC IN THE LEFT BASILIC VEIN. Chest X-Ray 01/29/20 00:00 IMPRESSION: Cannot exclude multicentric pneumonia. Thoracotomy tube as described. PICC as described. Assessment & Plan - Diagnosis (1) Septic embolism Is this a current diagnosis for this admission?: Yes (2) Parapneumonic effusion Is this a current diagnosis for this admission?: Yes - Time Anticipated Discharge Disposition: unknown Anticipated Discharge Timeframe: unknown - Plan Summary Plan Summary: 34-year-old male status post chest tube insertion for parapneumonic effusion. Plan for administration of dornase alpha and Cathflo via the chest tube today. We will clamp the tube for 4 hours, then repeat tomorrow. This should resolve his parapneumonic infection.
--- NOTE | 2020-01-30 14:19 | PDOC PROGRESS REPORT ---
Subjective Date:: 01/30/20 Subjective:: Patient is laying in bed. Clearly in discomfort. He reports the chest tube was "leaking". He states that the surgeon had done something and was going to come back. He does report that the breathing feels better since placement of the chest tube. 700 mL of cloudy fluid was removed. Reason For Visit: PNEUMONIA,RULE OUT TB,RIGHT SHOULDER PAIN Physical Exam Vital Signs: Temp Pulse Resp BP Pulse Ox 98.9 F 80 18 132/77 H 99 01/30/20 10:00 01/30/20 08:50 01/30/20 08:50 01/30/20 08:50 01/30/20 08:50 Intake & Output 01/29/20 01/30/20 01/31/20 06:59 06:59 06:59 Intake Total 4360 3300 900 Output Total 400 2145 Balance 3960 1155 900 Weight 79.3 kg 79.7 kg 79.7 kg General appearance: PRESENT: severe distress - Patient is resting in bed. Clearly appears to be in moderate to severe discomfort. Chest tube on the right side. Head exam: PRESENT: atraumatic, normocephalic Ear exam: PRESENT: normal external ear exam. ABSENT: bleeding, drainage Respiratory exam: PRESENT: chest wall tenderness, decreased breath sounds - Right base, symmetrical, tachypnea, other - Chest tube right side. ABSENT: rales, rhonchi, wheezes Cardiovascular exam: PRESENT: RRR, +S1, +S2, systolic murmur. ABSENT: bradycardia, diastolic murmur, irregular rhythm, tachycardia GI/Abdominal exam: PRESENT: hypoactive bowel sounds, soft. ABSENT: distended, guarding, tenderness Rectal exam: PRESENT: deferred Gentrourinary exam: ABSENT: indwelling catheter Extremities exam: ABSENT: pedal edema Musculoskeletal exam: PRESENT: ambulatory. ABSENT: deformity, dislocation Neurological exam: PRESENT: alert, awake, oriented to person, oriented to place, oriented to time, oriented to situation, CN II-XII grossly intact. ABSENT: altered Psychiatric exam: PRESENT: anxious, appropriate affect - Affect reflects his discomfort. ABSENT: agitated Focused psych exam: ABSENT: delusional, paranoid, restlessness Skin exam: PRESENT: dry, pallor, warm. ABSENT: rash Results Laboratory Results: 01/30/20 07:45 01/30/20 07:45 01/30/20 01/30/20 07:45 07:45 WBC 16.0 H RBC 3.22 L Hgb 8.5 L Hct 25.7 L MCV 80 MCH 26.3 L MCHC 33.0 RDW 16.1 H Plt Count 414 Seg Neutrophils % Not Reportable Sodium 134.3 L Potassium 4.4 Chloride 108 H Carbon Dioxide 21 L Anion Gap 5 BUN 31 H Creatinine 2.03 H Est GFR ( Amer) 45 L Glucose 81 Calcium 7.2 L Magnesium 2.0 Total Bilirubin 1.0 AST 25 Alkaline Phosphatase 310 H C-Reactive Protein 172.1 H Total Protein 5.3 L Albumin 1.7 L 01/27/20 18:30 Sputum Gram Stain - Final 01/27/20 18:30 Sputum Sputum Culture - Final Staphylococcus Aureus C.albicans/C.dubliniensis Normal Deirdre 01/22/20 18:14 Troponin I < 0.012 Impressions: Abdomen/Pelvis CT 01/22/20 19:43 IMPRESSION: 1. Multiple bilateral cavitary nodules throughout both lungs with the largest measuring 4.7 cm and the left lower lobe. This may represent disseminated bacterial or tuberculous infection, immunologic sequela, or neoplastic disease. 2. No urinary stones or hydronephrosis. Skull X-Ray 01/23/20 00:00 IMPRESSION: Radiopaque foreign body in the left face as above. Shoulder X-Ray 01/23/20 09:00 IMPRESSION: No acute findings in the shoulder. Numerous right-sided pulmonary nodules. Lumbar Spine CT 01/25/20 00:00 IMPRESSION: 1. No acute findings visualized in the lumbar spine. No CT evidence of osteomyelitis or discitis. 2. Degenerative changes at L5-S1 with suggestion of mild spinal canal narrowing and moderate to severe bilateral neural foraminal narrowing. Thoracic Spine CT 01/25/20 00:00 IMPRESSION: 1. No acute findings visualized in the thoracic spine. 2. Hypodense lesion in the spleen which is nonspecific on this exam. Given the history of endocarditis, splenic abscess cannot be excluded. If indicated, contrasted CT could be performed for further evaluation. Upper Extremity CT 01/25/20 00:00 IMPRESSION: 1. No acute findings visualized at the right shoulder. 2. Multiple cavitary nodules again visualized in the right lung. Compared to the prior study, there is interval worsening of areas of consolidation in the right lower lobe. There is also a small right pleural effusion. Chest CT 01/27/20 00:00 IMPRESSION: 1. Multiple generally peripheral pulmonary nodules are seen. The se are less cavitary than on the earlier study. Many of these are larger. There is a large right pleural effusion and moderate left pleural effusion. There is considerable airspace disease in the right lower lobe, pneumonia versus atelectasis. The overall appearance suggests an atypical infectious/ inflammatory process versus neoplasm. 2. Hepatosplenomegaly. PICC Line Insertion 01/28/20 00:00 IMPRESSION: SUCCESSFUL PLACEMENT OF A 5 FR DUAL LUMEN 37 cm CM PICC IN THE LEFT BASILIC VEIN. Chest X-Ray 01/29/20 00:00 IMPRESSION: Cannot exclude multicentric pneumonia. Thoracotomy tube as described. PICC as described. Assessment and Plan - Diagnosis (1) Parapneumonic effusion Is this a current diagnosis for this admission?: Yes (2) Infectious endocarditis Qualifiers: Infective endocarditis organism: bacterial Chronicity: acute Qualified Code(s): I33.0 - Acute and subacute infective endocarditis Is this a current diagnosis for this admission?: Yes (3) Bacteremia due to Staphylococcus aureus Is this a current diagnosis for this admission?: Yes (4) Cavitary pneumonia Is this a current diagnosis for this admission?: Yes (5) Acute kidney injury Is this a current diagnosis for this admission?: Yes (6) Back pain Qualifiers: Back pain location: low back pain Chronicity: acute Back pain laterality: bilateral Sciatica presence: without sciatica Qualified Code(s): M54.5 - Low back pain Is this a current diagnosis for this admission?: Yes (7) Right shoulder pain Qualifiers: Chronicity: acute Qualified Code(s): M25.511 - Pain in right shoulder Is this a current diagnosis for this admission?: Yes (8) Microcytic hypochromic anemia Is this a current diagnosis for this admission?: Yes (9) Hypocalcemia Is this a current diagnosis for this admission?: Yes (10) Hypovitaminosis D Is this a current diagnosis for this admission?: Yes (11) Hypokalemia Is this a current diagnosis for this admission?: Yes (12) IVDU (intravenous drug user) Is this a current diagnosis for this admission?: Yes (13) Opioid dependence Qualifiers: Substance use status: uncomplicated Qualified Code(s): F11.20 - Opioid dependence, uncomplicated Is this a current diagnosis for this admission?: Yes (14) Opioid withdrawal Is this a current diagnosis for this admission?: Yes (15) Hypoalbuminemia Is this a current diagnosis for this admission?: Yes (16) Transaminitis Is this a current diagnosis for this admission?: Yes (17) Tobacco abuse Is this a current diagnosis for this admission?: Yes (18) Malaise and fatigue Is this a current diagnosis for this admission?: Yes (19) Suspected COVID-19 virus infection Is this a current diagnosis for this admission?: Yes (20) Suspected tuberculosis Is this a current diagnosis for this admission?: Yes - Plan Summary Summary: End of treatment 03/08/2020 (1) Infectious endocarditis Qualifiers: Infective endocarditis organism: bacterial Chronicity: acute Qualified Code(s): I33.0 - Acute and subacute infective endocarditis Is this a current diagnosis for this admission?: Yes Plan: History of IVDU Meets modified Adam criteria with 2 major - Consistently positive blood MSSA cultures admission date 01/22/2020 - Echocardiogram normal for tricuspid valve vegetation measuring 3.12 cm x 1.9 cm with mild to moderate tricuspid regurg. - Evidence of multiple septic emboli lungs Received treatment with vancomycin with dosing as per pharmacy 01/22/2020 to 01/25/2020. - Stopped vanc therapy due to elvated vanc trough and onset of ALANIS Pt with persistent bactermia, low-grade fever and climbing WBC count regardless of vanc therapy (1250mg q8hr) Case discussed with Dr. Rodriguez, infectious disease. Note reviewed. - Discontinue vanc - Initiate Nafcillin 12g/day IV q4 (Date initiated 01/26/2020) - Continue therapy for 6 weeks after blood culture cleared With septic emboli the patient may need a longer course of antibiotic treatment 01/28/2020-tolerating nafcillin. 01/29/2020-blood cultures have been consistently negative since 01/26/2020. 6 weeks from this date puts the end of treatment at 03/08/2020. 01/30/2020-no change in end of treatment day (2) Bacteremia due to Staphylococcus aureus Is this a current diagnosis for this admission?: Yes Plan: 01/22/2020 positive blood culture MSSA x2. 01/23/2020 positive blood culture MSSA x2. 01/24/2020 positive blood culture MSSA x2 01/25/2020 culture blood culture MSSA x2 01/25 Repeat culture pending Treatment as above Tolerating nafcillin 01/28/2020-plus positive blood cultures 01/25/2020. Multiple cultures drawn since then. None have been positive. 01/29/2020-end of treatment as noted above (3) Cavitary pneumonia Is this a current diagnosis for this admission?: Yes Plan: ID consulted, appreciate recommendations, note reviewed, case discussed. 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 Consider repeat CT chest to evaluate for empyema if leukocytosis continues to increase. If unrevealing consider tagged WBC scan. Will order CT scan today as patient continues to have hemoptysis 01/28/2020-CT scan revealed bilateral effusions. Much larger on the right. Discussed with Dr. Lake. Patient will be getting a chest tube in the morning. We will know if it is a parapneumonic effusion or empyema. 01/29/2020-see parapneumonic effusion below 01/30/2020-after initial drainage of 700 mL the chest tube is only put out [address] Lake has instilled lytic medication in an effort to thin out any of the secretions and maximize drainage. (4) Acute kidney injury Is this a current diagnosis for this admission?: Yes Plan: BUN/Creatinine 30/1.27 -> 37/1.51 Producing urine. Strict I&Os. Hx recent contrast and vanc therapy. Initiate and continue with aggressive IVF. Continue daily BMP. Avoid all nephritoxic medications. Creatinine improving. Monitor labs. 01/28/2020-serum creatinine bumped slightly. We will continue IV fluids but encourage the patient to drink more liquids. 01/29/2020-continue IV fluids monitoring intake and output and renal function closely 01/30/2020-no significant change today. Continue to monitor. Continue IV fluids. (5) Right shoulder pain Qualifiers: Chronicity: acute Qualified Code(s): M25.511 - Pain in right shoulder Is this a current diagnosis for this admission?: Yes Plan: Unable to obtain MRI (BB in skull) CT RUE without signs osteo. Consider tagged WBC. 01/28/2020-once chest tube is in place and the patient has some relief that we will likely order a tagged white cell study. 01/30/2020-the right shoulder pain could certainly be referred pain from the severe pneumonia in the right lung (6) Back pain Qualifiers: Back pain location: low back pain Chronicity: acute Back pain laterality: bilateral Sciatica presence: without sciatica Qualified Code(s): M54.5 - Low back pain Is this a current diagnosis for this admission?: Yes Plan: Lumbar and thoracic CT witohut evidence osteo. Lidocaine patch. Tylenol. KPad 01/28/2020-K pad ineffective. Some lumbar disc disease especially at L5-S1 with significant narrowing of the bilateral foramen. Certainly not a surgical candidate or candidate for any intervention at this time due to his infection. 01/29/2020-reviewed with the patient. Certain the imaging findings could account for his pain. Continue analgesia. 01/30/2020-continue additional medications with underlying scheduled methadone (7) Microcytic hypochromic anemia Is this a current diagnosis for this admission?: Yes Plan: Hgb downward trend since admission. HGB 7.7 morning labs. Type and screen ordered. Iron studies ordered. Transfuse if <7.0. Hemoglobin is slightly lower today. With increasing hemoptysis will reconsider transfusion. 01/28/2020-hemoglobin was 7.6 with ongoing hemoptysis. The patient will be having a procedure tomorrow. At this time I did opt to transfuse 1 unit of packed red blood cells. 01/29/2020-the patient in fact had a second unit of packed red blood cells. Continue to monitor hemoglobin/hematocrit. 01/30/2020-hemoglobin stable (8) Hypovitaminosis D Is this a current diagnosis for this admission?: Yes Plan: Vitamin D <12.8. Cause of hypocalcemia 7.0. Tx Vitamin D 50,000 once weekly. 01/28/2020-continue vitamin D (9) Hypocalcemia Is this a current diagnosis for this admission?: Yes Plan: Secondary to above. Value corrected due to low albumin = 8.4. Tx: 1gm calcium gluconate IV Continue to monitor calcium. Also consider low albumin 01/28/2020-calcium bicarbonate added at this time. Monitor electrolytes. 01/29/2020-continue oral supplements of calcium and vitamin D. Monitor calcium levels. (10) IVDU (intravenous drug user) Is this a current diagnosis for this admission?: Yes Plan: History of IV drug use most recently used 01/13. Cause of tricuspid infective endocarditis, positive MSSA blood cultures. (11) Opioid dependence Qualifiers: Substance use status: uncomplicated Qualified Code(s): F11.20 - Opioid dependence, uncomplicated Is this a current diagnosis for this admission?: Yes Plan: Historically treated with methadone, more recently Subutex 10mg SL daily. Discontinued Suboxone. Increased methadone to 30 mg every 6 hours. - SR laxative provided for constipation. - Discussed risk of QT prolongation with pt. He is aware and understanding of risk. Patient and myself both agree that benefit > risk. Baseline EKG 01/21 reviewed. QTc 468. Repeat EKG tomorrow, if stable repeat EKG once weekly. 01/28/2020-due to multiple cofactors contributing to his pain I did initiate 1 mg of Dilaudid IV every 6 hours if needed. 01/29/2020-patient reports that 1 mg of IV Dilaudid every 6 hours as needed is very helpful. (12) Opioid withdrawal Is this a current diagnosis for this admission?: Yes Plan: Resolved. 01/30/2020-patient very anxious. Unlikely to be withdrawal due to scheduled narcotic analgesia. Appears to be more of a panic attack. We will institute benzodiazepine therapy. (13) Hypokalemia Is this a current diagnosis for this admission?: Yes Plan: Resolved. Monitor daily electrolytes. (14) Transaminitis Is this a current diagnosis for this admission?: Yes Plan: Patient has elevated enzymes: AST/ALT/alk phos => 109/82/226. Hepatitis panel negative. (15) Hypoalbuminemia Is this a current diagnosis for this admission?: Yes (16) Tobacco abuse Is this a current diagnosis for this admission?: Yes (17) Malaise and fatigue Is this a current diagnosis for this admission?: Yes Plan: As above. (18) Suspected COVID-19 virus infection Is this a current diagnosis for this admission?: Yes Serology negative. COVID-19 ruled out. (19) Suspected tuberculosis Is this a current diagnosis for this admission?: Yes Plan: Ruled out. No further attention needed at this time. (20) Parapneumonic effusion [id number] chest tube placed today by Dr. Laek. Appreciate the intervention. He reported cloudy fluid but definitely not empyema. The patient has been on aggressive antibiotic therapy and fluid was not sent for culture. 01/28/2020- The patient requested that I go back up to his room to further discuss his current condition. In fact brought a computer on wheels into the room and we reviewed his imaging studies. This included the most recent CT scan of the chest as well as elbow x-ray and lumbar spine films. He truly appreciates the depth of his illness. We discussed the multiple treatment options and at this point insertion of the chest tube is primary. Once that is in and helping resolve the fluid collection then consider a tagged white blood cell study. He cannot have an MRI due to foreign object in his eye. Certainly the changes on imaging of the lumbar spine would account for significant back pain. I did increase the pain medicine as noted above. - Time Time Spent with patient: 25-34 minutes Medications reviewed and adjusted accordingly: Yes Anticipated Discharge Disposition: Unknown Anticipated Discharge Timeframe: 03/08/2020
[2020-01-30] MEDS ORDERED: DIAZEPAM INJ 10 MG/2 ML DISP.SYRIN IV PRN (16:49)
--- NOTE | 2020-01-30 17:35 | RADIOLOGY REPORT (SQ) ---
EXAM DESCRIPTION: CHEST SINGLE VIEW IMAGES COMPLETED DATE/TIME: 01/30/2020 3:50 pm REASON FOR STUDY: shortness of breath COMPARISON: 01/29/2020 EXAM PARAMETERS: NUMBER OF VIEWS: One view. TECHNIQUE: Single frontal radiographic view of the chest acquired. RADIATION DOSE: NA LIMITATIONS: None. FINDINGS: LUNGS AND PLEURA: Patchy bibasilar and peripheral opacities, not significantly changed. T race residual right pleural effusion. No pneumothorax. MEDIASTINUM AND HILAR STRUCTURES: No masses. Contour normal. HEART AND VASCULAR STRUCTURES: Heart normal in size. Normal vasculature. BONES: No acute findings. HARDWARE: Left PICC with tip in the mid SVC unchanged. Right chest tube with tip at the right lung a pex unchanged. OTHER: No other significant finding. IMPRESSION: Persistent patchy multifocal opacities and right effusion not significantly changed. Th e right chest tube remains in place. TECHNICAL DOCUMENTATION: JOB ID: [id number] 2010 [employer]- All Rights Reserved Reading location - IP/workstation name: [email or web address]
[2020-01-30] MEDS: ACETAMINOPHEN 325 MG TABLET PO PRN (20:31)
[2020-01-30] MEDS: PHARMACY COMMUNICATION ORDER MC SCH (22:58)
[2020-01-31] MEDS: METHADONE HCL 10 MG TABLET PO SCH ×5 (00:42→23:11)
[2020-01-31] MEDS: NAFCILLIN SODIUM 2 GM in DEXTROSE 5%-WATER 100 ML IV SCH ×6 (02:00→23:07)
[2020-01-31] MEDS: HEPARIN SOD (PORCINE) 5,000 UNIT/ML 1 ML VIAL SUBCUT SCH ×3 (06:38→23:07)
[2020-01-31] MEDS: RINGERS SOLUTION,LACTATED 1,000 ML IV PRN (08:45)
[2020-01-31 09:16] LABS: HEMATOCRIT 25.7 % (37.9-51.0); HEMOGLOBIN 8.5 g/dL (13.5-17.0); MEAN CORPUSCULAR HEMOGLOBIN 26.1 pg (27.0-33.4); MEAN CORPUSCULAR VOLUME 79 fl (80-97); PLATELET COUNT 418 10^3/uL (150-450); RED BLOOD COUNT 3.24 10^6/uL (4.35-5.55); RED CELL DISTRIBUTION WIDTH 16.3 % (11.5-14.0); WHITE BLOOD COUNT 15.7 10^3/uL (4.0-10.5)
[2020-01-31 09:30] LABS: ALBUMIN 1.7 g/dL (3.5-5.0); ANION GAP 5 (5-19); BLOOD UREA NITROGEN 24 mg/dL (7-20); CALCIUM 7.5 mg/dL (8.4-10.2); CARBON DIOXIDE 22 mmol/L (22-30); CHLORIDE 108 mmol/L (98-107); GLUCOSE 101 mg/dL (75-110); PHOSPHORUS 4.4 mg/dL (2.5-4.5)
[2020-01-31 09:51] LABS: ABSOLUTE LYMPHOCYTES# (MANUAL) 1.4 10^3/uL (0.5-4.7); ABSOLUTE MONOCYTES # (MANUAL) 1.1 10^3/uL (0.1-1.4); ANISOCYTOSIS 1+; BASOPHILS % (MANUAL) 0 % (0-2); EOSINOPHILS % (MANUAL) 0 % (0-6); LYMPHOCYTES % (MANUAL) 9 % (13-45); MONOCYTES % (MANUAL) 7 % (3-13); POIKILOCYTOSIS 1+; SEGMENTED NEUTROPHILS % (MAN) 84 % (42-78); TOTAL CELLS COUNTED 100
[2020-01-31 09:52] LABS: PLATELET COMMENT ADEQUATE; POLYCHROMASIA 1+
[2020-01-31] MEDS: NICOTINE 21 MG/24 HR PATCH.TD24 TD SCH (09:58)
[2020-01-31] MEDS: CALCIUM CARBONATE 500 MG TAB.CHEW PO SCH ×4 (09:58→23:10)
[2020-01-31] MEDS: FERROUS SULFATE 325 MG TABLET PO SCH ×2 (09:58→17:26)
[2020-01-31] MEDS: LIDOCAINE 5% (700 MG) TRANSDERMAL ADH..PATCH TP SCH (09:59)
[2020-01-31] MEDS: NORMAL SALINE 10 ML SDV (SCHEDULED) IV SCH ×2 (09:59→23:07)
[2020-01-31] MEDS: HYDROMORPHONE HCL INJ/PF 2 MG/ML AMPULE IV PRN ×2 (09:59→16:44)
--- NOTE | 2020-01-31 11:37 | PDOC PROGRESS REPORT ---
Subjective Date:: 01/31/20 Subjective:: Very sleepy this morning but still with facial grimacing. Reason For Visit: PNEUMONIA,RULE OUT TB,RIGHT SHOULDER PAIN Physical Exam Vital Signs: Temp Pulse Resp BP Pulse Ox 98.6 F 86 18 159/89 H 94 01/31/20 10:00 01/31/20 01:07 01/31/20 01:07 01/31/20 01:07 01/31/20 01:07 Intake & Output 01/30/20 01/31/20 02/01/20 06:59 06:59 06:59 Intake Total 3300 4430 Output Total 2145 650 200 Balance 1155 3780 -200 Weight 79.7 kg 79.5 kg General appearance: PRESENT: mild distress - Mild to moderate distress, well- developed Head exam: PRESENT: atraumatic, normocephalic Eye exam: PRESENT: conjunctiva pale. ABSENT: scleral icterus Ear exam: PRESENT: normal external ear exam. ABSENT: bleeding, drainage Mouth exam: PRESENT: moist, tongue midline Respiratory exam: PRESENT: clear to auscultation jany, other - Chest tube with serosanguineous drainage Cardiovascular exam: PRESENT: RRR, +S1, +S2, systolic murmur. ABSENT: bradycardia, diastolic murmur, irregular rhythm, tachycardia Breast: PRESENT: Other - The patient appears to have gynecomastia-like breast morphology. No galactorrhea noted. GI/Abdominal exam: PRESENT: normal bowel sounds, soft. ABSENT: tenderness Rectal exam: PRESENT: deferred Gentrourinary exam: ABSENT: indwelling catheter Extremities exam: PRESENT: pedal edema Musculoskeletal exam: PRESENT: ambulatory - Albeit with an antalgic gait, normal inspection. ABSENT: deformity, dislocation Neurological exam: PRESENT: awake - Somewhat somnolent but recently medicated. ABSENT: alert, altered Psychiatric exam: ABSENT: agitated, anxious Skin exam: PRESENT: pallor Results Laboratory Results: 01/31/20 08:45 01/31/20 08:45 01/31/20 01/31/20 08:45 08:45 WBC 15.7 H RBC 3.24 L Hgb 8.5 L Hct 25.7 L MCV 79 L MCH 26.1 L MCHC 33.0 RDW 16.3 H Plt Count 418 Seg Neutrophils % Not Reportable Sodium 135.2 L Potassium 4.0 Chloride 108 H Carbon Dioxide 22 Anion Gap 5 BUN 24 H Creatinine 1.77 H Est GFR ( Amer) 53 L Glucose 101 Calcium 7.5 L Phosphorus 4.4 Albumin 1.7 L 01/28/20 19:30 Blood Blood Culture (PCR) - Final Staphylococcus Species 01/27/20 18:30 Sputum Gram Stain - Final 01/27/20 18:30 Sputum Sputum Culture - Final Staphylococcus Aureus C.albicans/C.dubliniensis Normal Deirdre 01/22/20 18:14 Troponin I < 0.012 Impressions: Abdomen/Pelvis CT 01/22/20 19:43 IMPRESSION: 1. Multiple bilateral cavitary nodules throughout both lungs with the largest measuring 4.7 cm and the left lower lobe. This may represent disseminated bacterial or tuberculous infection, immunologic sequela, or neoplastic disease. 2. No urinary stones or hydronephrosis. Skull X-Ray 01/23/20 00:00 IMPRESSION: Radiopaque foreign body in the left face as above. Shoulder X-Ray 01/23/20 09:00 IMPRESSION: No acute findings in the shoulder. Numerous right-sided pulmonary nodules. Lumbar Spine CT 01/25/20 00:00 IMPRESSION: 1. No acute findings visualized in the lumbar spine. No CT evidence of osteomyelitis or discitis. 2. Degenerative changes at L5-S1 with suggestion of mild spinal canal narrowing and moderate to severe bilateral neural foraminal narrowing. Thoracic Spine CT 01/25/20 00:00 IMPRESSION: 1. No acute findings visualized in the thoracic spine. 2. Hypodense lesion in the spleen which is nonspecific on this exam. Given the history of endocarditis, splenic abscess cannot be excluded. If indicated, contrasted CT could be performed for further evaluation. Upper Extremity CT 01/25/20 00:00 IMPRESSION: 1. No acute findings visualized at the right shoulder. 2. Multiple cavitary nodules again visualized in the right lung. Compared to the prior study, there is interval worsening of areas of consolidation in the right lower lobe. There is also a small right pleural effusion. Chest CT 01/27/20 00:00 IMPRESSION: 1. Multiple generally peripheral pulmonary nodules are seen. These are less cavitary than on the earlier study. Many of these are larger. There is a large right pleural effusion and moderate left pleural effusion. There is considerable airspace disease in the right lower lobe, pneumonia versus atelectasis. The overall appearance suggests an atypical infectious/ inflammatory process versus neoplasm. 2. Hepatosplenomegaly. PICC Line Insertion 01/28/20 00:00 IMPRESSION: SUCCESSFUL PLACEMENT OF A 5 FR DUAL LUMEN 37 cm CM PICC IN THE LEFT BASILIC VEIN. Chest X-Ray 01/30/20 00:00 IMPRESSION: Persistent patchy multifocal opacities and right effusion not significantly changed. The right chest tube remains in place. Assessment and Plan - Diagnosis (1) Parapneumonic effusion Is this a current diagnosis for this admission?: Yes (2) Infectious endocarditis Qualifiers: Infective endocarditis organism: bacterial Chronicity: acute Qualified C ode(s): I33.0 - Acute and subacute infective endocarditis Is this a current diagnosis for this admission?: Yes (3) Bacteremia due to Staphylococcus aureus Is this a current diagnosis for this admission?: Yes (4) Cavitary pneumonia Is this a current diagnosis for this admission?: Yes (5) Acute kidney injury Is this a current diagnosis for this admission?: Yes (6) Back pain Qualifiers: Back pain location: low back pain Chronicity: acute Back pain laterality: bilateral Sciatica presence: without sciatica Qualified Code(s): M54.5 - Low back pain Is this a current diagnosis for this admission?: Yes (7) Right shoulder pain Qualifiers: Chronicity: acute Qualified Code(s): M25.511 - Pain in right shoulder Is this a current diagnosis for this admission?: Yes (8) Microcytic hypochromic anemia Is this a current diagnosis for this admission?: Yes (9) Hypocalcemia Is this a current diagnosis for this admission?: Yes (10) Hypovitaminosis D Is this a current diagnosis for this admission?: Yes (11) Hypokalemia Is this a current diagnosis for this admission?: Yes (12) IVDU (intravenous drug user) Is this a current diagnosis for this admission?: Yes (13) Opioid dependence Qualifiers: Substance use status: uncomplicated Qualified Code(s): F11.20 - Opioid dependence, uncomplicated Is this a current diagnosis for this admission?: Yes (14) Opioid withdrawal Is this a current diagnosis for this admission?: Yes (15) Hypoalbuminemia Is this a current diagnosis for this admission?: Yes (16) Transaminitis Is this a current diagnosis for this admission?: Yes (17) Tobacco abuse Is this a current diagnosis for this admission?: Yes (18) Malaise and fatigue Is this a current diagnosis for this admission?: Yes (19) Suspected COVID-19 virus infection Is this a current diagnosis for this admission?: Yes (20) Suspected tuberculosis Is this a current diagnosis for this admission?: Yes (21) Gynecomastia, male Is this a current diagnosis for this admission?: Yes - Plan Summary Summary: End of treatment 03/08/2020 (1) Infectious endocarditis Qualifiers: Infective endocarditis organism: bacterial Chronicity: acute Qualified Code(s): I33.0 - Acute and subacute infective endocarditis Is this a current diagnosis for this admission?: Yes Plan: History of IVDU Meets modified Adam criteria with 2 major - Consistently positive blood MSSA cultures admission date 01/22/2020 - Echocardiogram normal for tricuspid valve vegetation measuring 3.12 cm x 1.9 cm with mild to moderate tricuspid regurg. - Evidence of multiple septic emboli lungs Received treatment with vancomycin with dosing as per pharmacy 01/22/2020 to 01/25/2020. - Stopped vanc therapy due to elvated vanc trough and onset of ALANIS Pt with persistent bactermia, low-grade fever and climbing WBC count regardless of vanc therapy (1250mg q8hr) Case discussed with Dr. Rodriguez, infectious disease. Note reviewed. - Discontinue vanc - Initiate Nafcillin 12g/day IV q4 (Date initiated 01/26/2020) - Continue therapy for 6 weeks after blood culture cleared With septic emboli the patient may need a longer course of antibiotic treatment 01/28/2020-tolerating nafcillin. 01/29/2020-blood cultures have been consistently negative since 01/26/2020. 6 weeks from this date puts the end of treatment at 03/08/2020. 01/30/2020-no change in end of treatment day (2) Bacteremia due to Staphylococcus aureus Is this a current diagnosis for this admission?: Yes Plan: 01/22/2020 positive blood culture MSSA x2. 01/23/2020 positive blood culture MSSA x2. 01/24/2020 positive blood culture MSSA x2 01/25/2020 culture blood culture MSSA x2 01/25 Repeat culture pending Treatment as above Tolerating nafcillin 01/28/2020-plus positive blood cultures 01/25/2020. Multiple cultures drawn since then. None have been positive. 01/29/2020-end of treatment as noted above (3) Cavitary pneumonia Is this a current diagnosis for this admission?: Yes Plan: ID consulted, appreciate recommendations, note reviewed, case discussed. 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 Consider repeat CT chest to evaluate for empyema if leukocytosis continues to increase. If unrevealing consider tagged WBC scan. Will order CT scan today as patient continues to have hemoptysis 01/28/2020-CT scan revealed bilateral effusions. Much larger on the right. Discussed with Dr. Lake. Patient will be getting a chest tube in the morning. We will know if it is a parapneumonic effusion or empyema. 01/29/2020-see parapneumonic effusion below 01/30/2020-after initial drainage of 700 mL the chest tube is only put out [address] Lake has instilled lytic medication in an effort to thin out any of the secretions and maximize drainage. 01/31/2020-additional 200 cc of serosanguineous drainage noted. Surgery plans to discontinue the chest tube when there is less than 50 mL/day output. (4) Acute kidney injury Is this a current diagnosis for this admission?: Yes Plan: BUN/Creatinine 30/1.27 -> 37/1.51 Producing urine. Strict I&Os. Hx recent contrast and vanc therapy. Initiate and continue with aggressive IVF. Continue daily BMP. Avoid all nephritoxic medications. Creatinine improving. Monitor labs. 01/28/2020-serum creatinine bumped slightly. We will continue IV fluids but encourage the patient to drink more liquids. 01/29/2020-continue IV fluids monitoring intake and output and renal function closely 01/30/2020-no significant change today. Continue to monitor. Continue IV fluids. 01/31/2020-due to edema and the possibility of IV fluids contributing to effusion I am going to discontinue the IV fluids. The patient's albumin is only 1.7. I am going to administer albumin and furosemide. We will monitor the intake and output as well as renal function. (5) Right shoulder pain Qualifiers: Chronicity: acute Qualified Code(s): M25.511 - Pain in right shoulder Is this a current diagnosis for this admission?: Yes Plan: Unable to obtain MRI (BB in skull) CT RUE without signs osteo. Consider tagged WBC. 01/28/2020-once chest tube is in place and the patient has some relief that we will likely order a tagged white cell study. 01/30/2020-the right shoulder pain could certainly be referred pain from the severe pneumonia in the right lung (6) Back pain Qualifiers: Back pain location: low back pain Chronicity: acute Back pain laterality: bilateral Sciatica presence: without sciatica Qualified Code(s): M54.5 - Low back pain Is this a current diagnosis for this admission?: Yes Plan: Lumbar and thoracic CT witohut evidence osteo. Lidocaine patch. Tylenol. KPad 01/28/2020-K pad ineffective. Some lumbar disc disease especially at L5-S1 with significant narrowing of the bilateral foramen. Certainly not a surgical candidate or candidate for any intervention at this time due to his infection. 01/29/2020-reviewed with the patient. Certain the imaging findings could account for his pain. Continue analgesia. 01/30/2020-continue additional medications with underlying scheduled methadone (7) Microcytic hypochromic anemia Is this a current diagnosis for this admission?: Yes Plan: Hgb downward trend since admission. HGB 7.7 morning labs. Type and screen ordered. Iron studies ordered. Transfuse if <7.0. Hemoglobin is slightly lower today. With increasing hemoptysis will reconsider transfusion. 01/28/2020-hemoglobin was 7.6 with ongoing hemoptysis. The patient will be having a procedure tomorrow. At this time I did opt to transfuse 1 unit of packed red blood cells. 01/29/2020-the patient in fact had a second unit of packed red blood cells. Continue to monitor hemoglobin/hematocrit. 01/30/2020-hemoglobin stable (8) Hypovitaminosis D Is this a current diagnosis for this admission?: Yes Plan: Vitamin D <12.8. Cause of hypocalcemia 7.0. Tx Vitamin D 50,000 once weekly. 01/28/2020-continue vitamin D (9) Hypocalcemia Is this a current diagnosis for this admission?: Yes Plan: Secondary to above. Value corrected due to low albumin = 8.4. Tx: 1gm calcium gluconate IV Continue to monitor calcium. Also consider low albumin 01/28/2020-calcium bicarbonate added at this time. Monitor electrolytes. 01/29/2020-continue oral supplements of calcium and vitamin D. Monitor calcium levels. (10) IVDU (intravenous drug user) Is this a current diagnosis for this admission?: Yes Plan: History of IV drug use most recently used 01/13. Cause of tricuspid infective endocarditis, positive MSSA blood cultures. (11) Opioid dependence Qualifiers: Substance use status: uncomplicated Qualified Code(s): F11.20 - Opioid dependence, uncomplicated Is this a current diagnosis for this admission?: Yes Plan: Historically treated with methadone, more recently Subutex 10mg SL daily. Discontinued Suboxone. Increased methadone to 30 mg every 6 hours. - SR laxative provided for constipation. - Discussed risk of QT prolongation with pt. He is aware and understanding of risk. Patient and myself both agree that benefit > risk. Baseline EKG 01/21 reviewed. QTc 468. Repeat EKG tomorrow, if stable repeat EKG once weekly. 01/28/2020-due to multiple cofactors contributing to his pain I did initiate 1 mg of Dilaudid IV every 6 hours if needed. 01/29/2020-patient reports that 1 mg of IV Dilaudid every 6 hours as needed is very helpful. (12) Opioid withdrawal Is this a current diagnosis for this admission?: Yes Plan: Resolved. 01/30/2020-patient very anxious. Unlikely to be withdrawal due to scheduled narcotic analgesia. Appears to be more of a panic attack. We will institute benzodiazepine therapy. (13) Hypokalemia Is this a current diagnosis for this admission?: Yes Plan: Resolved. Monitor daily electrolytes. (14) Transaminitis Is this a current diagnosis for this admission?: Yes Plan: Patient has elevated enzymes: AST/ALT/alk phos => 109/82/226. Hepatitis panel negative. (15) Hypoalbuminemia Is this a current diagnosis for this admission?: Yes 01/31/2020-intravenous albumin administration to help with oncotic pressure and diuresis. (16) Tobacco abuse Is this a current diagnosis for this admission?: Yes (17) Malaise and fatigue Is this a current diagnosis for this admission?: Yes Plan: As above. (18) Suspected COVID-19 virus infection Is this a current diagnosis for this admission?: Yes Serology negative. COVID-19 ruled out. (19) Suspected tuberculosis Is this a current diagnosis for this admission?: Yes Plan: Ruled out. No further attention needed at this time. (20) Parapneumonic effusion 01/29/[id number] chest tube placed today by Dr. Lake. Appreciate the intervention. He reported cloudy fluid but definitely not empyema. The patient has been on aggressive antibiotic therapy and fluid was not sent for culture. 01/31/2020-as above (21) Gynecomastia 01/31/2020-with the patient's longstanding opiate use and breast morphology I will check a serum testosterone level. 01/28/2020- The patient requested that I go back up to his room to further discuss his current condition. In fact brought a computer on wheels into the room and we reviewed his imaging studies. This included the most recent CT scan of the chest as well as elbow x-ray and lumbar spine films. He truly appreciates the depth of his illness. We discussed the multiple treatment options and at this point insertion of the chest tube is primary. Once that is in and helping resolve the fluid collection then consider a tagged white blood cell study. He cannot have an MRI due to foreign object in his eye. Certainly the changes on imaging of the lumbar spine would account for significant back pain. I did increase the pain medicine as noted above. - Time Time Spent with patient: 15-24 minutes Medications reviewed and adjusted accordingly: Yes Anticipated Discharge Disposition: Unknown Anticipated Discharge Timeframe: 03/08/2020
[2020-01-31] MEDS: FUROSEMIDE INJ/PF 20 MG/2 ML SDV IV SCH (12:06)
[2020-01-31] MEDS: ALBUMIN HUMAN 12.5 GM/50 ML RTUINJ IV SCH ×2 (12:48→14:53)
--- NOTE | 2020-01-31 13:02 | PDOC PROGRESS REPORT ---
Subjective Date:: 01/31/20 Subjective:: depressed, wants to go home Reason For Visit: PNEUMONIA,RULE OUT TB,RIGHT SHOULDER PAIN Physical Exam Vital Signs: Temp Pulse Resp BP Pulse Ox 99.5 F 83 20 131/81 H 97 01/31/20 11:26 01/31/20 11:26 01/31/20 11:26 01/31/20 11:26 01/31/20 11:26 Intake & Output 01/30/20 01/31/20 02/01/20 06:59 06:59 06:59 Intake Total 3300 4430 607 Output Total 2145 650 200 Balance 1155 3780 407 Weight 79.7 kg 79.5 kg General appearance: PRESENT: no acute distress Head exam: PRESENT: normocephalic Eye exam: PRESENT: EOMI Ear exam: PRESENT: normal external ear exam Mouth exam: PRESENT: moist Neck exam: PRESENT: full ROM Respiratory exam: PRESENT: clear to auscultation jany, other - decreased on rt Cardiovascular exam: PRESENT: RRR Breast: PRESENT: Normal GI/Abdominal exam: PRESENT: soft Rectal exam: PRESENT: deferred Extremities exam: PRESENT: full ROM Neurological exam: PRESENT: alert, awake, oriented to person, oriented to place Psychiatric exam: PRESENT: depressed Skin exam: PRESENT: dry Results Laboratory Results: 01/31/20 08:45 01/31/20 08:45 01/31/20 01/31/20 08:45 08:45 WBC 15.7 H RBC 3.24 L Hgb 8.5 L Hct 25.7 L MCV 79 L MCH 26.1 L MCHC 33.0 RDW 16.3 H Plt Count 418 Seg Neutrophils % Not Reportable Sodium 135.2 L Potassium 4.0 Chloride 108 H Carbon Dioxide 22 Anion Gap 5 BUN 24 H Creatinine 1.77 H Est GFR ( Amer) 53 L Glucose 101 Calcium 7.5 L Phosphorus 4.4 Albumin 1.7 L 01/28/20 19:30 Blood Blood Culture (PCR) - Final Staphylococcus Species 01/27/20 18:30 Sputum Gram Stain - Final 01/27/20 18:30 Sputum Sputum Culture - Final Staphylococcus Aureus C.albicans/C.dubliniensis Normal Deirdre 01/22/20 18:14 Troponin I < 0.012 Impressions: Abdomen/Pelvis CT 01/22/20 19:43 IMPRESSION: 1. Multiple bilateral cavitary nodules throughout both lungs with the largest measuring 4.7 cm and the left lower lobe. This may represent disseminated bacterial or tuberculous infection, immunologic sequela, or neoplastic disease. 2. No urinary stones or hydronephrosis. Skull X-Ray 01/23/20 00:00 IMPRESSION: Radiopaque foreign body in the left face as above. Shoulder X-Ray 01/23/20 09:00 IMPRESSION: No acute findings in the shoulder. Numerous right-sided pulmonary nodules. Lumbar Spine CT 01/25/20 00:00 IMPRESSION: 1. No acute findings visualized in the lumbar spine. No CT evidence of osteomyelitis or discitis. 2. Degenerative changes at L5-S1 with suggestion of mild spinal canal narrowing and moderate to severe bilateral neural foraminal narrowing. Thoracic Spine CT 01/25/20 00:00 IMPRESSION: 1. No acute findings visualized in the thoracic spine. 2. Hypodense lesion in the spleen which is nonspecific on this exam. Given the history of endocarditis, splenic abscess cannot be excluded. If indicated, contrasted CT could be performed for further evaluation. Upper Extremity CT 01/25/20 00:00 IMPRESSION: 1. No acute findings visualized at the right shoulder. 2. Multiple cavitary nodules again visualized in the right lung. Compared to the prior study, there is interval worsening of areas of consolidation in the right lower lobe. There is also a small right pleural effusion. Chest CT 01/27/20 00:00 IMPRESSION: 1. Multiple generally peripheral pulmonary nodules are seen. These are less cavitary than on the earlier study. Many of these are larger. There is a large right pleural effusion and moderate left pleural effusion. There is considerable airspace disease in the right lower lobe, pneumonia versus atelectasis. The overall appearance suggests an atypical infectious/ inflammatory process versus neoplasm. 2. Hepatosplenomegaly. PICC Line Insertion 01/28/20 00:00 IMPRESSION: SUCCESSFUL PLACEMENT OF A 5 FR DUAL LUMEN 37 cm CM PICC IN THE LEFT BASILIC VEIN. Chest X-Ray 01/30/20 00:00 IMPRESSION: Persistent patchy multifocal opacities and right effusion not significantly changed. The right chest tube remains in place. Assessment & Plan - Time Anticipated Discharge Disposition: unk Anticipated Discharge Timeframe: unk - Plan Summary Plan Summary: s/p chest tube placemnt for lung abscess now chest tube on water seal without leak cxr from yesterday did not show leak or ptx however ct still with significant drainage 200cc yesterday plan will cont water seal cxr in am will dc chest tube when op less than 50cc/day.
[2020-01-31] MEDS: DIAZEPAM INJ 10 MG/2 ML DISP.SYRIN IV PRN ×2 (14:53→20:47)
[2020-01-31] MEDS: INDOMETHACIN 25 MG CAPSULE PO SCH (17:27)
[2020-01-31] MEDS: NORMAL SALINE 10 ML SDV (AFTER EACH USE) IV PRN (23:10)
[2020-02-01] MEDS: PHARMACY COMMUNICATION ORDER MC SCH ×2 (02:27→22:44)
[2020-02-01] MEDS: NAFCILLIN SODIUM 2 GM in DEXTROSE 5%-WATER 100 ML IV SCH ×6 (02:35→22:52)
[2020-02-01] MEDS: HEPARIN SOD (PORCINE) 5,000 UNIT/ML 1 ML VIAL SUBCUT SCH ×3 (05:41→22:44)
[2020-02-01] MEDS: INDOMETHACIN 25 MG CAPSULE PO SCH ×3 (05:48→22:53)
[2020-02-01] MEDS: METHADONE HCL 10 MG TABLET PO SCH ×4 (05:48→23:25)
[2020-02-01 06:54] LABS: HEMATOCRIT 25.1 % (37.9-51.0); HEMOGLOBIN 8.4 g/dL (13.5-17.0); MEAN CORPUSCULAR HEMOGLOBIN 26.6 pg (27.0-33.4); MEAN CORPUSCULAR HGB CONC 33.5 g/dL (32.0-36.0); MEAN CORPUSCULAR VOLUME 79 fl (80-97); PLATELET COUNT 399 10^3/uL (150-450); RED BLOOD COUNT 3.16 10^6/uL (4.35-5.55); RED CELL DISTRIBUTION WIDTH 16.7 % (11.5-14.0); WHITE BLOOD COUNT 15.8 10^3/uL (4.0-10.5)
[2020-02-01 07:29] LABS: ALBUMIN 1.8 g/dL (3.5-5.0); ANION GAP 7 (5-19); BLOOD UREA NITROGEN 23 mg/dL (7-20); CALCIUM 7.6 mg/dL (8.4-10.2); CARBON DIOXIDE 22 mmol/L (22-30); CHLORIDE 106 mmol/L (98-107); GLUCOSE 76 mg/dL (75-110); PHOSPHORUS 4.8 mg/dL (2.5-4.5); POTASSIUM 3.8 mmol/L (3.6-5.0)
--- NOTE | 2020-02-01 08:42 | PDOC PROGRESS REPORT ---
Subjective Date:: 02/01/20 Subjective:: weak Reason For Visit: PNEUMONIA,RULE OUT TB,RIGHT SHOULDER PAIN Physical Exam Vital Signs: Temp Pulse Resp BP Pulse Ox 98.7 F 89 20 156/82 H 97 02/01/20 07:52 02/01/20 07:52 02/01/20 07:52 02/01/20 07:52 02/01/20 07:52 Intake & Output 01/31/20 02/01/20 02/02/20 06:59 06:59 06:59 Intake Total 4430 1727 Output Total 720 1700 20 Balance 3710 20 Weight 79.5 kg 85.6 kg General appearance: PRESENT: no acute distress Head exam: PRESENT: normocephalic Eye exam: PRESENT: EOMI Ear exam: PRESENT: normal external ear exam Mouth exam: PRESENT: moist Neck exam: PRESENT: full ROM Respiratory exam: PRESENT: clear to auscultation jany, unlabored Cardiovascular exam: PRESENT: RRR Pulses: PRESENT: normal radial pulses, normal femoral pulses Vascular exam: PRESENT: normal capillary refill Breast: PRESENT: Normal GI/Abdominal exam: PRESENT: soft Rectal exam: PRESENT: deferred Extremities exam: PRESENT: full ROM Musculoskeletal exam: PRESENT: full ROM Neurological exam: PRESENT: awake, oriented to person, oriented to place Psychiatric exam: PRESENT: appropriate affect Skin exam: PRESENT: dry Results Laboratory Results: 02/01/20 05:55 02/01/20 05:55 01/31/20 01/31/20 02/01/20 08:45 08:45 05:55 WBC 15.7 H 15.8 H RBC 3.24 L 3.16 L Hgb 8.5 L 8.4 L Hct 25.7 L 25.1 L MCV 79 L 79 L MCH 26.1 L 26.6 L MCHC 33.0 33.5 RDW 16.3 H 16.7 H Plt Count 418 399 Seg Neutrophils % Not Reportable Sodium 135.2 L Potassium 4.0 Chloride 108 H Carbon Dioxide 22 Anion Gap 5 BUN 24 H Creatinine 1.77 H Est GFR ( Amer) 53 L Glucose 101 Calcium 7.5 L Phosphorus 4.4 Albumin 1.7 L 02/01/20 05:55 WBC RBC Hgb Hct MCV MCH MCHC RDW Plt Count Seg Neutrophils % Sodium 134.6 L Potassium 3.8 Chloride 106 Carbon Dioxide 22 Anion Gap 7 BUN 23 H Creatinine 1.64 H Est GFR ( Amer) 58 L Glucose 76 Calcium 7.6 L Phosphorus 4.8 H Albumin 1.8 L 01/27/20 05:49 Blood Blood Culture - Final NO GROWTH IN 5 DAYS 01/26/20 19:44 Blood Blood Culture - Final NO GROWTH IN 5 DAYS 01/26/20 17:39 Blood Blood Culture - Final NO GROWTH IN 5 DAYS 01/28/20 19:30 Blood Blood Culture (PCR) - Final Staphylococcus Species 01/22/20 18:14 Troponin I < 0.012 Impressions: Abdomen/Pelvis CT 01/22/20 19:43 IMPRESSION: 1. Multiple bilateral cavitary nodules throughout both lungs with the largest measuring 4.7 cm and the left lower lobe. This may represent disseminated bacterial or tuberculous infection, immunologic sequela, or neoplastic disease. 2. No urinary stones or hydronephrosis. Skull X-Ray 01/23/20 00:00 IMPRESSION: Radiopaque foreign body in the left face as above. Shoulder X-Ray 01/23/20 09:00 IMPRESSION: No acute findings in the shoulder. Numerous right-sided pulmonary nodules. Lumbar Spine CT 01/25/20 00:00 IMPRESSION: 1. No acute findings visualized in the lumbar spine. No CT evidence of osteomyelitis or discitis. 2. Degenerative changes at L5-S1 with suggestion of mild spinal canal narrowing and moderate to severe bilateral neural foraminal narrowing. Thoracic Spine CT 01/25/20 00:00 IMPRESSION: 1. No acute findings visualized in the thoracic spine. 2. Hypodense lesion in the spleen which is nonspecific on this exam. Given the history of endocarditis, splenic abscess cannot be excluded. If indicated, contrasted CT could be performed for further evaluation. Upper Extremity CT 01/25/20 00:00 IMPRESSION: 1. No acute findings visualized at the right shoulder. 2. Multiple cavitary nodules again visualized in the right lung. Compared to the prior study, there is interval worsening of areas of consolidation in the right lower lobe. There is also a small right pleural effusion. Chest CT 01/27/20 00:00 IMPRESSION: 1. Multiple generally peripheral pulmonary nodules are seen. These are less cavitary than on the earlier study. Many of these are larger. There is a large right pleural effusion and moderate left pleural effusion. There is considerable airspace disease in the right lower lobe, pneumonia versus atelectasis. The overall appearance suggests an atypical infectious/ inflammatory process versus neoplasm. 2. Hepatosplenomegaly. PICC Line Insertion 01/28/20 00:00 IMPRESSION: SUCCESSFUL PLACEMENT OF A 5 FR DUAL LUMEN 37 cm CM PICC IN THE LEFT BASILIC VEIN. Chest X-Ray 01/30/20 00:00 IMPRESSION: Persistent patchy multifocal opacities and right effusion not significantly changed. The right chest tube remains in place. Assessment & Plan - Time Anticipated Discharge Disposition: Home, Self Care Anticipated Discharge Timeframe: unk - Plan Summary Plan Summary: chest tube output unclear no reliable documentation about amts would not pull ct if he still has high output have ordered a cxr today and have marked his pleuovac with tape to be able to calculate the output would pull ct if output is less than 50cc/day
[2020-02-01] MEDS: HYDROMORPHONE HCL INJ/PF 2 MG/ML AMPULE IV PRN ×3 (08:57→22:53)
[2020-02-01] MEDS: FERROUS SULFATE 325 MG TABLET PO SCH ×2 (08:58→17:35)
[2020-02-01] MEDS: CALCIUM CARBONATE 500 MG TAB.CHEW PO SCH ×4 (08:58→22:53)
[2020-02-01] MEDS: RISPERIDONE 0.25 MG TABLET PO SCH ×2 (09:02→17:36)
[2020-02-01] MEDS: FUROSEMIDE INJ/PF 20 MG/2 ML SDV IV SCH (09:02)
[2020-02-01] MEDS: LIDOCAINE 5% (700 MG) TRANSDERMAL ADH..PATCH TP SCH (09:03)
[2020-02-01] MEDS: NORMAL SALINE 10 ML SDV (SCHEDULED) IV SCH ×2 (09:03→22:53)
[2020-02-01] MEDS: NICOTINE 21 MG/24 HR PATCH.TD24 TD SCH (09:04)
--- NOTE | 2020-02-01 09:29 | RADIOLOGY REPORT (SQ) ---
EXAM DESCRIPTION: CHEST SINGLE VIEW IMAGES COMPLETED DATE/TIME: 02/01/2020 9:17 am REASON FOR STUDY: chest tube in place COMPARISON: Chest films 01/30/2020, 01/29/2020 Chest 01/27/2020 EXAM PARAMETERS: NUMBER OF VIEWS: One view. TECHNIQUE: Single frontal radiographic view of the chest acquired. RADIATION DOSE: NA LIMITATIONS: None. FINDINGS: LUNGS AND PLEURA: Unchanged large bore right chest tube, no pneumothorax no pleural effusi on. Multifocal cavitary infiltrates persist. No gross left pleural effusion or pneumothorax MEDIASTINUM AND HILAR STRUCTURES: No masses. Contour normal. HEART AND VASCULAR STRUCTURES: Heart normal in size. Normal vasculature. BONES: No acute findings. HARDWARE: Left PICC line tip superior vena cava OTHER: No other significant finding. IMPRESSION: Unchanged multifocal cavitary infiltrates Resolved right pleural effusion, right large bore chest tube in place without pneumothorax PICC line superior vena cava TECHNICAL DOCUMENTATION: JOB ID: [id number] 2010 [employer]- All Rights Reserved Reading location - IP/workstation name: [email or web address]
--- NOTE | 2020-02-01 13:05 | PDOC PROGRESS REPORT ---
Subjective Date:: 02/01/20 Subjective:: Reviewed Dr. Mckinnon's note. Patient is actually feeling better today. He walked with physical therapy. When a long discussion about his current situation and depression. We will likely add an antidepressant to his regimen. He seems to be tolerating the low-dose risperidone. We may utilize this as a single agent initially. If this is effective of the Valium. Also try and start decreasing the methadone. Reason For Visit: PNEUMONIA,RULE OUT TB,RIGHT SHOULDER PAIN Physical Exam Vital Signs: Temp Pulse Resp BP Pulse Ox 98.2 F 87 18 136/79 H 98 02/01/20 11:41 02/01/20 11:41 02/01/20 11:41 02/01/20 11:41 02/01/20 11:41 Intake & Output 01/31/20 02/01/20 02/02/20 06:59 06:59 06:59 Intake Total 4430 1727 Output Total 720 1700 20 Balance 3710 27 -20 Weight 79.5 kg 85.6 kg General appearance: PRESENT: no acute distress, cooperative, well-developed Head exam: PRESENT: atraumatic, normocephalic Eye exam: PRESENT: conjunctiva pale. ABSENT: scleral icterus Ear exam: PRESENT: normal external ear exam. ABSENT: bleeding, drainage Mouth exam: PRESENT: moist, tongue midline Respiratory exam: PRESENT: decreased breath sounds - Bilateral bases, rales - Right mid lung field, symmetrical, unlabored, other - Chest tube still with output. Blood-tinged fluid.. ABSENT: rhonchi, stridor, tachypnea, wheezes Cardiovascular exam: PRESENT: RRR, +S1, +S2, systolic murmur. ABSENT: bradycardia, diastolic murmur, irregular rhythm, tachycardia GI/Abdominal exam: PRESENT: normal bowel sounds, soft. ABSENT: distended, guarding, tenderness Rectal exam: PRESENT: deferred Gentrourinary exam: ABSENT: indwelling catheter Extremities exam: ABSENT: pedal edema Musculoskeletal exam: PRESENT: ambulatory, normal inspection. ABSENT: deformity, dislocation Neurological exam: PRESENT: alert, awake, oriented to person, oriented to place, oriented to time, oriented to situation, CN II-XII grossly intact. ABSENT: altered Psychiatric exam: ABSENT: agitated, anxious Focused psych exam: ABSENT: delusional, paranoid, restlessness Skin exam: PRESENT: dry, pallor, warm Results Laboratory Results: 02/01/20 05:55 02/01/20 05:55 02/01/20 02/01/20 05:55 05:55 WBC 15.8 H RBC 3.16 L Hgb 8.4 L Hct 25.1 L MCV 79 L MCH 26.6 L MCHC 33.5 RDW 16.7 H Plt Count 399 Sodium 134.6 L Potassium 3.8 Chloride 106 Carbon Dioxide 22 Anion Gap 7 BUN 23 H Creatinine 1.64 H Est GFR ( Amer) 58 L Glucose 76 Calcium 7.6 L Phosphorus 4.8 H Albumin 1.8 L 01/28/20 19:30 Blood Blood Culture (PCR) - Final Staphylococcus Species 01/27/20 05:49 Blood Blood Culture - Final NO GROWTH IN 5 DAYS 01/26/20 19:44 Blood Blood Culture - Final NO GROWTH IN 5 DAYS 01/26/20 17:39 Blood Blood Culture - Final NO GROWTH IN 5 DAYS 01/22/20 18:14 Troponin I < 0.012 Impressions: Abdomen/Pelvis CT 01/22/20 19:43 IMPRESSION: 1. Multiple bilateral cavitary nodules throughout both lungs with the largest measuring 4.7 cm and the left lower lobe. This may represent disseminated bacterial or tuberculous infection, immunologic sequela, or neoplastic disease. 2. No urinary stones or hydronephrosis. Skull X-Ray 01/23/20 00:00 IMPRESSION: Radiopaque foreign body in the left face as above. Shoulder X-Ray 01/23/20 09:00 IMPRESSION: No acute findings in the shoulder. Numerous right-sided pulmonary nodules. Lumbar Spine CT 01/25/20 00:00 IMPRESSION: 1. No acute findings visualized in the lumbar spine. No CT evidence of osteomyelitis or discitis. 2. Degenerative changes at L5-S1 with suggestion of mild spinal canal narrowing and moderate to severe bilateral neural foraminal narrowing. Thoracic Spine CT 01/25/20 00:00 IMPRESSION: 1. No acute findings visualized in the thoracic spine. 2. Hypodense lesion in the spleen which is nonspecific on this exam. Given the history of endocarditis, splenic abscess cannot be excluded. If indicated, contrasted CT could be performed for further evaluation. Upper Extremity CT 01/25/20 00:00 IMPRESSION: 1. No acute findings visualized at the right shoulder. 2. Multiple cavitary nodules again visualized in the right lung. Compared to the prior study, there is interval worsening of areas of consolidation in the right lower lobe. There is also a small right pleural effusion. Chest CT 01/27/20 00:00 IMPRESSION: 1. Multiple generally peripheral pulmonary nodules are seen. These are less cavitary than on the earlier study. Many of these are larger. There is a large right pleural effusion and moderate left pleural effusion. There is considerable airspace disease in the right lower lobe, pneumonia versus atelectasis. The overall appearance suggests an atypical infectious/ inflammatory process versus neoplasm. 2. Hepatosplenomegaly. PICC Line Insertion 01/28/20 00:00 IMPRESSION: SUCCESSFUL PLACEMENT OF A 5 FR DUAL LUMEN 37 cm CM PICC IN THE LEFT BASILIC VEIN. Chest X-Ray 02/01/20 00:00 IMPRESSION: Unchanged multifocal cavitary infiltrates Resolved right pleural effusion, right large bore chest tube in place without pneumothorax PICC line superior vena cava Assessment and Plan - Diagnosis (1) Parapneumonic effusion Is this a current diagnosis for this admission?: Yes (2) Infectious endocarditis Qualifiers: Infective endocarditis organism: bacterial Chronicity: acute Qualified Code(s): I33.0 - Acute and subacute infective endocarditis Is this a current diagnosis for this admission?: Yes (3) Bacteremia due to Staphylococcus aureus Is this a current diagnosis for this admission?: Yes (4) Cavitary pneumonia Is this a current diagnosis for this admission?: Yes (5) Acute kidney injury Is this a current diagnosis for this admission?: Yes (6) Back pain Qualifiers: Back pain location: low back pain Chronicity: acute Back pain laterality: bilateral Sciatica presence: without sciatica Qualified Code(s): M54.5 - Low back pain Is this a current diagnosis for this admission?: Yes (7) Right shoulder pain Qualifiers: Chronicity: acute Qualified Code(s): M25.511 - Pain in right shoulder Is this a current diagnosis for this admission?: Yes (8) Microcytic hypochromic anemia Is this a current diagnosis for this admission?: Yes (9) Hypocalcemia Is this a current diagnosis for this admission?: Yes (10) Hypovitaminosis D Is this a current diagnosis for this admission?: Yes (11) Hypokalemia Is this a current diagnosis for this admission?: Yes (12) IVDU (intravenous drug user) Is this a current diagnosis for this admission?: Yes (13) Opioid dependence Qualifiers: Substance use status: uncomplicated Qualified Code(s): F11.20 - Opioid dependence, uncomplicated Is this a current diagnosis for this admission?: Yes (14) Opioid withdrawal Is this a current diagnosis for this admission?: Yes (15) Hypoalbuminemia Is this a current diagnosis for this admission?: Yes (16) Transaminitis Is this a current diagnosis for this admission?: Yes (17) Tobacco abuse Is this a current diagnosis for this admission?: Yes (18) Malaise and fatigue Is this a current diagnosis for this admission?: Yes (19) Suspected COVID-19 virus infection Is this a current diagnosis for this admission?: Yes (20) Suspected tuberculosis Is this a current diagnosis for this admission?: Yes (21) Gynecomastia, male Is this a current diagnosis for this admission?: Yes (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 - Evidence of multiple septic emboli lungs Received treatment with vancomycin with dosing as per pharmacy 01/22/2020 to 01/25/2020. - Stopped vanc therapy due to elvated vanc trough and onset of ALANIS Pt with persistent bactermia, low-grade fever and climbing WBC count regardless of vanc therapy (1250mg q8hr) Case discussed with Dr. Rodriguez, infectious disease. Note reviewed. - Discontinue vanc - Initiate Nafcillin 12g/day IV q4 (Date initiated 01/26/2020) - Continue therapy for 6 weeks after blood culture cleared With septic emboli the patient may need a longer course of antibiotic treatment 01/28/2020-tolerating nafcillin. 01/29/2020-blood cultures have been consistently negative since 01/26/2020. 6 weeks from this date puts the end of treatment at 03/08/2020. 01/30/2020-no change in end of treatment day (2) Bacteremia due to Staphylococcus aureus Is this a current diagnosis for this admission?: Yes Plan: 01/22/2020 positive blood culture MSSA x2. 01/23/2020 positive blood culture MSSA x2. 01/24/2020 positive blood culture MSSA x2 01/25/2020 culture blood culture MSSA x2 01/25 Repeat culture pending Treatment as above Tolerating nafcillin 01/28/2020-plus positive blood cultures 01/25/2020. Multiple cultures drawn since then. None have been positive. 01/29/2020-end of treatment as noted above 02/01/2020-transaminases are stable but the alkaline phosphatase level is increasing. Routine monitoring labs for nafcillin include liver, renal and CBC. (3) Cavitary pneumonia Is this a current diagnosis for this admission?: Yes Plan: ID consulted, appreciate recommendations, note reviewed, case discussed. 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 Consider repeat CT chest to evaluate for empyema if leukocytosis continues to increase. If unrevealing consider tagged WBC scan. Will order CT scan today as patient continues to have hemoptysis 01/28/2020-CT scan revealed bilateral effusions. Much larger on the right. Discussed with Dr. Lake. Patient will be getting a chest tube in the morning. We will know if it is a parapneumonic effusion or empyema. 01/29/2020-see parapneumonic effusion below 01/30/2020-after initial drainage of 700 mL the chest tube is only put out [address] Lake has instilled lytic medication in an effort to thin out any of the secretions and maximize drainage. 01/31/2020-additional 200 cc of serosanguineous drainage noted. Surgery plans to discontinue the chest tube when there is less than 50 mL/day output. (4) Acute kidney injury Is this a current diagnosis for this admission?: Yes Plan: BUN/Creatinine 30/1.27 -> 37/1.51 Producing urine. Strict I&Os. Hx recent contrast and vanc therapy. Initiate and continue with aggressive IVF. Continue daily BMP. Avoid all nephritoxic medications. Creatinine improving. Monitor labs. 01/28/2020-serum creatinine bumped slightly. We will continue IV fluids but encourage the patient to drink more liquids. 01/29/2020-continue IV fluids monitoring intake and output and renal function closely 01/30/2020-no significant change today. Continue to monitor. Continue IV fluids. 01/31/2020-due to edema and the possibility of IV fluids contributing to effusion I am going to discontinue the IV fluids. The patient's albumin is only 1.7. I am going to administer albumin and furosemide. We will monitor the intake and output as well as renal function. 02/01/2020-the renal function is slowly improving. With long-term nafcillin administration will need to monitor the function. Serum creatinine is not normal but it was 1 to 2 days prior to starting antibiotic therapy. Urine output is reasonable. Will review with infectious diseases prior to any changes in therapy. (5) Right shoulder pain Qualifiers: Chronicity: acute Qualified Code(s): M25.511 - Pain in right shoulder Is this a current diagnosis for this admission?: Yes Plan: Unable to obtain MRI (BB in skull) CT RUE without signs osteo. Consider tagged WBC. 01/28/2020-once chest tube is in place and the patient has some relief that we will likely order a tagged white cell study. 01/30/2020-the right shoulder pain could certainly be referred pain from the severe pneumonia in the right lung (6) Back pain Qualifiers: Back pain location: low back pain Chronicity: acute Back pain laterality: bilateral Sciatica presence: without sciatica Qualified Code(s): M54.5 - Low back pain Is this a current diagnosis for this admission?: Yes Plan: Lumbar and thoracic CT witohut evidence osteo. Lidocaine patch. Tylenol. KPad 01/28/2020-K pad ineffective. Some lumbar disc disease especially at L5-S1 with significant narrowing of the bilateral foramen. Certainly not a surgical candidate or candidate for any intervention at this time due to his infection. 01/29/2020-reviewed with the patient. Certain the imaging findings could account for his pain. Continue analgesia. 01/30/2020-continue additional medications with underlying scheduled methadone 02/01/2020-patient walked with physical therapy earlier today and did quite well. He does report that his back pain is better. I will encourage ongoing ambulation. (7) Microcytic hypochromic anemia Is this a current diagnosis for this admission?: Yes Plan: Hgb downward trend since admission. HGB 7.7 morning labs. Type and screen ordered. Iron studies ordered. Transfuse if <7.0. Hemoglobin is slightly lower today. With increasing hemoptysis will reconsider transfusion. 01/28/2020-hemoglobin was 7.6 with ongoing hemoptysis. The patient will be having a procedure tomorrow. At this time I did opt to transfuse 1 unit of packed red blood cells. 01/29/2020-the patient in fact had a second unit of packed red blood cells. Continue to monitor hemoglobin/hematocrit. 01/30/2020-hemoglobin stable 02/01/2020-hemoglobin is still between 8 and 9. Continue to monitor. Will reduce the laboratory studies as well. (8) Hypovitaminosis D Is this a current diagnosis for this admission?: Yes Plan: Vitamin D <12.8. Cause of hypocalcemia 7.0. Tx Vitamin D 50,000 once weekly. 01/28/2020-continue vitamin D (9) Hypocalcemia Is this a current diagnosis for this admission?: Yes Plan: Secondary to above. Value corrected due to low albumin = 8.4. Tx: 1gm calcium gluconate IV Continue to monitor calcium. Also consider low albumin 01/28/2020-calcium bicarbonate added at this time. Monitor electrolytes. 01/29/2020-continue oral supplements of calcium and vitamin D. Monitor calcium levels. (10) IVDU (intravenous drug user) Is this a current diagnosis for this admission?: Yes Plan: History of IV drug use most recently used 01/13. Cause of tricuspid infective endocarditis, positive MSSA blood cultures. (11) Opioid dependence Qualifiers: Substance use status: uncomplicated Qualified Code(s): F11.20 - Opioid dependence, uncomplicated Is this a current diagnosis for this admission?: Yes Plan: Historically treated with methadone, more recently Subutex 10mg SL daily. Discontinued Suboxone. Increased methadone to 30 mg every 6 hours. - SR laxative provided for constipation. - Discussed risk of QT prolongation with pt. He is aware and understanding of risk. Patient and myself both agree that benefit > risk. Baseline EKG 01/21 reviewed. QTc 468. Repeat EKG tomorrow, if stable repeat EKG once weekly. 01/28/2020-due to multiple cofactors contributing to his pain I did initiate 1 mg of Dilaudid IV every 6 hours if needed. 01/29/2020-patient reports that 1 mg of IV Dilaudid every 6 hours as needed is very helpful. (12) Opioid withdrawal Is this a current diagnosis for this admission?: Yes Plan: Resolved. 01/30/2020-patient very anxious. Unlikely to be withdrawal due to scheduled narcotic analgesia. Appears to be more of a panic attack. We will institute benzodiazepine therapy. (13) Hypokalemia Is this a current diagnosis for this admission?: Yes Plan: Resolved. Monitor daily electrolytes. (14) Transaminitis Is this a current diagnosis for this admission?: Yes Plan: Patient has elevated enzymes: AST/ALT/alk phos => 109/82/226. Hepatitis panel negative. (15) Hypoalbuminemia Is this a current diagnosis for this admission?: Yes 01/31/2020-intravenous albumin administration to help with oncotic pressure and diuresis. (16) Tobacco abuse Is this a current diagnosis for this admission?: Yes (17) Malaise and fatigue Is this a current diagnosis for this admission?: Yes Plan: As above. (18) Suspected COVID-19 virus infection Is this a current diagnosis for this admission?: Yes Serology negative. COVID-19 ruled out. (19) Suspected tuberculosis Is this a current diagnosis for this admission?: Yes Plan: Ruled out. No further attention needed at this time. (20) Parapneumonic effusion 01/29/[id number] chest tube placed today by Dr. Lake. Appreciate the intervention. He reported cloudy fluid but definitely not empyema. The patient has been on aggressive antibiotic therapy and fluid was not sent for culture. 01/31/2020-as above 02/01/2020-appreciate Dr. Mckinnon's input. When chest tube output is less than 50 cc in a 24-hour period we can DC the chest tube. (21) Gynecomastia 01/31/2020-with the patient's longstanding opiate use and breast morphology I will check a serum testosterone level. 02/01/2020-awaiting chemistry results. This certainly would be a correctable abnormality and could be contributing to depression and lack of energy since his cortisol level was normal. 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 He is exhibiting emotional lability and anxiety. It is not surprising that with the level of illness and prolonged hospitalization he would get depressed. There are also emotional concerns in patients with prolonged narcotic use. 01/28/2020- The patient requested that I go back up to his room to further discuss his current condition. In fact brought a computer on wheels into the room and we reviewed his imaging studies. This included the most recent CT scan of the chest as well as elbow x-ray and lumbar spine films. He truly appreciates the depth of his illness. We discussed the multiple treatment options and at this point insertion of the chest tube is primary. Once that is in and helping res olve the fluid collection then consider a tagged white blood cell study. He cannot have an MRI due to foreign object in his eye. Certainly the changes on imaging of the lumbar spine would account for significant back pain. I did increase the pain medicine as noted above. - Time Time Spent with patient: 15-24 minutes Medications reviewed and adjusted accordingly: Yes Anticipated Discharge Disposition: Unknown Anticipated Discharge Timeframe: 03/08/2020
[2020-02-02] MEDS: NAFCILLIN SODIUM 2 GM in DEXTROSE 5%-WATER 100 ML IV SCH ×5 (02:04→17:21)
[2020-02-02] MEDS: NORMAL SALINE 10 ML SDV (AFTER EACH USE) IV PRN (05:45)
[2020-02-02] MEDS: METHADONE HCL 10 MG TABLET PO SCH ×3 (05:45→17:22)
[2020-02-02] MEDS: INDOMETHACIN 25 MG CAPSULE PO SCH ×2 (05:45→14:14)
[2020-02-02] MEDS: HEPARIN SOD (PORCINE) 5,000 UNIT/ML 1 ML VIAL SUBCUT SCH ×2 (06:33→14:14)
[2020-02-02] MEDS: FUROSEMIDE INJ/PF 20 MG/2 ML SDV IV SCH (10:34)
[2020-02-02] MEDS: FERROUS SULFATE 325 MG TABLET PO SCH ×2 (10:34→17:23)
[2020-02-02] MEDS: NICOTINE 21 MG/24 HR PATCH.TD24 TD SCH (10:34)
[2020-02-02] MEDS: HYDROMORPHONE HCL INJ/PF 2 MG/ML AMPULE IV PRN (10:50)
[2020-02-02] MEDS: CALCIUM CARBONATE 500 MG TAB.CHEW PO SCH ×3 (10:53→17:22)
[2020-02-02] MEDS: LIDOCAINE 5% (700 MG) TRANSDERMAL ADH..PATCH TP SCH (10:54)
[2020-02-02] MEDS: RISPERIDONE 0.25 MG TABLET PO SCH ×2 (10:54→17:22)
[2020-02-02] MEDS: NORMAL SALINE 10 ML SDV (SCHEDULED) IV SCH (10:54)
[2020-02-02] MEDS: ACETAMINOPHEN 325 MG TABLET PO PRN (12:41)
--- NOTE | 2020-02-02 13:06 | PDOC PROGRESS REPORT ---
Subjective Date:: 02/02/20 Subjective:: The patient is very stressed. He reports that his father has not been paying the mortgage on the house in the bank/mortgage company is going to repossessed. He needs to remove all of the family belongings. He also has several pets in the house. He inquired about outpatient therapy. His chest tube is supposed to remove later today. Reason For Visit: PNEUMONIA,RULE OUT TB,RIGHT SHOULDER PAIN Physical Exam Vital Signs: Temp Pulse Resp BP Pulse Ox 98.5 F 82 18 133/88 H 96 02/02/20 07:49 02/02/20 07:49 02/02/20 07:49 02/02/20 07:49 02/02/20 07:49 Intake & Output 02/01/20 02/02/20 02/03/20 06:59 06:59 06:59 Intake Total 1727 1880 240 Output Total 1700 2170 Balance 27 -290 240 Weight 85.6 kg 86.7 kg General appearance: PRESENT: cooperative, well-developed Head exam: PRESENT: atraumatic, normocephalic Ear exam: PRESENT: normal external ear exam. ABSENT: bleeding, drainage Mouth exam: PRESENT: moist, tongue midline Respiratory exam: PRESENT: clear to auscultation jany - anteriorly, symmetrical, unlabored. ABSENT: rales, rhonchi, tachypnea, wheezes Cardiovascular exam: PRESENT: RRR, +S1, +S2, systolic murmur. ABSENT: bradycardia, diastolic murmur, irregular rhythm, tachycardia GI/Abdominal exam: PRESENT: normal bowel sounds, soft. ABSENT: distended, guarding, tenderness Rectal exam: PRESENT: deferred Gentrourinary exam: ABSENT: indwelling catheter Extremities exam: ABSENT: pedal edema Musculoskeletal exam: PRESENT: ambulatory, normal inspection. ABSENT: deformity, dislocation Neurological exam: PRESENT: alert, awake, oriented to person, oriented to place, oriented to time, oriented to situation, CN II-XII grossly intact. ABSENT: altered Psychiatric exam: PRESENT: anxious - Extremely anxious as noted above. Upset with the current situation. Results Laboratory Results: 02/01/20 05:55 02/01/20 05:55 01/28/20 19:30 Blood Blood Culture (PCR) - Final Staphylococcus Species 01/28/20 19:30 Blood Blood Culture - Final Staphylococcus Epidermidis Corynebacterium Species 01/28/20 07:20 Blood Blood Culture - Final NO GROWTH IN 5 DAYS 01/22/20 18:14 Troponin I < 0.012 Impressions: Abdomen/Pelvis CT 01/22/20 19:43 IMPRESSION: 1. Multiple bilateral cavitary nodules throughout both lungs with the largest measuring 4.7 cm and the left lower lobe. This may represent disseminated bacterial or tuberculous infection, immunologic sequela, or neoplastic disease. 2. No urinary stones or hydronephrosis. Skull X-Ray 01/23/20 00:00 IMPRESSION: Radiopaque foreign body in the left face as above. Shoulder X-Ray 01/23/20 09:00 IMPRESSION: No acute findings in the shoulder. Numerous right-sided pulmonary nodules. Lumbar Spine CT 01/25/20 00:00 IMPRESSION: 1. No acute findings visualized in the lumbar spine. No CT evidence of osteomyelitis or discitis. 2. Degenerative changes at L5-S1 with suggestion of mild spinal canal narrowing and moderate to severe bilateral neural foraminal narrowing. Thoracic Spine CT 01/25/20 00:00 IMPRESSION: 1. No acute findings visualized in the thoracic spine. 2. Hypodense lesion in the spleen which is nonspecific on this exam. Given the history of endocarditis, splenic abscess cannot be excluded. If indicated, contrasted CT could be performed for further evaluation. Upper Extremity CT 01/25/20 00:00 IMPRESSION: 1. No acute findings visualized at the right shoulder. 2. Multiple cavitary nodules again visualized in the right lung. Compared to the prior study, there is interval worsening of areas of consolidation in the right lower lobe. There is also a small right pleural effusion. Chest CT 01/27/20 00:00 IMPRESSION: 1. Multiple generally peripheral pulmonary nodules are seen. These are less cavitary than on the earlier study. Many of these are larger. There is a large right pleural effusion and moderate left pleural effusion. There is considerable airspace disease in the right lower lobe, pneumonia versus atelectasis. The overall appearance suggests an atypical infectious/ inflammatory process versus neoplasm. 2. Hepatosplenomegaly. PICC Line Insertion 01/28/20 00:00 IMPRESSION: SUCCESSFUL PLACEMENT OF A 5 FR DUAL LUMEN 37 cm CM PICC IN THE LEFT BASILIC VEIN. Chest X-Ray 02/01/20 00:00 IMPRESSION: Unchanged multifocal cavitary infiltrates Resolved right pleural effusion, right large bore chest tube in place without pneumothorax PICC line superior vena cava Assessment and Plan - Diagnosis (1) Parapneumonic effusion Is this a current diagnosis for this admission?: Yes (2) Infectious endocarditis Qualifiers: Infective endocarditis organism: bacterial Chronicity: acute Qualified Code(s): I33.0 - Acute and subacute infective endocarditis Is this a current diagnosis for this admission?: Yes (3) Bacteremia due to Staphylococcus aureus Is this a current diagnosis for this admission?: Yes (4) Cavitary pneumonia Is this a current diagnosis for this admission?: Yes (5) Acute kidney injury Is this a current diagnosis for this admission?: Yes (6) Back pain Qualifiers: Back pain location: low back pain Chronicity: acute Back pain laterality: bilateral Sciatica presence: without sciatica Qualified Code(s): M54.5 - Low back pain Is this a current diagnosis for this admission?: Yes (7) Right shoulder pain Qualifiers: Chronicity: acute Qualified Code(s): M25.511 - Pain in right shoulder Is this a current diagnosis for this admission?: Yes (8) Microcytic hypochromic anemia Is this a current diagnosis for this admission?: Yes (9) Hypocalcemia Is this a current diagnosis for this admission?: Yes (10) Hypovitaminosis D Is this a current diagnosis for this admission?: Yes (11) Hypokalemia Is this a current diagnosis for this admission?: Yes (12) IVDU (intravenous drug user) Is this a current diagnosis for this admission?: Yes (13) Opioid dependence Qualifiers: Substance use status: uncomplicated Qualified Code(s): F11.20 - Opioid dependence, uncomplicated Is this a current diagnosis for this admission?: Yes (14) Opioid withdrawal Is this a current diagnosis for this admission?: Yes (15) Hypoalbuminemia Is this a current diagnosis for this admission?: Yes (16) Transaminitis Is this a current diagnosis for this admission?: Yes (17) Tobacco abuse Is this a current diagnosis for this admission?: Yes (18) Malaise and fatigue Is this a current diagnosis for this admission?: Yes (19) Suspected COVID-19 virus infection Is this a current diagnosis for this admission?: Yes (20) Suspected tuberculosis Is this a current diagnosis for this admission?: Yes (21) Gynecomastia, male Is this a current diagnosis for this admission?: Yes (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 - Evidence of multiple septic emboli lungs Received treatment with vancomycin with dosing as per pharmacy 01/22/2020 to 01/25/2020. - Stopped vanc therapy due to elvated vanc trough and onset of ALANIS Pt with persistent bactermia, low-grade fever and climbing WBC count regardless of vanc therapy (1250mg q8hr) Case discussed with Dr. Rodriguez, infectious disease. Note reviewed. - Discontinue vanc - Initiate Nafcillin 12g/day IV q4 (Date initiated 01/26/2020) - Continue therapy for 6 weeks after blood culture cleared With septic emboli the patient may need a longer course of antibiotic treatment 01/28/2020-tolerating nafcillin. 01/29/2020-blood cultures have been consistently negative since 01/26/2020. 6 weeks from this date puts the end of treatment at 03/08/2020. 01/30/2020-no change in end of treatment day 02/02/2020-tolerating nafcillin. Continue weekly monitoring. (2) Bacteremia due to Staphylococcus aureus Is this a current diagnosis for this admission?: Yes Plan: 01/22/2020 positive blood culture MSSA x2. 01/23/2020 positive blood culture MSSA x2. 01/24/2020 positive blood culture MSSA x2 01/25/2020 culture blood culture MSSA x2 01/25 Repeat culture pending Treatment as above Tolerating nafcillin 01/28/2020-plus positive blood cultures 01/25/2020. Multiple cultures drawn since then. None have been positive. 01/29/2020-end of treatment as noted above 02/01/2020-transaminases are stable but the alkaline phosphatase level is increasing. Routine monitoring labs for nafcillin include liver, renal and CBC. 02/02/2020-we will recheck labs tomorrow (3) Cavitary pneumonia Is this a current diagnosis for this admission?: Yes Plan: ID consulted, appreciate recommendations, note reviewed, case discussed. 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 Consider repeat CT chest to evaluate for empyema if leukocytosis continues to increase. If unrevealing consider tagged WBC scan. Will order CT scan today as patient continues to have hemoptysis 01/28/2020-CT scan revealed bilateral effusions. Much larger on the right. Discussed with Dr. Lake. Patient will be getting a chest tube in the morning. We will know if it is a parapneumonic effusion or empyema. 01/29/2020-see parapneumonic effusion below 01/30/2020-after initial drainage of 700 mL the chest tube is only put out [address] Lake has instilled lytic medication in an effort to thin out any of the secretions and maximize drainage. 01/31/2020-additional 200 cc of serosanguineous drainage noted. Surgery plans to discontinue the chest tube when there is less than 50 mL/day output. 02/02/2020-output is decreased. Surgery likely to remove the chest tube later today. (4) Acute kidney injury Is this a current diagnosis for this admission?: Yes Plan: BUN/Creatinine 30/1.27 -> 37/1.51 Producing urine. Strict I&Os. Hx recent contrast and vanc therapy. Initiate and continue with aggressive IVF. Continue daily BMP. Avoid all nephritoxic medications. Creatinine improving. Monitor labs. 01/28/2020-serum creatinine bumped slightly. We will continue IV fluids but encourage the patient to drink more liquids. 01/29/2020-continue IV fluids monitoring intake and output and renal function closely 01/30/2020-no significant change today. Continue to monitor. Continue IV fluids. 01/31/2020-due to edema and the possibility of IV fluids contributing to effusi on I am going to discontinue the IV fluids. The patient's albumin is only 1.7. I am going to administer albumin and furosemide. We will monitor the intake and output as well as renal function. 02/01/2020-the renal function is slowly improving. With long-term nafcillin administration will need to monitor the function. Serum creatinine is not normal but it was 1 to 2 days prior to starting antibiotic therapy. Urine output is reasonable. Will review with infectious diseases prior to any changes in therapy. 02/02/2020-recheck serum chemistries tomorrow (5) Right shoulder pain Qualifiers: Chronicity: acute Qualified Code(s): M25.511 - Pain in right shoulder Is this a current diagnosis for this admission?: Yes Plan: Unable to obtain MRI (BB in skull) CT RUE without signs osteo. Consider tagged WBC. 01/28/2020-once chest tube is in place and the patient has some relief that we will likely order a tagged white cell study. 01/30/2020-the right shoulder pain could certainly be referred pain from the severe pneumonia in the right lung (6) Back pain Qualifiers: Back pain location: low back pain Chronicity: acute Back pain laterality: bilateral Sciatica presence: without sciatica Qualified Code(s): M54.5 - Low back pain Is this a current diagnosis for this admission?: Yes Plan: Lumbar and thoracic CT witohut evidence osteo. Lidocaine patch. Tylenol. KPad 01/28/2020-K pad ineffective. Some lumbar disc disease especially at L5-S1 with significant narrowing of the bilateral foramen. Certainly not a surgical candidate or candidate for any intervention at this time due to his infection. 01/29/2020-reviewed with the patient. Certain the imaging findings could account for his pain. Continue analgesia. 01/30/2020-continue additional medications with underlying scheduled methadone 02/01/2020-patient walked with physical therapy earlier today and did quite well. He does report that his back pain is better. I will encourage ongoing ambulation. 02/02/2020-patient is going to ambulate again today. This helps the back. (7) Microcytic hypochromic anemia Is this a current diagnosis for this admission?: Yes Plan: Hgb downward trend since admission. HGB 7.7 morning labs. Type and screen ordered. Iron studies ordered. Transfuse if <7.0. Hemoglobin is slightly lower today. With increasing hemoptysis will reconsider transfusion. 01/28/2020-hemoglobin was 7.6 with ongoing hemoptysis. The patient will be having a procedure tomorrow. At this time I did opt to transfuse 1 unit of packed red blood cells. 01/29/2020-the patient in fact had a second unit of packed red blood cells. Continue to monitor hemoglobin/hematocrit. 01/30/2020-hemoglobin stable 02/01/2020-hemoglobin is still between 8 and 9. Continue to monitor. Will reduce the laboratory studies as well. (8) Hypovitaminosis D Is this a current diagnosis for this admission?: Yes Plan: Vitamin D <12.8. Cause of hypocalcemia 7.0. Tx Vitamin D 50,000 once weekly. 01/28/2020-continue vitamin D (9) Hypocalcemia Is this a current diagnosis for this admission?: Yes Plan: Secondary to above. Value corrected due to low albumin = 8.4. Tx: 1gm calcium gluconate IV Continue to monitor calcium. Also consider low albumin 01/28/2020-calcium bicarbonate added at this time. Monitor electrolytes. 01/29/2020-continue oral supplements of calcium and vitamin D. Monitor calcium levels. (10) IVDU (intravenous drug user) Is this a current diagnosis for this admission?: Yes Plan: History of IV drug use most recently used 01/13. Cause of tricuspid infective endocarditis, positive MSSA blood cultures. (11) Opioid dependence Qualifiers: Substance use status: uncomplicated Qualified Code(s): F11.20 - Opioid dependence, uncomplicated Is this a current diagnosis for this admission?: Yes Plan: Historically treated with methadone, more recently Subutex 10mg SL daily. Discontinued Suboxone. Increased methadone to 30 mg every 6 hours. - SR laxative provided for constipation. - Discussed risk of QT prolongation with pt. He is aware and understanding of risk. Patient and myself both agree that benefit > risk. Baseline EKG 01/21 reviewed. QTc 468. Repeat EKG tomorrow, if stable repeat EKG once weekly. 01/28/2020-due to multiple cofactors contributing to his pain I did initiate 1 mg of Dilaudid IV every 6 hours if needed. 01/29/2020-patient reports that 1 mg of IV Dilaudid every 6 hours as needed is very helpful. (12) Opioid withdrawal Is this a current diagnosis for this admission?: Yes Plan: Resolved. 01/30/2020-patient very anxious. Unlikely to be withdrawal due to scheduled narcotic analgesia. Appears to be more of a panic attack. We will institute benzodiazepine therapy. (13) Hypokalemia Is this a current diagnosis for this admission?: Yes Plan: Resolved. Monitor daily electrolytes. (14) Transaminitis Is this a current diagnosis for this admission?: Yes Plan: Patient has elevated enzymes: AST/ALT/alk phos => 109/82/226. Hepatitis panel negative. (15) Hypoalbuminemia Is this a current diagnosis for this admission?: Yes 01/31/2020-intravenous albumin administration to help with oncotic pressure and diuresis. (16) Tobacco abuse Is this a current diagnosis for this admission?: Yes (17) Malaise and fatigue Is this a current diagnosis for this admission?: Yes Plan: As above. (18) Suspected COVID-19 virus infection Is this a current diagnosis for this admission?: Yes Serology negative. COVID-19 ruled out. (19) Suspected tuberculosis Is this a current diagnosis for this admission?: Yes Plan: Ruled out. No further attention needed at this time. (20) Parapneumonic effusion 01/29/20206538-wssnx-tursl chest tube placed today by Dr. Lake. Appreciate the intervention. He reported cloudy fluid but definitely not empyema. The patient has been on aggressive antibiotic therapy and fluid was not sent for culture. 01/31/2020-as above 02/01/2020-appreciate Dr. Mckinnon's input. When chest tube output is less than 50 cc in a 24-hour period we can DC the chest tube. 02/02/2020-output is down. Surgery to remove the chest tube later today. (21) Gynecomastia 01/31/2020-with the patient's longstanding opiate use and breast morphology I will check a serum testosterone level. 02/01/2020-awaiting chemistry results. This certainly would be a correctable abnormality and could be contributing to depression and lack of energy since his cortisol level was normal. 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 He is exhibiting emotional lability and anxiety. It is not surprising that with the level of illness and prolonged hospitalization he would get depressed. There are also emotional concerns in patients with prolonged narcotic use. 02/02/2020-appears to be improved with Risperdal. We will consider adding SSRI or NSSRI 01/28/2020- The patient requested that I go back up to his room to further discuss his current condition. In fact brought a computer on wheels into the room and we reviewed his imaging studies. This included the most recent CT scan of the chest as well as elbow x-ray and lumbar spine films. He truly appreciates the depth of his illness. We discussed the multiple treatment options and at this point insertion of the chest tube is primary. Once that is in and helping resolve the fluid collection then consider a tagged white blood cell study. He cannot have an MRI due to foreign object in his eye. Certainly the changes on imaging of the lumbar spine would account for significant back pain. I did increase the pain medicine as noted above. 02/02/2020- The patient's nurse reported that the patient wished to leave. When I question the patient he had multiple reasons as noted above. He states that he typically is responsible for paying the mortgage. He then stated that his father, who may have early dementia, has not been paying for many months. He is in [place]. The patient states that he needs to go home because they are going to floor close on the house and in fact he needs to remove the belongings. He states people of it breaking into his house. He has several pets in a states that friends are supposed to be looking after the pets but he needs to check. I e xplained to the patient that he really should not leave. If he leaves he significantly endangers himself. He really inquired about outpatient therapy but with his IV drug use we will not be discharging him with his PICC line or considering outpatient infusion therapy. I explained to him that oral antibiotics would be ineffective and because his nafcillin is every 4 hours outpatient infusion therapy is not practical either. I strongly encouraged the patient to stay. - Time Time Spent with patient: 25-34 minutes Medications reviewed and adjusted accordingly: Yes Anticipated Discharge Disposition: Home, Self Care Anticipated Discharge Timeframe: 03/08/2020
[2020-02-02] MEDS: DIAZEPAM INJ 10 MG/2 ML DISP.SYRIN IV PRN (15:12)
--- NOTE | 2020-02-02 15:45 | Operative Report ---
Operative Report DATE OF SURGERY: 02/02/20 PREOPERATIVE DIAGNOSIS: Right parapneumonic effusion POSTOPERATIVE DIAGNOSIS: Same OPERATION: Removal of right thoracostomy tube SURGEON: GAVIN SARMIENTO ANESTHESIA: Other - None TISSUE REMOVED OR ALTERED: None ESTIMATED BLOOD LOSS: Scant INTRAOPERATIVE FINDINGS: See below PROCEDURE: Indications: The patient had a right thoracostomy tube placed by Dr. Lake approximately 4 days ago. Drainage was serosanguineous in nature, with decreasing viscosity in volume over the last 48 hours. Chest tube to waterseal. Chest x-ray yesterday showed no pneumothorax, residual right oral effusion, and mild airspace disease, bilateral. Chest tube removal: The patient placed semirecumbent session in the bed. All dressings removed suture removed, and Xeroform, 4 x 4's applied over the exit site the chest tube. The chest tube was swiftly removed and compression dressing applied with tape securing into position. Patient tolerated procedure well. Patient will have a PA lateral chest x-ray in 2 and half hours assess lung status.
[2020-02-02 16:38] VITALS: BP 139/86
--- NOTE | 2020-02-02 21:09 | Left Against Medical Advice ---
Against Medical Advice Admission Date/Time: 01/22/20 22:49 Primary Care Provider: Date of Patient Emigration: 02/02/20 - Diagnosis: (1) Parapneumonic effusion Is this a current diagnosis for this admission?: Yes (2) Infectious endocarditis Is this a current diagnosis for this admission?: Yes (3) Bacteremia due to Staphylococcus aureus Is this a current diagnosis for this admission?: Yes (4) Cavitary pneumonia Is this a current diagnosis for this admission?: Yes (5) Acute kidney injury Is this a current diagnosis for this admission?: Yes (6) Back pain Is this a current diagnosis for this admission?: Yes (7) Right shoulder pain Is this a current diagnosis for this admission?: Yes (8) Microcytic hypochromic anemia Is this a current diagnosis for this admission?: Yes (9) Hypocalcemia Is this a current diagnosis for this admission?: Yes (10) Hypovitaminosis D Is this a current diagnosis for this admission?: Yes (11) Hypokalemia Is this a current diagnosis for this admission?: Yes (12) IVDU (intravenous drug user) Is this a current diagnosis for this admission?: Yes (13) Opioid dependence Is this a current diagnosis for this admission?: Yes (14) Opioid withdrawal Is this a current diagnosis for this admission?: Yes (15) Hypoalbuminemia Is this a current diagnosis for this admission?: Yes (16) Transaminitis Is this a current diagnosis for this admission?: Yes (17) Tobacco abuse Is this a current diagnosis for this admission?: Yes (18) Malaise and fatigue Is this a current diagnosis for this admission?: Yes (19) Suspected COVID-19 virus infection Is this a current diagnosis for this admission?: Yes (20) Suspected tuberculosis Is this a current diagnosis for this admission?: Yes (21) Gynecomastia, male Is this a current diagnosis for this admission?: Yes (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 MARIA L PA is a 34 M, who LEFT AGAINST MEDICAL ADVICE. The Patient was admitted on 01/22/20 22:49. See today's progress note. Unfortunately the patient opted to leave AGAINST MEDICAL ADVICE. His PICC line was removed. The patient's nurse once again encouraged him to remain in the hospital. The patient told the nurse that he intends to return. Unfortunately he needs to go through the emergency department. He is taking a significant risk. The chest tube is just removed and if that leaks he will get a pneumothorax which could be catastrophic.
[2020-02-04 07:06] LABS: TESTOSTERONE FREE (DIRECT) 7.3 pg/mL (8.7-25.1)
== END 2020-02-02 18:33 | disposition left against medical advice (07) | DRG 288 ==
LOC: ER 14:55 → EH 22:49 → 3N 01-23 03:11 → 4N 01-25 09:05 → 5 01-25 14:11
PROVIDERS: ADMIT Student in an Organized Health Care Education/Training Program; ATTEND Hospitalist
PROC: B24BZZ4 Ultrasonography of Heart with Aorta, Transesophageal (ICD-10-PCS; 2020-01-23)
PROC: 30233N1 Transfusion of Nonautologous Red Blood Cells into Peripheral Vein, Percutaneous Approach (ICD-10-PCS; 2020-01-28)
PROC: 02HV33Z Insertion of Infusion Device into Superior Vena Cava, Percutaneous Approach (ICD-10-PCS; 2020-01-28)
PROC: 0W9930Z Drainage of Right Pleural Cavity with Drainage Device, Percutaneous Approach (ICD-10-PCS; principal; 2020-01-29)
PROC: 30233N1 Transfusion of Nonautologous Red Blood Cells into Peripheral Vein, Percutaneous Approach (ICD-10-PCS; 2020-01-29)
DX: I33.0 Acute and subacute infective endocarditis (principal); J18.9 Pneumonia, unspecified organism; I76 Septic arterial embolism; N17.9 Acute kidney failure, unspecified; F11.20 Opioid dependence, uncomplicated; R78.81 Bacteremia; J91.8 Pleural effusion in other conditions classified elsewhere; Z20.828 Contact with and (suspected) exposure to other viral communicable diseases; D50.9 Iron deficiency anemia, unspecified; E83.51 Hypocalcemia; E55.9 Vitamin D deficiency, unspecified; E87.6 Hypokalemia; N62 Hypertrophy of breast; F32.9 Major depressive disorder, single episode, unspecified; I10 Essential (primary) hypertension; F17.200 Nicotine dependence, unspecified, uncomplicated; F41.9 Anxiety disorder, unspecified; M25.511 Pain in right shoulder; B95.61 Methicillin susceptible Staphylococcus aureus infection as the cause of diseases classified elsewhere; M54.5 Low back pain; Z53.8 Procedure and treatment not carried out for other reasons; Z23 Encounter for immunization; Z79.899 Other long term (current) drug therapy; Z88.0 Allergy status to penicillin; Z91.14 Patient's other noncompliance with medication regimen
CPT/HCPCS: 00520; 36415; 36430; 36573; 70250; 71045; 71250; 72128; 72131; 74176; 80048; 80053; 80069; 80074; 80076; 80202; 80307; 81001; 82306; 82330; 82565; 82570; 82607; 82728; 82746; 82803; 83540; 83550; 83605; 83735; 83970; 84100; 84300; 84402; 84403; 84484; 85025; 85027; 85045; 85610; 85652; 86140; 86480; 86698; 86701; 86850; 86900; 86901; 86920; 87015; 87040; 87070; 87077; 87116; 87150; 87186; 87205; 87206; 87635; 87804; 87880; 93005; 93010; 93306; 96361; 96365; 96375; 99285; J0610; C9803; J0571; J1170; J1642; J1644; J1940; J1956; J2250; J2704; J2997; J3010; J3360; J3370; J3490; J7030; J7060; J7120; P9016; P9047; S0032

== ENCOUNTER 2020-04-16 00:48 | Emergency (ER) | payer MEDICAID ==
[2020-04-16 01:15] LABS: ABSOLUTE BASOPHILS # (AUTO) 0.2 10^3/uL (0.0-0.2); ABSOLUTE EOSINOPHILS # (AUTO) 0.2 10^3/uL (0.0-0.6); ABSOLUTE LYMPHOCYTES (AUTO) 2.2 10^3/uL (0.5-4.7); ABSOLUTE MONOCYTES (AUTO) 0.9 10^3/uL (0.1-1.4); ABSOLUTE NEUT (AUTO) 6.5 10^3/uL (1.7-8.2); BASOPHILS % (AUTO) 1.9 % (0-2); EOSINOPHILS % (AUTO) 2.5 % (0-6); HEMATOCRIT 39.1 % (37.9-51.0); HEMOGLOBIN 12.9 g/dL (13.5-17.0); MEAN CORPUSCULAR HEMOGLOBIN 26.2 pg (27.0-33.4); MEAN CORPUSCULAR HGB CONC 32.9 g/dL (32.0-36.0); MEAN CORPUSCULAR VOLUME 80 fl (80-97); PLATELET COUNT 242 10^3/uL (150-450); RED BLOOD COUNT 4.91 10^6/uL (4.35-5.55); RED CELL DISTRIBUTION WIDTH 14.2 % (11.5-14.0); SEGMENTED NEUTROPHILS % (AUTO) 64.6 % (42-78); TOTAL CELLS COUNTED % (AUTO) 100 %; WHITE BLOOD COUNT 10.1 10^3/uL (4.0-10.5)
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
[2020-04-16 01:42] LABS: ALBUMIN 2.8 g/dL (3.5-5.0); ALKALINE PHOSPHATASE 198 U/L (38-126); ANION GAP 8 (5-19); ASPARTATE AMINO TRANSFERASE 665 U/L (17-59); BILIRUBIN,DIRECT 0.4 mg/dL (0.0-0.4); BILIRUBIN,TOTAL 0.7 mg/dL (0.2-1.3); BLOOD UREA NITROGEN 12 mg/dL (7-20); CALCIUM 7.6 mg/dL (8.4-10.2); CARBON DIOXIDE 21 mmol/L (22-30); CHLORIDE 111 mmol/L (98-107); CREATINE KINASE 25 U/L (55-170); GLUCOSE 84 mg/dL (75-110); TOTAL PROTEIN 6.1 g/dL (6.3-8.2)
[2020-04-16 01:53] LABS: CREATINE KINASE MB 0.81 ng/mL (<4.55)
[2020-04-16 01:56] LABS: TROPONIN I < 0.012 ng/mL
[2020-04-16] MEDS ORDERED: POTASSI CL 20 MEQ/50 ML RIDER 20 MEQ/50 ML RTUPB IV ONE (01:59)
[2020-04-16] MEDS ORDERED: LABETALOL HCL INJ 20 MG/4 ML DISP.SYRIN IV ONE (02:02)
--- NOTE | 2020-04-16 02:39 | RADIOLOGY REPORT (SQ) ---
CHEST X-RAY 1 VIEW on 04/16/2020 at 2:04 AM CLINICAL INDICATION: Chest pain COMPARISON: 02/01/2020 FINDINGS: There is minimal linear atelectasis or scarring in the lung bases. The lungs are otherwise clear. Cardiac, hilar and mediastinal contours are within normal limits. Pulmonary vascularity is within normal limits. No bony abnormality is noted. IMPRESSION: No active disease.
[2020-04-16] MEDS ORDERED: KETOROLAC TROMETHAMINE INJ/PF 30 MG/1 ML SDV IV ONE (02:44)
[2020-04-16] MEDS ORDERED: DIPHENHYDRAMINE HCL 50 MG/ML VIAL IV ONE (02:44)
[2020-04-16 02:48] LABS: URINE AMPHETAMINES SCREEN NEGATIVE; URINE BARBITURATES SCREEN NEGATIVE; URINE BENZODIAZEPINES SCREEN NEGATIVE; URINE COCAINE SCREEN NEGATIVE; URINE MARIJUANA (THC) SCREEN NEGATIVE; URINE METHADONE SCREEN NEGATIVE; URINE PHENCYCLIDINE SCREEN NEGATIVE
[2020-04-16 02:54] LABS: APPEARANCE,URINE CLEAR; BILIRUBIN,URINE NEGATIVE (NEGATIVE); COLOR,URINE YELLOW; GLUCOSE, URINE NEGATIVE (NEGATIVE); KETONES,URINE NEGATIVE (NEGATIVE); LEUKOCYTE ESTERASE,URINE NEGATIVE (NEGATIVE); NITRITE,URINE NEGATIVE (NEGATIVE); PROTEIN,URINE NEGATIVE (NEGATIVE); URINE SPECIFIC GRAVITY 1.015
[2020-04-16 04:10] VITALS: BP 145/107
[2020-04-17 08:38] LABS: HEPATITS B SURFACE ANTIGEN Negative (Negative)
[2020-04-18 09:22] LABS: HEPATITIS C VIRUS ANTIBODY 1.1 s/co ratio (0.0-0.9)
== END 2020-04-16 04:12 | disposition home or self-care (01) ==
LOC: ER 00:48
DX: E87.6 Hypokalemia (principal); K75.9 Inflammatory liver disease, unspecified; F19.10 Other psychoactive substance abuse, uncomplicated; R07.9 Chest pain, unspecified; R06.02 Shortness of breath; F17.200 Nicotine dependence, unspecified, uncomplicated
CPT/HCPCS: 99284; 96375; 96365; 96366; 36415; 87040; 82553; 82550; 85025; 80053; 81001; 84484; 80307; 80074; 71045; J1200; J3490; J1885; J3480